=== PATIENT | female | born 1955 | race Caucasian/White ===

== ENCOUNTER → 2016-04-17 | Outpatient (CLI) | payer MEDICARE ==
--- NOTE | 2016-04-17 15:01 | XR ---
EXAMINATION TYPE: XR lumbosacral spine min 4V DATE OF EXAM: 04/17/2016 2:40 PM CLINICAL HISTORY: pain COMPARISON: NONE TECHNIQUE: Frontal, lateral, and oblique images of the lumbar spine are obtained. FINDINGS: There are 5 lumbar type vertebral bodies identified. The lumbar spine shows satisfactory alignment without evidence of acute fracture or dislocation. Vertebral body heights are within normal limits. Mild degenerative disc space narrowing. The facet joint arthropathy. The overlying soft ti ssue appears unremarkable. IMPRESSION: No acute fracture or dislocation is seen in the lumbar spine.ICD 10 NO FRACTURE, INITIAL EVALUATION
--- NOTE | 2016-04-17 15:03 | XR ---
EXAMINATION TYPE: XR thoracic spine complete DATE OF EXAM: 04/17/2016 2:40 PM CLINICAL HISTORY: pain TECHNIQUE: Frontal, lateral, and swimmer's view of thoracic spine are obtained. COMPARISON: None. FINDINGS: Thoracic spine show satisfactory alignment without evidence of acute fracture or dislocatio n. Vertebral body heights are preserved. Mild degenerative disc space narrowing is identified. Vis ualized ribs are unremarkable. IMPRESSION: No acute fracture or dislocation is seen in the thoracic spine. ICD 10 NO FRACTURE, INIT IAL EVALUATION
== END ==
LOC: RADXRMAIN 14:05
PROVIDERS: ATTEND Family Medicine
DX: M54.5 Low back pain (principal); M54.6 Pain in thoracic spine
CPT/HCPCS: 72072; 72110

== ENCOUNTER 2016-08-21 23:46 | Emergency (ER) | payer MEDICARE ==
[2016-08-21 23:50] VITALS: RESP 18
--- NOTE | 2016-08-22 00:18 | ED ---
Skin/Abscess/FB HPI - General Chief complaint: Skin/Abscess/Foreign Body Stated complaint: cyst Time Seen by Provider: 08/21/16 23:54 Source: patient, RN notes reviewed Mode of arrival: ambulatory Limitations: no limitations - History of Present Illness Initial comments: 61-year-old female presents emergency Department chief complaint of right jaw pain. Patient states started last 1 week.. Patient states that she has recurrent infections secondary to her dentition. She did state this is is the worse that it's been in the past. Patient denies any fever or chills. She states pain radiates up to her right side of her ear and face region. Patient denies any neck pain no neck stiffness. Patient does take chronic pain meds and which she is on Percocet. - Related Data Home Medications Medication Instructions Recorded Confirmed LORazepam [Ativan] 2 mg PO TID PRN 08/11/13 08/21/16 Levothyroxine Sodium [Synthroid] 25 mcg PO DAILY 08/11/13 08/21/16 Primidone [Mysoline] 50 mg PO DAILY 08/11/13 08/21/16 Aspirin 325 mg PO DAILY 01/31/15 08/21/16 Umeclidinium Stanton [Incruse 62.5 mcg INHALATION RT-DAILY PRN 01/31/15 08/21/16 Ellipta] Calcium Carb-Vit D 500Mg-200Un 1 tab PO DAILY 09/02/15 08/21/16 [Oscal 500+D] Zinc 50 mg PO DAILY 09/02/15 08/21/16 Biotin 5 mg PO DAILY 08/21/16 08/21/16 Multivitamins, Thera [Multivitamin 1 tab PO DAILY 08/21/16 08/21/16 (formulary)] Previous Rx's Medication Instructions Recorded Clindamycin HCl 300 mg PO Q6HR #40 cap 08/22/16 Allergies Allergy/AdvReac Type Severity Reaction Status Date / Time acetaminophen [From Vicodin] Allergy Unknown Verified 08/21/16 23:50 codeine Allergy Unknown Verified 08/21/16 23:50 hydrocodone bitartrate Allergy Unknown Verified 08/21/16 23:50 [From Vicodin] ibuprofen [From Motrin] Allergy Unknown Verified 08/21/16 23:50 oxycodone [From Percocet] Allergy Itching Verified 08/21/16 23:51 ANTIBIOTICS- ALL OF THEM Allergy Unknown Uncoded 08/21/16 23:50 Review of Systems ROS Statement: Those systems with pertinent positive or pertinent negative responses have been documented in the HPI. ROS Other: All systems not noted in ROS Statement are negative. Past Medical History Past Medical History: CVA/TIA, Osteoarthritis (OA) Additional Past Medical History / Comment(s): CPM, 4 STROKES History of Any Multi-Drug Resistant Organisms: None Reported Past Surgical History: Hysterectomy Additional Past Surgical History / Comment(s): uterine suspension Past Psychological History: Anxiety, Bipolar, Depression Smoking Status: Former smoker Past Alcohol Use History: None Reported Past Drug Use History: Marijuana General Exam Limitations: no limitations General appearance: alert, in no apparent distress Head exam: Present: atraumatic, normocephalic, normal inspection Eye exam: Present: normal appearance, PERRL, EOMI. Absent: scleral icterus, conjunctival injection, periorbital swelling ENT exam: Present: mucous membranes moist. Absent: normal exam, normal oropharynx (Edentulous, poor dentition there is swelling to right side of the jaw along more anterior chin region. There appears to be in abscesses as a large area of swelling with moderate tenderness) Neck exam: Present: normal inspection, full ROM. Absent: tenderness, meningismus, lymphadenopathy Respiratory exam: Present: normal lung sounds bilaterally. Absent: respiratory distress, wheezes, rales, rhonchi, stridor Cardiovascular Exam: Present: regular rate, normal rhythm, normal heart sounds. Absent: systolic murmur, diastolic murmur, rubs, gallop, clicks Skin exam: Present: warm, dry, intact, normal color. Absent: rash Course Vital Signs 08/21/16 23:46 Temperature 97.1 F L Pulse Rate 88 Respiratory 18 Rate Blood Pressure 104/69 O2 Sat by Pulse 97 Oximetry Medical Decision Making - Medical Decision Making 61-year-old female presented emergency Department for facial swelling. Patient has dental infection there is no drainable abscess. There is no evidence of ostomy nurse on x-ray. Return parameters were discussed. Disposition Clinical Impression: Dental infection Disposition: HOME SELF-CARE Condition: Stable Instructions: Dental Abscess (ED) Additional Instructions: Please return to the Emergency Department if symptoms worsen or any other concerns. Prescriptions: Clindamycin HCl 300 mg PO Q6HR #40 cap Referrals: Emeka French DO [Primary Care Provider] - 1-2 days Time of Disposition: 01:37
--- NOTE | 2016-08-22 01:22 | XR ---
EXAM: XR Mandible Complete, 4 or More Views CLINICAL HISTORY: Reason: Pain TECHNIQUE: Frontal, oblique and lateral views of the mandible. COMPARISON: No relevant prior studies available. FINDINGS: Dental: No definitive acute findings. Bones/joints: Unremarkable. No acute fracture. No dislocation. Soft tissues: Unremarkable. IMPRESSION: Normal mandible x-rays. If there is further clinical concern, CT may be performed for further evaluation.
[2016-08-22] MEDS ORDERED: MORPHINE SULFATE 4 MG/ML SYRINGE IM STA (01:35)
[2016-08-22] MEDS ORDERED: CLINDAMYCIN 150 MG CAP PO STA (01:35)
[2016-08-22 02:28] VITALS: BP 117/58; PULSE 82; TEMP 97.6
== END 2016-08-22 02:26 | disposition home or self-care (01) ==
LOC: EC 23:46
DX: K04.7 Periapical abscess without sinus (principal); H92.01 Otalgia, right ear; M19.90 Unspecified osteoarthritis, unspecified site; Z87.891 Personal history of nicotine dependence; Z79.82 Long term (current) use of aspirin; Z79.899 Other long term (current) drug therapy; Z88.1 Allergy status to other antibiotic agents; Z88.5 Allergy status to narcotic agent; Z88.6 Allergy status to analgesic agent; Z88.8 Allergy status to other drugs, medicaments and biological substances
CPT/HCPCS: 70110; 99283; 96372; J2270

== ENCOUNTER 2017-02-26 19:48 | Emergency (ER) | payer MEDICARE ==
--- NOTE | 2017-02-26 20:53 | XR ---
EXAMINATION TYPE: XR chest 2V DATE OF EXAM: 02/26/2017 COMPARISON: 11/01/2015 HISTORY: Cough TECHNIQUE: Frontal and lateral views of the chest are obtained. FINDINGS: There is no heart failure nor confluent pneumonic infiltrate. There is a calcified granulo ma in the right middle lobe. Heart size is normal. There is no evidence of pleural effusion. Bony tho rax appears intact. IMPRESSION: No active cardiopulmonary disease. No change.
[2017-02-26 21:01] LABS: Appearance,Urine Cloudy (Clear); Bacteria,Urine Rare /hpf; Bilirubin,Urine Negative (Negative); Blood,Urine Moderate (Negative); Color,Urine Yellow; Glucose,Urine (UA) Negative (Negative); Ketones,Urine Negative (Negative); Leukocyte Esterase,Urine Large (Negative); Mucus,Urine Rare /hpf; Nitrite,Urine Negative (Negative); PH, Urine 5.5 (5.0-8.0); Protein,Urine 1+ (Negative); RBC,Urine 61 /hpf (0-5); Specific Gravity,Urine 1.019 (1.001-1.035); Squamous Epithelial Cell,Urine 1 /hpf (0-4); Urobilinogen,Urine <2.0 mg/dL (<2.0); WBC,Urine >182 /hpf (0-5)
--- NOTE | 2017-02-26 21:04 | XR ---
EXAMINATION TYPE: XR soft tissue neck DATE OF EXAM: 02/26/2017 COMPARISON: NONE HISTORY: Cough TECHNIQUE: 3 views FINDINGS: Epiglottis is normal. Subglottic trachea appears normal. Tonsils and adenoids appear normal . There is no sign of a foreign body. IMPRESSION: Normal cervical soft tissue exam.
--- NOTE | 2017-02-26 21:22 | ED ---
General Adult HPI - General Chief complaint: Abdominal Pain Stated complaint: UTI/throat problems Time Seen by Provider: 02/26/17 20:26 Source: patient, RN notes reviewed Mode of arrival: ambulatory Limitations: no limitations - History of Present Illness Initial comments: This a 61-year-old female presents emergency Department chief complaint of sore throat, throat irritation and UTI symptoms. Patient states symptoms have been present for 2 weeks. Patient states she has a dry cough nonproductive and slight running nose. Patient states that she has no difficulty swallowing difficulty breathing. She does admit to some hypothyroidism though she states that she takes Synthroid for. Patient denies any known fever or chills denies any flank pain. She does complain of some lower abdominal pain with associated urinary frequency and dysuria. Patient states she's been trying to treat it with [id number] medications and no relief. - Related Data Home Medications Medication Instructions Recorded Confirmed LORazepam [Ativan] 2 mg PO TID PRN 08/11/13 02/26/17 Levothyroxine Sodium [Synthroid] 25 mcg PO DAILY 08/11/13 02/26/17 Primidone [Mysoline] 50 mg PO DAILY 08/11/13 02/26/17 Aspirin 325 mg PO DAILY 01/31/15 02/26/17 Calcium Carb-Vit D 500Mg-200Un 1 tab PO DAILY 09/02/15 02/26/17 [Oscal 500+D] Zinc 50 mg PO DAILY 09/02/15 02/26/17 Multivitamins, Thera [Multivitamin 1 tab PO DAILY 08/21/16 02/26/17 (formulary)] oxyCODONE HCL 10 mg PO HS PRN 02/26/17 02/26/17 oxyCODONE-APAP 10-325MG [Percocet 1 tab PO ONCE PRN 02/26/17 02/26/17 10-325 mg] Previous Rx's Medication Instructions Recorded Ciprofloxacin HCl [Cipro] 500 mg PO Q12HR #10 tablet 02/26/17 Allergies Allergy/AdvReac Type Severity Reaction Status Date / Time acetaminophen [From Vicodin] Allergy Unknown Verified 02/26/17 20:43 codeine Allergy Unknown Verified 02/26/17 20:43 hydrocodone bitartrate Allergy Unknown Verified 02/26/17 20:43 [From Vicodin] ibuprofen [From Motrin] Allergy Unknown Verified 02/26/17 20:43 ANTIBIOTICS- ALL OF THEM Allergy Unknown Uncoded 02/26/17 20:07 Review of Systems ROS Statement: Those systems with pertinent positive or pertinent negative responses have been documented in the HPI. ROS Other: All systems not noted in ROS Statement are negative. Past Medical History Past Medical History: CVA/TIA, Osteoarthritis (OA) Additional Past Medical History / Comment(s): CPM, 4 STROKES History of Any Multi-Drug Resistant Organisms: None Reported Past Surgical History: Hysterectomy Additional Past Surgical History / Comment(s): uterine suspension Past Psychological History: Anxiety, Bipolar, Depression Smoking Status: Former smoker Past Alcohol Use History: None Reported Past Drug Use History: Marijuana General Exam Limitations: no limitations General appearance: alert, in no apparent distress Head exam: Present: atraumatic, normocephalic, normal inspection Eye exam: Present: normal appearance, PERRL, EOMI. Absent: scleral icterus, conjunctival injection, periorbital swelling ENT exam: Present: normal exam, normal oropharynx, mucous membranes moist Neck exam: Present: normal inspection, full ROM. Absent: tenderness, meningismus, lymphadenopathy Respiratory exam: Present: normal lung sounds bilaterally. Absent: respiratory distress, wheezes, rales, rhonchi, stridor Cardiovascular Exam: Present: regular rate, normal rhythm, normal heart sounds. Absent: systolic murmur, diastolic murmur, rubs, gallop, clicks GI/Abdominal exam: Present: soft, tenderness (Mild lower abdominal tenderness), normal bowel sounds. Absent: distended, guarding, rebound, rigid Back exam: Absent: CVA tenderness (R), CVA tenderness (L) Skin exam: Present: warm, dry, intact, normal color. Absent: rash Course Vital Signs 02/26/17 20:03 Temperature 98.2 F Pulse Rate 102 H Respiratory 20 Rate Blood Pressure 112/86 O2 Sat by Pulse 97 Oximetry Medical Decision Making - Medical Decision Making 61-year-old female presented for UTI symptoms, sore throat. Patient does have evidence of urinary tract infection. Patient was started on antibiotics at this time. Patient symptoms of sore throat mostly related postnasal drainage. Patient's x-rays reviewed no acute abnormality. Patient's vitals are stable this time. Patient will follow-up with PCP and return parameters were discussed. - Lab Data Lab Results 02/26/17 Range/Units 20:41 Urine Color Yellow Urine Appearance Cloudy H (Clear) Urine pH 5.5 (5.0-8.0) Ur Specific [place] 1.019 (1.001-1.035) Urine Protein 1+ H (Negative) Urine Glucose (UA) Negative (Negative) Urine Ketones Negative (Negative) Urine Blood Moderate H (Negative) Urine Nitrite Negative (Negative) Urine Bilirubin Negative (Negative) Urine Urobilinogen <2.0 (<2.0) mg/dL Ur Leukocyte Esterase Large H (Negative) Urine RBC 61 H (0-5) /hpf Urine WBC >182 H (0-5) /hpf Ur Squamous Epith Cells 1 (0-4) /hpf Urine Bacteria Rare H (None) /hpf Urine Mucus Rare H (None) /hpf Disposition Clinical Impression: Throat discomfort, UTI (urinary tract infection) Disposition: HOME SELF-CARE Condition: Stable Instructions: Urinary Tract Infection in Women (ED) Additional Instructions: Please return to the Emergency Department if symptoms worsen or any other concerns. Prescriptions: Ciprofloxacin HCl [Cipro] 500 mg PO Q12HR #10 tablet Referrals: Emeka French DO [Primary Care Provider] - 1-2 days Time of Disposition: 21:22
[2017-02-26] MEDS ORDERED: CIPROFLOXACIN HCL 500 MG TAB PO STA (21:24)
[2017-02-26] MEDS ORDERED: oxyCODONE-APAP 5-325MG 1 EACH TAB PO STA (21:25)
[2017-02-26 21:54] VITALS: BP 119/56; PULSE 88; RESP 18; TEMP 97.1
== END 2017-02-26 21:50 | disposition home or self-care (01) ==
LOC: EC 19:48
DX: N39.0 Urinary tract infection, site not specified (principal); J02.9 Acute pharyngitis, unspecified; R05 Cough; R09.89 Other specified symptoms and signs involving the circulatory and respiratory systems; E03.9 Hypothyroidism, unspecified; F31.9 Bipolar disorder, unspecified; Z86.73 Personal history of transient ischemic attack (TIA), and cerebral infarction without residual deficits; Z87.891 Personal history of nicotine dependence; Z98.890 Other specified postprocedural states; Z79.82 Long term (current) use of aspirin; Z79.899 Other long term (current) drug therapy; Z88.1 Allergy status to other antibiotic agents; Z88.5 Allergy status to narcotic agent; Z88.6 Allergy status to analgesic agent
CPT/HCPCS: 70360; 71046; 81001; 87077; 87086; 87186; 99284

== ENCOUNTER 2017-03-26 09:27 | Inpatient (IN) | payer MEDICARE ==
[2017-03-26] MEDS ORDERED: SODIUM CHLORIDE 0.9% 1,000 ML IV STA (10:07)
--- NOTE | 2017-03-26 10:10 | ED ---
Chest Pain HPI - General Chief Complaint: Chest Pain Stated Complaint: CHEST PAIN Time Seen by Provider: 03/26/17 10:07 Source: patient, family, RN notes reviewed Mode of arrival: wheelchair Limitations: no limitations - History of Present Illness Initial Comments: This is a 60-year-old female who states she had the onset sometime early this morning of anterior chest pain it woke her from sleep pressure-like severe it radiated down her left arm and up her left neck. She states she drifts back off to sleep and then 06:30 had increased pain now is about 5/10 she states was much worse in an she also states tonight before she had nausea and vomiting and started developing slight diarrhea today. Denies any cough fevers chills sweats she was over exposed to somebody with flu symptoms or cold symptoms several days ago. The patient did have exposure to someone with cold symptoms with cough and sneezing. No known history of heart disease she has had similar pains in the past however MD Complaint: chest pain, other - Related Data Home Medications Medication Instructions Recorded Confirmed LORazepam [Ativan] 2 mg PO TID PRN 08/11/13 03/26/17 Levothyroxine Sodium [Synthroid] 25 mcg PO DAILY 08/11/13 03/26/17 Primidone [Mysoline] 50 mg PO HS 08/11/13 03/26/17 Aspirin 325 mg PO HS 01/31/15 03/26/17 Calcium Carb-Vit D 500Mg-200Un 1 tab PO HS 09/02/15 03/26/17 [Oscal 500+D] Zinc 50 mg PO HS 09/02/15 03/26/17 Multivitamins, Thera [Multivitamin 1 tab PO HS 08/21/16 03/26/17 (formulary)] oxyCODONE HCL 10 mg PO HS PRN 02/26/17 03/26/17 Allergies Allergy/AdvReac Type Severity Reaction Status Date / Time acetaminophen [From Vicodin] Allergy Unknown Verified 03/26/17 09:54 codeine Allergy Unknown Verified 03/26/17 09:54 hydrocodone bitartrate Allergy Unknown Verified 03/26/17 09:54 [From Vicodin] ibuprofen [From Motrin] Allergy Unknown Verified 03/26/17 09:54 ANTIBIOTICS- ALL OF THEM Allergy Unknown Uncoded 03/26/17 09:33 Review of Systems ROS Statement: Those systems with pertinent positive or pertinent negative responses have been documented in the HPI. ROS Other: All systems not noted in ROS Statement are negative. Past Medical History Past Medical History: CVA/TIA, Osteoarthritis (OA) Additional Past Medical History / Comment(s): CPM, 4 STROKES History of Any Multi-Drug Resistant Organisms: None Reported Past Surgical History: Hysterectomy Additional Past Surgical History / Comment(s): uterine suspension Past Psychological History: Anxiety, Bipolar, Depression Smoking Status: Former smoker Past Alcohol Use History: None Reported Past Drug Use History: Marijuana General Exam - General Exam Comments Initial Comments: This is a well-developed well-nourished awake alert anxious appearing female Limitations: no limitations General appearance: alert, anxious Head exam: Present: atraumatic, normocephalic, normal inspection Eye exam: Present: normal appearance, PERRL, EOMI. Absent: scleral icterus, conjunctival injection, periorbital swelling ENT exam: Present: normal exam, mucous membranes moist Neck exam: Present: normal inspection. Absent: tenderness, meningismus, lymphadenopathy Respiratory exam: Present: normal lung sounds bilaterally. Absent: respiratory distress, wheezes, rales, rhonchi, stridor, chest wall tenderness Cardiovascular Exam: Present: regular rate, normal rhythm, normal heart sounds. Absent: systolic murmur, diastolic murmur, rubs, gallop, clicks GI/Abdominal exam: Present: soft, normal bowel sounds. Absent: distended, tenderness, guarding, rebound, rigid Extremities exam: Present: normal inspection, full ROM, normal capillary refill. Absent: tenderness, pedal edema, joint swelling, calf tenderness Back exam: Present: normal inspection, full ROM. Absent: tenderness, CVA tenderness (R), CVA tenderness (L), muscle spasm, paraspinal tenderness, vertebral tenderness, rash noted Neurological exam: Present: alert, oriented X3, CN II-XII intact Psychiatric exam: Present: normal affect, anxious Skin exam: Present: warm, dry, intact, normal color. Absent: rash Course Vital Signs 03/26/17 03/26/17 03/26/17 09:30 10:32 10:37 Temperature 97.3 F L Pulse Rate 94 87 100 Respiratory 20 18 20 Rate Blood Pressure 118/67 139/80 115/75 O2 Sat by Pulse 97 96 96 Oximetry 03/26/17 03/26/17 03/26/17 10:43 11:00 12:00 Temperature Pulse Rate 90 92 92 Respiratory 20 20 20 Rate Blood Pressure 120/75 110/62 107/62 O2 Sat by Pulse 97 95 95 Oximetry 03/26/17 13:39 Temperature Pulse Rate 99 Respiratory 18 Rate Blood Pressure 107/57 O2 Sat by Pulse 94 L Oximetry - Reevaluation(s) Reevaluation #1: 03/26/17 14:57 Patient did get response from nitroglycerin with resolution of her pain. Chest Pain MDM - MDM I did review the imaging and reports no acute findings. The patient will be admitted to discuss case with Dr. Taylor. Cardiology will be consulted. Critical Care Time Critical Care Time: Yes Critical Care Time: 31 minutes of critical care time which includes initial presentation with history physical labs x-rays several reevaluation patient responsive therapy discuss with the patient family regarding findings discussion with Dr. Taylor. Admission orders and documentation of the above. Disposition Clinical Impression: Chest pain, Unstable angina pectoris Disposition: ADMITTED IP TO THIS HOSP Condition: Stable Referrals: Emeka French DO [Primary Care Provider] - 1-2 days
[2017-03-26] MEDS: NITROGLYCERIN SL TABS 0.4 MG TAB SUBLINGUAL STA ×2 (10:32→10:38)
[2017-03-26 10:34] LABS: Basophils # (A) 0.1 k/uL (0-0.2); Basophils % (A) 1 %; Eosinophils # (A) 0.2 k/uL (0-0.7); Eosinophils % (A) 1 %; HGB 14.8 gm/dL (11.4-16.0); Lymphocytes # (A) 1.7 k/uL (1.0-4.8); Lymphocytes % (A) 16 %; MCH 27.5 pg (25.0-35.0); MCHC 31.5 g/dL (31.0-37.0); MCV 87.2 fL (80.0-100.0); Mean Platelet Volume 6.9; Monocytes # (A) 0.6 k/uL (0-1.0); Monocytes % (A) 5 %; Neutrophils # (A) 8.3 k/uL (1.3-7.7); Neutrophils % (A) 76 %; Platelet Count 369 k/uL (150-450); RDW 13.7 % (11.5-15.5); WBC 10.9 k/uL (3.8-10.6)
[2017-03-26] MEDS ORDERED: NITROGLYCERIN OINT 1 INCH/GM PACKET TOPICAL STA (10:44)
[2017-03-26] MEDS ORDERED: LORazepam 2 MG/ML INJ IV STA (10:45)
[2017-03-26 10:48] LABS: ALT 27 U/L (9-52); AST 24 U/L (14-36); Albumin 4.3 g/dL (3.5-5.0); Alkaline Phosphatase 102 U/L (38-126); Amylase 82 U/L (30-110); Anion Gap 16 mmol/L; Blood Urea Nitrogen 12 mg/dL (7-17); Carbon Dioxide 20 mmol/L (22-30); Chloride 108 mmol/L (98-107); Glucose 124 mg/dL (74-99); Lipase 74 U/L (23-300); Magnesium 1.9 mg/dL (1.6-2.3); Potassium 4.2 mmol/L (3.5-5.1); Sodium 144 mmol/L (137-145); Total Bilirubin 0.5 mg/dL (0.2-1.3); Total Protein 7.7 g/dL (6.3-8.2)
[2017-03-26 10:52] LABS: D-Dimer 0.46 mg/L FEU (<0.60); Partial Thromboplastin Time 25.3 sec (22.0-30.0)
[2017-03-26 11:06] LABS: Creatine Kinase 36 U/L (30-135)
--- NOTE | 2017-03-26 11:15 | XR ---
EXAMINATION TYPE: XR chest 2V DATE OF EXAM: 03/26/2017 COMPARISON: 02/26/2017 HISTORY: 61-year-old female with chest pain TECHNIQUE: AP and lateral views FINDINGS: The cardiomediastinal silhouette, aorta, and pulmonary vasculature are within normal limits. Stable calcified granuloma in the right middle lobe. No consolidation or pleural effusion. IMPRESSION: Chronic changes without acute cardiopulmonary process.
[2017-03-26 11:19] LABS: Creatine Kinase MB <0.2 ng/mL (0.0-2.4); Troponin I <0.012 ng/mL (0.000-0.034)
[2017-03-26] MEDS ORDERED: HEPARIN SOD,PORK IN 0.45% NACL 25,000 UNIT in 0.45% NACL 1 500ML.BAG IV SCH (15:00)
[2017-03-26] MEDS ORDERED: NITROGLYCERIN SL TABS 0.4 MG TAB SUBLINGUAL PRN (15:00)
[2017-03-26] MEDS: HEPARIN SODIUM,PORCINE 5,000 UNIT/ML 1 ML VIAL IV ONE ×2 (15:28→22:40)
--- NOTE | 2017-03-26 16:21 | P.HPIM ---
History of Present Illness H&P Date: 03/26/17 Chief Complaint: chest pain This is a 61-year-old female one of Dr. French with a previous medical history significant for central pontine myelinosis(CPM) , myoclonic jerking, tremors, hypothyroidism, start arthritis, chronic tobacco use and dependence, patient was initially diagnosed with severe endometriosis for which she underwent total abdominal hysterectomy with bilateral salpingo-oophorectomy after surgery she hemorrhaged and she ended up having significant hypotension requiring IV fluid resuscitation and few years later she was diagnosed with central pontine melanosis at [facility] she was disabled because of that, patient also was diagnosed with anxiety and depressive disorder along with bipolar disorder, patient was in her usual state of health about today in the morning at 2:00 in the morning woke up in the morning complaining of left- sided chest heaviness radiating to the neck and left shoulder down to the left arm with increased numbness patient felt like a choking episode that traveled through her body was significant heaviness in her chest, patient [facility] had a twelve-lead EKG that showed normal sinus rhythm with nonspecific T-wave changes, patient did have a bit of ST depression in V2 and V3, patient did receive nitroglycerin in the ER and made her pain goes away patient was started on aspirin 325 mg orally once every day also she was started on heparin drip and she was placed on nitroglycerin paste and she was admitted to the hospital cardiology consultation was obtained. Review of Systems Constitutional: Reports chronic pain, Denies chronic headaches, Denies lethargy , Denies malaise, Denies weakness, Denies weight gain, Denies weight loss Eyes: denies blurred vision, denies bulging eye, denies decreased vision, denies diplopia Ears: deny: decreased hearing Ears, nose, mouth and throat: Denies dysphagia, Denies neck lump, Denies swelling in throat, Denies sore throat Cardiovascular: Reports chest pain, Reports decreased exercise tolerance, Reports dyspnea on exertion, Reports high blood pressure, Reports shortness of breath, Denies palpitations, Denies paroxysmal nocturnal dyspnea, Denies phlebitis, Denies rapid heart beat Respiratory: Denies congestion, Denies cough, Denies cough with sputum, Denies home oxygen, Denies sleep apnea, Denies snoring, Denies wheezing Gastrointestinal: Denies abdominal pain, Denies bloating, Denies BRBPR, Denies heartburn, Denies melena, Denies nausea, Denies vomiting Genitourinary: Denies dysuria, Denies hematuria Menstruation: Reports postmenopausal Musculoskeletal: Reports low back pain, Denies myalgias Musculoskeletal: absent: ankle pain, ankle stiffness, ankle swelling, elbow pain , elbow stiffness, elbow swelling, foot pain, foot stiffness, foot swelling, hand pain, hand stiffness, hand swelling, hip pain, hip stiffness, hip swelling , knee pain, knee stiffness, knee swelling, shoulder pain, shoulder stiffness, shoulder swelling, wrist pain, wrist stiffness, wrist swelling Integumentary: Denies pruritus, Denies rash Psychiatric: Denies anxiety, Denies depression Endocrine: Denies fatigue, Denies weight change Past Medical History Past Medical History: CVA/TIA, Musculoskeletal Disorder, Neurologic Disorder ( Central pontine melanosis.), Osteoarthritis (OA), Thyroid Disorder Additional Past Medical History / Comment(s): CPM, 4 STROKES, history of cardiac arrest at 12-year-old after appendectomy, central pontine melanosis, myoclonic jerks, tremors, anxiety, depression, bipolar disorder, H/O cardiac arrest at 12 year old post Appendectomy. History of Any Multi-Drug Resistant Organisms: None Reported Past Surgical History: Appendectomy, Hysterectomy Additional Past Surgical History / Comment(s): Total abdominal hysterectomy and bilateral sopping oophorectomy, appendectomy at the age of 12 followed by a cardiac arrest Past Psychological History: Anxiety, Bipolar, Depression Smoking Status: Former smoker (patient used to smoke about a pack every day she smoked for 30 years and quit about 5 years ago, she drinks occasionally a glass of wine, she is disabled.) Past Alcohol Use History: Occasional Past Drug Use History: Marijuana - Past Family History Mother Family Medical History: Diabetes Mellitus (mother is 79-year-old with a history of diabetes mellitus type 2 she also has mental health issues including bipolar disorder) Father Family Medical History: Cancer (father at age 69 from lung cancer with metastatic disease.) Brother(s) Family Medical History: Coronary Artery Disease (CAD) (patient has 5 brothers one of them with CABG.) Sister(s) Family Medical History: No Reported History (patient has 2 sisters or major medical problems.) Daughter(s) Family Medical History: No Reported History (patient has a daughter 42-year-old no major medical problems.) Medications and Allergies Home Medications Medication Instructions Recorded Confirmed Type LORazepam [Ativan] 2 mg PO TID PRN 08/11/13 03/26/17 History Levothyroxine Sodium [Synthroid] 25 mcg PO DAILY 08/11/13 03/26/17 History Primidone [Mysoline] 50 mg PO HS 08/11/13 03/26/17 History Aspirin 325 mg PO HS 01/31/15 03/26/17 History Calcium Carb-Vit D 500Mg-200Un 1 tab PO HS 09/02/15 03/26/17 History [Oscal 500+D] Zinc 50 mg PO HS 09/02/15 03/26/17 History Multivitamins, Thera [Multivitamin 1 tab PO HS 08/21/16 03/26/17 History (formulary)] oxyCODONE HCL 10 mg PO HS PRN 02/26/17 03/26/17 History Allergies Allergy/AdvReac Type Severity Reaction Status Date / Time acetaminophen [From Vicodin] Allergy Unknown Verified 03/26/17 09:54 codeine Allergy Unknown Verified 03/26/17 09:54 hydrocodone bitartrate Allergy Unknown Verified 03/26/17 09:54 [From Vicodin] ibuprofen [From Motrin] Allergy Unknown Verified 03/26/17 09:54 ANTIBIOTICS- ALL OF THEM Allergy Unknown Uncoded 03/26/17 09:33 Physical Exam Vitals: Vital Signs Temp Pulse Resp BP Pulse Ox 03/26/17 15:22 97.2 F L 80 81 H 125/94 94 L 03/26/17 13:39 99 18 107/57 94 L 03/26/17 12:00 92 20 107/62 95 03/26/17 11:00 92 20 110/62 95 03/26/17 10:43 90 20 120/75 97 03/26/17 10:37 100 20 115/75 96 03/26/17 10:32 87 18 139/80 96 03/26/17 09:30 97.3 F L 94 20 118/67 97 Intake and Output 03/26/17 03/26/17 03/26/17 06:59 14:59 22:59 Other: Weight 77.111 kg Patient Weight 03/27/17 06:59 Weight 77.111 kg - Constitutional General appearance: no acute distress - EENT Eyes: anicteric sclerae, EOMI, PERRLA, no ptosis, no scleral icterus, normal appearance ENT: hearing grossly normal, NA/AT, normal oropharynx, no thrush Ears: bilateral: normal - Neck Neck: no lymphadenopathy, normal ROM, no rigidity, no stridor, no thyromegaly Carotids: bilateral: upstroke normal Thyroid: bilateral: normal size - Respiratory Respiratory: bilateral: diminished, negative: dullness, rales, rhonchi, wheezing , prolonged expiration, prolonged inspiration - Cardiovascular Rhythm: regular Heart sounds: normal: S1, S2 Abnormal Heart Sounds: no systolic murmur, no S3 Gallop, no S4 Gallop, no click - Gastrointestinal General gastrointestinal: normal bowel sounds, soft, no splenomegaly, no tenderness, no umbilical hernia, no ventral hernia - Integumentary Integumentary: normal, normal turgor - Neurologic Neurologic: CNII-XII intact - Musculoskeletal Musculoskeletal: strength equal bilaterally - Psychiatric Psychiatric: A&O x's 3, appropriate affect, intact judgment & insight Results CBC & Chem 7: 03/26/17 09:52 03/26/17 09:52 Labs: Abnormal Lab Results - Last 24 Hours (Table) 03/26/17 03/26/17 Range/Units 09:52 09:52 WBC 10.9 H (3.8-10.6) k/uL Hct 47.0 H (34.0-46.0) % Neutrophils # 8.3 H (1.3-7.7) k/uL Chloride 108 H (98-107) mmol/L Carbon Dioxide 20 L (22-30) mmol/L Glucose 124 H (74-99) mg/dL Thrombosis Risk Factor Assmnt - DVT/VTE Prophylaxis DVT/VTE Prophylaxis: Pharmacologic Prophylaxis ordered, Mechanical Prophylaxis ordered Assessment and Plan Assessment: Assessment and Plan: 1. Chest pain non cardiac , patient will be admitted as observation, cardiac enzymes and will check stress test in AM, will continue with ASA 325 mg orally daily and Heparin drip for now. We will continue with nitroglycerin paste 1 inch every 6 hours. 2. Hypothyroidism. will continue with synthroid 25 mcg orally daily. 3. Bipolar disorder. stable. Continue patient on Ativan 1 mg orally 3 times every day. 4. Anxiety. currently on Ativan 1 mg orally tid. 5. History of CVA. Continue aspirin 325 mg orally once every day. 6. History of central pontine myelinosis with myoclonic jerks and tremor. Continue Mysoline 50 mg orally once every day. 7. DVT prophylaxis . continue with heparin drip for now. 8. GI prophylaxis. will continue with PPI. 9. OBV.
[2017-03-26] MEDS: SODIUM CHLORIDE 0.9% 1,000 ML IV SCH (17:20)
[2017-03-26 17:44] LABS: Creatine Kinase 42 U/L (30-135)
[2017-03-26 17:56] LABS: Creatine Kinase MB <0.2 ng/mL (0.0-2.4); Troponin I <0.012 ng/mL (0.000-0.034)
[2017-03-26] MEDS: NITROGLYCERIN OINT 1 INCH/GM PACKET TOPICAL SCH (17:58)
[2017-03-26] MEDS: LORazepam 1 MG TAB PO PRN (20:48)
[2017-03-26] MEDS: PRIMIDONE 50 MG TAB PO SCH (20:48)
[2017-03-26] MEDS: ZINC SULFATE 220 MG CAP PO SCH (20:48)
[2017-03-26] MEDS: CALCIUM CARB-VIT D 500MG-200UN 1 EACH TAB PO SCH (20:48)
[2017-03-26] MEDS: MULTIVITAMINS, THERA 1 EACH TAB PO SCH (20:49)
[2017-03-26 22:06] LABS: Creatine Kinase 64 U/L (30-135)
[2017-03-26 22:19] LABS: Creatine Kinase MB 0.4 ng/mL (0.0-2.4); Troponin I <0.012 ng/mL (0.000-0.034)
[2017-03-26] MEDS ORDERED: HEPARIN SODIUM,PORCINE 5,000 UNIT/ML 1 ML VIAL IV PRN (23:20)
[2017-03-27] MEDS: NITROGLYCERIN OINT 1 INCH/GM PACKET TOPICAL SCH ×2 (00:58→06:31)
[2017-03-27 06:21] LABS: Cholesterol 212 mg/dL (<200); HDL Cholesterol 46 mg/dL (40-60); LDL Cholesterol,Calculated 141 mg/dL (0-99); Triglycerides 124 mg/dL (<150)
[2017-03-27] MEDS: LEVOTHYROXINE 25 MCG TAB PO SCH ×2 (06:31→08:28)
[2017-03-27] MEDS ORDERED: ATORVASTATIN 20 MG TAB PO SCH (09:00)
[2017-03-27] MEDS ORDERED: ASPIRIN 325 MG TAB PO SCH (09:00)
--- NOTE | 2017-03-27 10:01 | CONS ---
CONSULTATION Mrs. Anderson is a 61-year-old female patient of Dr. French, history of central pontine myelinolysis, prior history of smoking which she stopped 5 years ago, who presented with symptoms of chest discomfort. The patient has a known history of choking sensation that apparently appears suddenly, has been going on for the last 20 years or so ago. Yesterday, she had an episode was associated with subsequently with chest discomfort radiating to the left arm and to the left neck with some numbness and because of that came into the emergency room, subsequently admitted. She is not very active physically, but has no associated chest discomfort. Her breathing is stable. She denies any dizziness or palpitation. She has no clear PND, orthopnea, or peripheral edema. She has a history of anxiety and depressive disorder with bipolar disorder as well. Her coronary risk factors are negative for the history of smoking or diabetes. She is not hypertensive. She has a prior history of hyperlipidemia, but not treated at this point. Past surgical history is remarkable for abdominal hysterectomy, bilateral salpingo- oophorectomy, appendectomy. MEDICATION: Medications at home include oxycodone, zinc, Mysoline, levothyroxine, Ativan, Os-Oj and aspirin. REVIEW OF SYSTEMS: RESPIRATORY SYSTEM: She has no recent wheezing. No cough. No history of obstructive lung disease. GI SYSTEM: No recent GI bleeding. No peptic ulcer disease. SYSTEM: No dysuria or hematuria, NERVOUS SYSTEM: She had a prior history of stroke and TIA. PHYSICAL EXAMINATION: A 61-year-old female, alert, oriented, in no apparent distress. Blood pressure 116/70 with the heart rate in the 60s. HEAD: Normocephalic. EYES: Sclerae anicteric. NECK: Good carotid upstroke. No bruit. No jugular venous distention. LUNGS: Clear to auscultation. HEART: Regular rate and rhythm. S1, S2. No S3, no S4. No murmur or rub. ABDOMEN: Soft, nontender. Positive bowel sounds. No organomegaly. EXTREMITIES: No edema. Intact distal pulses. LAB DATA: Lab data revealed troponin less than 0.012 for 3 samples. BUN creatinine 12 and 0.72. Cholesterol 212, LDL of 141. NT proBNP of 284. Hemoglobin of 14.8. EKG reveals sinus mechanism, normal axis and intervals with nonspecific T-wave changes anteriorly without any changes. Chest x-ray revealed no acute changes. IMPRESSION: 1. Symptoms of chest discomfort, atypical for ischemic heart disease, probable noncardiac. 2. History of central pontine myelinolysis. 3. History of hypothyroidism. 4. Hyperlipidemia. RECOMMENDATION: I will stop her IV heparin and her nitrate. I will add to her regimen a statin. I will proceed to obtain a stress echocardiogram and depending on those findings, further recommendation will be made. Thank you for this consult. We will follow with you. MMODL / IJN: [id number] /
--- NOTE | 2017-03-27 11:03 | ECHOF ---
Referral Reason: MEASUREMENTS -------- HEIGHT: 165.1 cm WEIGHT: 76.2 kg BP: 116/70 RVIDd: 2.3 cm (< 3.3) IVSd: 0.7 cm (0.6 - 1.1) LVIDd: 3.6 cm (3.9 - 5.3) LVPWd: 0.8 cm (0.6 - 1.1) IVSs: 1.1 cm LVIDs: 2.4 cm LVPWs: 1.0 cm LA Diam: 2.6 cm (2.7 - 3.8) LAESV Index (A-L): 18.81 ml/m Ao Diam: 2.5 cm (2.0 - 3.7) AV Cusp: 1.7 cm (1.5 - 2.6) LA Diam: 2.6 cm (2.7 - 3.8) MV EXCURSION: 15.944 mm (> 18.000) MV EF SLOPE: 91 mm/s (70 - 150) EPSS: 0.3 cm MV E Isai: 0.71 m/s MV DecT: 184 ms MV A Isai: 0.66 m/s MV E/A Ratio: 1.08 RAP: 5.00 mmHg RVSP: 25.15 mmHg FINDINGS -------- Sinus rhythm. This was a technically good study. LV size, wall thickness and systolic function are normal, with an EF greater than 55%. The left grzegorz tricular size is normal. The right ventricle is normal in size. Normal LA size by volume 22+/-6 ml/m2. The right atrial size is normal. The aortic valve is trileaflet, and appears structurally normal. No aortic stenosis or regurgitation. The mitral valve is normal. Mild mitral regurgitation is present. The tricuspid valve appears structurally normal. Mild tricuspid regurgitation present. There is n o evidence of pulmonary hypertension. The right ventricular systolic pressure, as measured by Doppl er, is 25.15mmHg. There is no pulmonic regurgitation present. The aortic root size is normal. There is no pericardial effusion. CONCLUSIONS -------- 1. Sinus rhythm. 2. LV size, wall thickness and systolic function are normal, with an EF greater than 55%. 3. The left ventricular size is normal. 4. Normal LA size by volume 22+/-6 ml/m2. 5. The aortic valve is trileaflet, and appears structurally normal. No aortic stenosis or regurgitati on. 6. Mild mitral regurgitation is present. 7. Mild tricuspid regurgitation present. 8. There is no evidence of pulmonary hypertension. 9. There is no pulmonic regurgitation present. 10. The aortic root size is normal. 11. There is no pericardial effusion. SHOE STITCHER: Rona Will RDCS
[2017-03-27] MEDS ORDERED: ALPRAZolam 0.5 MG TAB PO PRN (11:53)
[2017-03-27] MEDS ORDERED: ALPRAZolam 0.25 MG TAB PO PRN (11:53)
[2017-03-27] MEDS ORDERED: SODIUM CHLORIDE 0.9% 1,000 ML in EMPTY BAG 1 BAG IV ONE (11:53)
[2017-03-27] MEDS ORDERED: ATORVASTATIN 80 MG TAB PO STA (11:53)
[2017-03-27] MEDS ORDERED: ASPIRIN 325 MG TAB PO STA (11:53)
[2017-03-27] MEDS ORDERED: NITROGLYCERIN SL TABS 0.4 MG TAB SUBLINGUAL PRN (11:53)
[2017-03-27] MEDS: LORazepam 1 MG TAB PO PRN ×2 (12:27→20:13)
--- NOTE | 2017-03-27 12:31 | ECHOS ---
STRESS ECHOCARDIOGRAM DATE OF SERVICE: 03/27/2017 INDICATIONS: Chest pain. MEDICATIONS: BASELINE HEART RATE: 86 BASELINE BLOOD PRESSURE: 137/71 MAXIMUM HEART RATE: 152 MAXIMUM BLOOD PRESSURE: 190/74 85% MPHR: 137 100% MPHR: 161 METS: 4.4 MAXIMUM STAGE REACHED: I TOTAL EXERCISE TIME: 3 minutes CLINICAL INFORMATION: Baseline rhythm is sinus mechanism, rate of 86, normal axis and intervals, minor nonspecific ST-T wave changes. Baseline blood pressure 137/71 mmHg. Patient exercised on Stefan protocol for 3 minutes reaching peak rate of 152 beats per minute, which is equal to 94% maximum predicted heart rate. Peak blood pressure 190/74 mmHg. Test was terminated secondary to fatigue. There was no chest pain. Electrocardiograph monitoring revealed no evidence of diagnostic ischemic ST deviation. Baseline echocardiogram revealed normal wall motion. At peak exercise, there was mild hypokinesis involving the anterolateral wall that resolved in recovery. CONCLUSION: 1. Poor exercise tolerance with normal electrocardiograph response to exercise. 2. Abnormal stress echocardiogram with evidence of stress-induced ischemia involving the anteroapical lateral wall. MMODL / IJN: [id number] /
[2017-03-27] MEDS ORDERED: TEMAZEPAM 15 MG CAP PO PRN (12:33)
--- NOTE | 2017-03-27 13:41 | P.PN ---
Subjective Progress Note Date: 03/27/17 This is a 61-year-old female one of Dr. French with a previous medical history significant for central pontine myelinosis(CPM) , myoclonic jerking, tremors, hypothyroidism, start arthritis, chronic tobacco use and dependence, patient was initially diagnosed with severe endometriosis for which she underwent total abdominal hysterectomy with bilateral salpingo-oophorectomy after surgery she hemorrhaged and she ended up having significant hypotension requiring IV fluid resuscitation and few years later she was diagnosed with central pontine melanosis at [facility] she was disabled because of that, patient also was diagnosed with anxiety and depressive disorder along with bipolar disorder, patient was in her usual state of health about today in the morning at 2:00 in the morning woke up in the morning complaining of left- sided chest heaviness radiating to the neck and left shoulder down to the left arm with increased numbness patient felt like a choking episode that traveled through her body was significant heaviness in her chest, [facility] that showed normal sinus rhythm with nonspecific T-wave changes, patient did have a bit of ST depression in V2 and V3, patient did receive nitroglycerin in the ER and made her pain goes away patient was started on aspirin 325 mg orally once every day also she was started on heparin drip and she was placed on nitroglycerin paste and she was admitted to the hospital cardiology consultation was obtained. 03/27: Patient has been seen by Dr. Tsang for chest pain that was probably noncardiac. Heparin drip and nitroglycerin stopped and stress echocardiogram was ordered. Stress test reveals poor exercise tolerance with normal electrocardiographic response to exercise. Abnormal stress echocardiogram with evidence of stress-induced ischemia involving the anterior apical lateral wall. Patient is scheduled for heart catheterization tomorrow. Echocardiogram reveals EF of greater than 55%, mild mitral regurgitation, mild tricuspid regurgitation. Patient is asking for sleeping medication and Restoril ordered. She is very anxious and Ativan has been started. Objective - Vital Signs Vital signs: Vital Signs Temp 98.7 F 03/27/17 07:46 Pulse 69 03/27/17 12:00 Resp 16 03/27/17 12:00 BP 116/70 03/27/17 07:46 Pulse Ox 97 03/27/17 07:48 Intake & Output 0203/27/17 03/27/17 18:59 06:59 18:59 Intake Total 240 133.2 Balance 240 133.2 Weight 76.4 kg Intake: Intake, IV Titration 133.2 Amount Heparin Sod,Pork in 0.45% 133.2 NaCl 25,000 unit In 0.45 % NaCl 1 500ml.bag @ 12 UNITS/KG/HR 18.5 mls/hr IV .Q24H MADDY Rx#: [id number] Oral 240 Other: Voiding Method Toilet # Voids 1 2 - Exam General appearance: no acute distress - EENT Eyes: anicteric sclerae, EOMI, PERRLA, no ptosis, no scleral icterus, normal appearance ENT: hearing grossly normal, NA/AT, normal oropharynx, no thrush Ears: bilateral: normal - Neck Neck: no lymphadenopathy, normal ROM, no rigidity, no stridor, no thyromegaly Carotids: bilateral: upstroke normal Thyroid: bilateral: normal size - Respiratory Respiratory: bilateral: diminished, negative: dullness, rales, rhonchi, wheezing , prolonged expiration, prolonged inspiration - Cardiovascular Rhythm: regular Heart sounds: normal: S1, S2 Abnormal Heart Sounds: no systolic murmur, no S3 Gallop, no S4 Gallop, no click - Gastrointestinal General gastrointestinal: normal bowel sounds, soft, no splenomegaly, no tenderness, no umbilical hernia, no ventral hernia - Integumentary Integumentary: normal, normal turgor - Neurologic Neurologic: CNII-XII intact - Musculoskeletal Musculoskeletal: strength equal bilaterally - Psychiatric Psychiatric: A&O x's 3, appropriate affect, intact judgment & insight - Labs CBC & Chem 7: 03/26/17 09:52 03/26/17 09:52 Labs: Abnormal Lab Results - Last 24 Hours (Table) 03/26/17 03/27/17 03/27/17 Range/Units 21:22 04:34 04:34 APTT 39.5 H 47.3 H (22.0-30.0) sec Cholesterol 212 H (<200) mg/dL LDL Cholesterol, Calc 141 H (0-99) mg/dL Assessment and Plan Plan: 1. Chest pain, patient will be admitted as observation, cardiac enzymes and will check stress test in AM, will continue with ASA 325 mg orally daily and Heparin drip for now. We will continue with nitroglycerin paste 1 inch every 6 hours. 2. Hypothyroidism. will continue with synthroid 25 mcg orally daily. 3. Bipolar disorder. stable. Continue patient on Ativan 1 mg orally 3 times every day. 4. Anxiety. currently on Ativan 1 mg orally tid. 5. History of CVA. Continue aspirin 325 mg orally once every day. 6. History of central pontine myelinosis with myoclonic jerks and tremor. Continue Mysoline 50 mg orally once every day. 7. DVT prophylaxis . continue with heparin drip for now. 8. GI prophylaxis. will continue with PPI. 9. OBV. Discharge plan: Return home Impression and plan of care have been directed as dictated by the signing physician. Venus Uriostegui nurse practitioner acting as scribe for signing physician.
[2017-03-27] MEDS: SODIUM CHLORIDE 0.9% 1,000 ML IV SCH (16:59)
[2017-03-27] MEDS: MULTIVITAMINS, THERA 1 EACH TAB PO SCH (20:21)
[2017-03-27] MEDS: PRIMIDONE 50 MG TAB PO SCH (20:21)
[2017-03-27] MEDS: CALCIUM CARB-VIT D 500MG-200UN 1 EACH TAB PO SCH (20:21)
[2017-03-27] MEDS: ZINC SULFATE 220 MG CAP PO SCH (20:53)
[2017-03-28] MEDS: LORazepam 1 MG TAB PO PRN (06:00)
[2017-03-28] MEDS ORDERED: LIDOCAINE 2% INJ 20 MG/ML (20 ML MDV) ONE (07:21)
[2017-03-28] MEDS ORDERED: diphenhydrAMINE 50 MG/ML 1 ML VIAL ONE (07:21)
[2017-03-28] MEDS ORDERED: fentaNYL (PF) 50 MCG/ML 2 ML AMP ONE (07:22)
[2017-03-28] MEDS ORDERED: HEPARIN SODIUM 1,000 UN/ML (10ML VL) ONE (07:22)
[2017-03-28] MEDS ORDERED: VERAPAMIL 2.5 MG/ML 2 ML AMP ONE (07:22)
[2017-03-28] MEDS ORDERED: IV FLUID CONTINUATION 1,000 ML IV ONE (07:27)
[2017-03-28] MEDS ORDERED: diphenhydrAMINE 50 MG/ML 1 ML VIAL IVP ONE (07:35)
[2017-03-28] MEDS ORDERED: MIDAZOLAM 2 MG/2 ML VIAL ONE (07:36)
[2017-03-28] MEDS: MIDAZOLAM 2 MG/2 ML VIAL IV ONE ×2 (07:38→07:47)
[2017-03-28] MEDS ORDERED: fentaNYL (PF) 50 MCG/ML 2 ML AMP IV ONE (07:38)
[2017-03-28] MEDS ORDERED: LIDOCAINE 2% INJ 20 MG/ML SQ ONE (07:42)
[2017-03-28] MEDS ORDERED: VERAPAMIL SYRINGE (5 MG/10 ML) INTRAARTER ONE (07:46)
[2017-03-28] MEDS ORDERED: IOHEXOL 350 MG/ML 125ML BOTTLE INJ ONE (08:02)
[2017-03-28 08:12] LABS: Anion Gap 10 mmol/L; Blood Urea Nitrogen 7 mg/dL (7-17); Calcium 9.1 mg/dL (8.4-10.2); Carbon Dioxide 22 mmol/L (22-30); Chloride 110 mmol/L (98-107); Glucose 100 mg/dL (74-99); Potassium 3.7 mmol/L (3.5-5.1); Sodium 142 mmol/L (137-145)
[2017-03-28] MEDS ORDERED: RX INFO: IV CONTRAST WAS GIVEN 1 EACH MISC MISCELLANE PRN (08:17)
[2017-03-28] MEDS ORDERED: ASPIRIN 81 MG PO SCH (08:19)
[2017-03-28] MEDS ORDERED: SODIUM CHLORIDE 0.9% 1,000 ML IV SCH (08:30)
--- NOTE | 2017-03-28 08:56 | CC ---
CARDIAC CATHETERIZATION REPORT Mrs. Anderson is a 61-year-old female who presented with symptoms of choking sensation and chest discomfort. She had no evidence of acute myocardial infarction, but because of her symptoms, underwent a stress echocardiogram which raised possibility of anteroseptal lateral ischemia. In view of that, recommendation was made regarding cardiac catheterization. The procedure as well as risks and complications were discussed with the patient who is in full understanding and agreement. PROCEDURE: Patient was brought to photofinishing laboratory worker in a fasting semi-sedated state after receiving fentanyl and Benadryl and achieving moderate conscious sedated state. Using Xylocaine anesthesia and Seldinger technique, a 6-Nepali sheath was introduced in the right radial artery. Selective right and left coronary angiography performed using the 5- Nepali 3.5 bend right and left Justice catheter. Multiple views of the coronary artery including hemiaxial views were obtained. Following that 5-Nepali tight pigtail catheter was introduced in the left ventricle and a 30-degree HAMMOND view of the left ventricle was obtained. Following that, catheter and sheaths were removed. Hemostasis was obtained with deployment of a TR band. There was no immediate complication. The patient is returned to her room in stable condition. Of note, the patient received 4000 units of intravenous heparin as well as intra-arterial verapamil. FINDINGS: LEFT MAIN: This is a short size vessel bifurcating in the left circumflex and left anterior descending artery. Left main coronary artery has no evidence of high-grade stenosis. LEFT ANTERIOR DESCENDING ARTERY: This is a large-sized vessel reaching to the apex with a wraparound apex segment giving rise to a large diagonal branch in the proximal segment. Left anterior descending artery proximally has a 10% to 20% plaque. The rest of the vessel has no high-grade stenosis. LEFT CIRCUMFLEX: This is a nondominant vessel, moderate in caliber giving rise to a moderate-size obtuse marginal branch. The left circumflex as well as branches have no evidence of obstructive coronary artery disease. RIGHT CORONARY ARTERY: This is a large dominant vessel bifurcating in PDA and posterolateral segment and branches. The right coronary artery and its branches have no evidence of obstructive coronary artery disease. LEFT VENTRICULOGRAM: Left ventriculogram is performed in 30-degree HAMMOND view and revealed normal left ventricular size and systolic function. There was evidence of arrhythmia induced mitral regurgitation. HEMODYNAMICS: There was no gradient across the aortic valve. The left ventricle end- diastolic pressure was 8 to 10 mmHg. CONCLUSION: 1. Minimal plaque in the proximal left anterior descending artery. 2. Normal left ventricular size and systolic function. RECOMMENDATION: In view of finding anatomy, I recommend continuing medical therapy with aggressive coronary risk modification that has been initiated. Those findings and recommendation were discussed with the patient and her family and are in full understanding and agreement. Duration of procedure is 17 minutes. MMLUCY / KENDELLN: [id number] /
[2017-03-28] MEDS ORDERED: ATORVASTATIN 20 MG TAB PO SCH (09:00)
--- NOTE | 2017-03-28 09:02 | LTR ---
March 28, 2017 Re: Crystal Anderson Dear Dr. French: I had the opportunity to perform cardiac catheterization on Mrs. Anderson at [facility] on the 28 of March and a full copy of the procedure note will be forwarded to you. In brief, she was found to have mild intimal disease without any evidence of high-grade stenosis. Based on those finding, I have recommended to continue medical therapy with aggressive coronary risk modification that has been initiated. Thank you again for allowing me the opportunity to participate in her care. Please feel free to call for any questions. Sincerely yours, MD VITO SinghL / KENDELLN: [id number] /
[2017-03-28] MEDS: LEVOTHYROXINE 25 MCG TAB PO SCH (11:20)
--- NOTE | 2017-03-28 15:03 | P.DS ---
Providers Date of admission: 03/26/17 15:00 Expected date of discharge: 03/28/17 Attending physician: Emmy Taylor Consults: 03/26/17 15:00 Consult Physician Urgent Consulting Provider: Razia Leblanc Consult Reason/Comments: Chest pain, unstable angina Do you want consulting provider notified?: Yes Primary care physician: [facility] Course: This is a 61-year-old female one of Dr. rFench with a previous medical history significant for central pontine myelinosis(CPM) , myoclonic jerking, tremors, hypothyroidism, start arthritis, chronic tobacco use and dependence, patient was initially diagnosed with severe endometriosis for which she underwent total abdominal hysterectomy with bilateral salpingo-oophorectomy after surgery she hemorrhaged and she ended up having significant hypotension requiring IV fluid resuscitation and few years later she was diagnosed with central pontine melanosis at [facility] she was disabled because of that, patient also was diagnosed with anxiety and depressive disorder along with bipolar disorder, patient was in her usual state of health about today in the morning at 2:00 in the morning woke up in the morning complaining of left- sided chest heaviness radiating to the neck and left shoulder down to the left arm with increased numbness patient felt like a choking episode that traveled through her body was significant heaviness in her chest, [facility] that showed normal sinus rhythm with nonspecific T-wave changes, patient did have a bit of ST depression in V2 and V3, patient did receive nitroglycerin in the ER and made her pain goes away patient was started on aspirin 325 mg orally once every day also she was started on heparin drip and she was placed on nitroglycerin paste and she was admitted to the hospital cardiology consultation was obtained. 03/27: Patient has been seen by Dr. Tsang for chest pain that was probably noncardiac. Heparin drip and nitroglycerin stopped and stress echocardiogram was ordered. Stress test reveals poor exercise tolerance with normal electrocardiographic response to exercise. Abnormal stress echocardiogram with evidence of stress-induced ischemia involving the anterior apical lateral wall. Patient is scheduled for heart catheterization tomorrow. Echocardiogram reveals EF of greater than 55%, mild mitral regurgitation, mild tricuspid regurgitation. Patient is asking for sleeping medication and Restoril ordered. She is very anxious and Ativan has been started. 03/28: Patient underwent heart catheterization with Dr. Tsang that showed minimal plaque in the proximal LAD. Normal left nuclear size and systolic function. Recommendations for medical therapy with aggressive coronary risk factor modification. Patient is been started on baby aspirin and Lipitor. She will be discharged home today in stable condition. Discharge diagnoses: 1. Chest pain non cardiac 2. Hypothyroidism. 3. Bipolar disorder. stable. 4. Generalized anxiety disorder. 5. History of CVA. 6. History of central pontine myelinosis with myoclonic jerks and tremor. Discharge plan: Return home Impression and plan of care have been directed as dictated by the signing physician. Venus Uriostegui nurse practitioner acting as scribe for signing physician. Patient Condition at Discharge: Good Plan - Discharge Summary Discharge Rx Participant: Yes New Discharge Prescriptions: New Atorvastatin [Lipitor] 20 mg PO HS #30 tab Continue Primidone [Mysoline] 50 mg PO HS LORazepam [Ativan] 2 mg PO TID PRN PRN Reason: Anxiety Levothyroxine Sodium [Synthroid] 25 mcg PO DAILY Aspirin 325 mg PO HS Zinc 50 mg PO HS Calcium Carb-Vit D 500Mg-200Un [Oscal 500+D] 1 tab PO HS Multivitamins, Thera [Multivitamin (formulary)] 1 tab PO HS oxyCODONE HCL 10 mg PO HS PRN PRN Reason: Pain Discharge Medication List LORazepam [Ativan] 2 mg PO TID PRN 08/11/13 [History] Levothyroxine Sodium [Synthroid] 25 mcg PO DAILY 08/11/13 [History] Primidone [Mysoline] 50 mg PO HS 08/11/13 [History] Aspirin 325 mg PO HS 01/31/15 [History] Calcium Carb-Vit D 500Mg-200Un [Oscal 500+D] 1 tab PO HS 09/02/15 [History] Zinc 50 mg PO HS 09/02/15 [History] Multivitamins, Thera [Multivitamin (formulary)] 1 tab PO HS 08/21/16 [History] oxyCODONE HCL 10 mg PO HS PRN 02/26/17 [History] Atorvastatin [Lipitor] 20 mg PO HS #30 tab 03/28/17 [Rx] Follow up Appointment(s)/Referral(s): Zoe Tsang MD [STAFF PHYSICIAN] - 1 Week Emeka French DO [Primary Care Provider] - 1-2 days
[2017-03-28 15:53] VITALS: BP 108/61; PULSE 78; RESP 18; TEMP 98
== END 2017-03-28 15:47 | disposition home or self-care (01) | DRG 287 ==
LOC: EC 09:27 → 3OBS 15:00 → OBSVTOIN 03-27 14:44
PROVIDERS: ADMIT Internal Medicine; ATTEND Internal Medicine
PROC: B2111ZZ Fluoroscopy of Multiple Coronary Arteries using Low Osmolar Contrast (ICD-10-PCS; 2017-03-28)
PROC: B2151ZZ Fluoroscopy of Left Heart using Low Osmolar Contrast (ICD-10-PCS; 2017-03-28)
PROC: 4A023N7 Measurement of Cardiac Sampling and Pressure, Left Heart, Percutaneous Approach (ICD-10-PCS; principal; 2017-03-28 07:20)
DX: R07.89 Other chest pain (principal); Z86.74 Personal history of sudden cardiac arrest; G25.3 Myoclonus; G37.2 Central pontine myelinolysis; E03.9 Hypothyroidism, unspecified; E78.5 Hyperlipidemia, unspecified; F31.9 Bipolar disorder, unspecified; I08.1 Rheumatic disorders of both mitral and tricuspid valves; M19.90 Unspecified osteoarthritis, unspecified site; F41.1 Generalized anxiety disorder; Z86.73 Personal history of transient ischemic attack (TIA), and cerebral infarction without residual deficits; Z79.82 Long term (current) use of aspirin; Z88.6 Allergy status to analgesic agent; Z88.8 Allergy status to other drugs, medicaments and biological substances; Z79.899 Other long term (current) drug therapy; Z79.891 Long term (current) use of opiate analgesic; Z82.49 Family history of ischemic heart disease and other diseases of the circulatory system; Z80.1 Family history of malignant neoplasm of trachea, bronchus and lung; Z83.3 Family history of diabetes mellitus; Z81.8 Family history of other mental and behavioral disorders; Z87.891 Personal history of nicotine dependence; Z90.49 Acquired absence of other specified parts of digestive tract; Z90.710 Acquired absence of both cervix and uterus
CPT/HCPCS: 36415; 71046; 80048; 80053; 80061; 82150; 82550; 82553; 83690; 83735; 83880; 84484; 85025; 85379; 85610; 85730; 87324; 93005; 93017; 93306; 93350; 93458; 94760; 96361; 96374; 96375; 99291

== ENCOUNTER 2017-06-20 18:34 | Emergency (ER) | payer MEDICARE ==
--- NOTE | 2017-06-20 19:48 | ED ---
Skin/Abscess/FB HPI - General Chief complaint: Skin/Abscess/Foreign Body Stated complaint: POSS SHINGLES Time Seen by Provider: 06/20/17 19:23 Source: patient Mode of arrival: ambulatory Limitations: no limitations - History of Present Illness Initial comments: 61-year-old female patient presents to the emergency department today for complaints of painful rash to the left anterior thigh 3 days. Patient states that she noticed a cluster of lesions to the anterior thigh. Patient states that she has had chickenpox before was concern for shingles. Patient states that the lesions are painful, like "nerve ending pain". Patient denies any fevers or chills. Denies any drainage from the lesions. Denies any itching. Denies any exposure to new substances including soaps, lotions, foods, medications, or clothing. Patient denies any history of similar symptoms. Denies any other areas of rash. Patient has not had shingles vaccination. Patient denies any recent shortness breath, chest pain, abdominal pain, nausea, vomiting, diarrhea, constipation, back pain, numbness, tingling, dizziness, weakness, headache, visual changes, or any other complaints. - Related Data Home Medications Medication Instructions Recorded Confirmed Levothyroxine Sodium [Synthroid] 25 mcg PO HS 08/11/13 06/20/17 Primidone [Mysoline] 50 mg PO HS 08/11/13 06/20/17 Aspirin 325 mg PO HS 01/31/15 06/20/17 Calcium Carb-Vit D 500Mg-200Un 1 tab PO HS 09/02/15 06/20/17 [Oscal 500+D] Zinc 50 mg PO HS 09/02/15 06/20/17 Multivitamins, Thera [Multivitamin 1 tab PO HS 08/21/16 06/20/17 (formulary)] oxyCODONE HCL 10 mg PO HS PRN 02/26/17 06/20/17 Azo Uti 1 tab PO TID PRN 06/20/17 06/20/17 LORazepam [Ativan] 1 mg PO HS 06/20/17 06/20/17 Lidocaine 2% Gel [Xylocaine Jelly 1 applic TOPICAL Q6H PRN 06/20/17 06/20/17 2%] Previous Rx's Medication Instructions Recorded valACYclovir HCL [Valacyclovir] 1,000 mg PO Q8H #21 tab 06/20/17 Allergies Allergy/AdvReac Type Severity Reaction Status Date / Time acetaminophen [From Vicodin] Allergy Unknown Verified 06/20/17 19:56 codeine Allergy Unknown Verified 06/20/17 19:56 hydrocodone bitartrate Allergy Unknown Verified 06/20/17 19:56 [From Vicodin] ibuprofen [From Motrin] Allergy Unknown Verified 06/20/17 19:56 ANTIBIOTICS- ALL OF THEM Allergy Unknown Uncoded 06/20/17 19:09 Review of Systems ROS Statement: Those systems with pertinent positive or pertinent negative responses have been documented in the HPI. ROS Other: All systems not noted in ROS Statement are negative. Past Medical History Past Medical History: Coronary Artery Disease (CAD), Chest Pain / Angina, CVA/ TIA, Fibromyalgia, GERD/Reflux, Musculoskeletal Disorder, Neurologic Disorder, Osteoarthritis (OA), Pneumonia, Seizure Disorder, Thyroid Disorder Additional Past Medical History / Comment(s): central pontinemyelinilysis-(cmp) , myoclonic jerks, tremors, pt stated 5 cva-lt sided weakness, occ trouble swallowing,anxiety, depression, bipolar disorder, H/O cardiac arrest at 12 year old post Appendectomy.falls, tinnitus,bronchitis, scoliosis, endometerois, uterine fibroids, pout in paast, uti, sinus problems, fx to rt ankle,rtand lt wrist, lt elbow History of Any Multi-Drug Resistant Organisms: None Reported Past Surgical History: Appendectomy, Hysterectomy Additional Past Surgical History / Comment(s): 2 uterine suspension then Total abdominal hysterectomy and bilateral sopping oophorectomy, appendectomy at the age of 12 followed by a cardiac arrest, lasik eye sx sophia, d&c,bronchoscopy x3, lt hand sx. Past Anesthesia/Blood Transfusion Reactions: No Reported Reaction Additional Past Anesthesia/Blood Transfusion Reaction / Comment(s): blood transfusions-no reaction Past Psychological History: Anxiety, Bipolar, Depression Smoking Status: Former smoker - Past Family History Mother Family Medical History: Diabetes Mellitus Father Family Medical History: Cancer Brother(s) Family Medical History: Coronary Artery Disease (CAD) Sister(s) Family Medical History: No Reported History Daughter(s) Family Medical History: No Reported History General Exam Limitations: no limitations General appearance: alert, in no apparent distress, other Eye exam: Present: normal appearance (This is a well-developed, well-nourished adult female patient in no acute distress. Vital signs upon presentation are temperature 97.7F, pulse 76, respirations 16, blood pressure 107/59, pulse ox 97% on room air.), PERRL, EOMI. Absent: scleral icterus, conjunctival injection , periorbital swelling ENT exam: Present: normal exam, normal oropharynx, mucous membranes moist Respiratory exam: Present: normal lung sounds bilaterally. Absent: respiratory distress, wheezes, rales, rhonchi, stridor Cardiovascular Exam: Present: regular rate, normal rhythm, normal heart sounds. Absent: systolic murmur, diastolic murmur, rubs, gallop, clicks Neurological exam: Present: alert, oriented X3, CN II-XII intact Psychiatric exam: Present: normal affect, normal mood Skin exam: Present: warm, dry, intact, normal color, rash (Cluster of multiple erythematous pules to the left anterior thigh. No surrounding erythema. No other areas of rash. Lesions are non-petechial. Possibly early vesicles. Seem consistent with shingles infection.) Course Vital Signs 06/20/17 06/20/17 19:05 20:14 Temperature 97.7 F 98.7 F Pulse Rate 76 74 Respiratory 16 18 Rate Blood Pressure 107/59 102/60 O2 Sat by Pulse 97 96 Oximetry Medical Decision Making - Medical Decision Making 61-year-old female patient presented to the emergency department today for evaluation of rash to the left anterior thigh. Physical examination did reveal she most type rash. A small cluster of lesions with no surrounding erythema. No drainage at this time. Patient will be started on valacyclovir and instructed to follow-up with her primary care physician for recheck. Patient does take pain medication at home. She is instructed to continue taking his as directed. Return parameters discussed in detail. She verbalizes understanding and agrees with this plan. She also asked for the name of a urologist for chronic UTIs. Denies current symptoms. A name has been provided. - Radiology Data Radiology results: report reviewed Disposition Clinical Impression: Shingles Disposition: HOME SELF-CARE Condition: Good Instructions: Shingles (ED) Additional Instructions: Apply cool compresses over the rash to assist with pain symptoms. Take medications as directed. Follow-up with your primary care physician for recheck in 1-2 days. Return here immediately for any new, worsening, or concerning symptoms. Prescriptions: valACYclovir HCL [Valacyclovir] 1,000 mg PO Q8H #21 tab Is patient prescribed a controlled substance at d/c from ED?: No Referrals: Emeka French DO [Primary Care Provider] - 1-2 days Killian Owusu MD [STAFF PHYSICIAN] - 1-2 days Time of Disposition: 19:48
[2017-06-20 20:15] VITALS: BP 102/60; PULSE 74; RESP 18; TEMP 98.7
== END 2017-06-20 20:15 | disposition home or self-care (01) ==
LOC: EC 18:34
DX: B02.9 Zoster without complications (principal); E07.9 Disorder of thyroid, unspecified; G40.909 Epilepsy, unspecified, not intractable, without status epilepticus; M19.90 Unspecified osteoarthritis, unspecified site; F41.9 Anxiety disorder, unspecified; Z87.891 Personal history of nicotine dependence; Z79.82 Long term (current) use of aspirin; Z79.899 Other long term (current) drug therapy; Z88.1 Allergy status to other antibiotic agents; Z88.5 Allergy status to narcotic agent; Z88.6 Allergy status to analgesic agent; Z88.8 Allergy status to other drugs, medicaments and biological substances; Z86.19 Personal history of other infectious and parasitic diseases
CPT/HCPCS: 99282

== ENCOUNTER 2017-07-24 22:00 | Emergency (ER) | payer MEDICARE ==
[2017-07-24 22:11] VITALS: RESP 18; TEMP 98
--- NOTE | 2017-07-24 22:32 | ED ---
Female Urogenital HPI - General Chief complaint: Urogenital Stated complaint: Abd Pain Time Seen by Provider: 07/24/17 22:15 Source: patient Mode of arrival: ambulatory Limitations: no limitations - History of Present Illness Initial comments: This patient is a 61-year-old woman who presents with complaint that she believes she has urinary tract infection. She states the symptoms have been going on about 3 weeks now. Started with complaint of dysuria and frequency, and now she has also developed suprapubic pain. She states that she constantly it feels just urinate area she saw her physician but states she was unable to take any medication because she was having a shingles outbreak (left thigh) at the time and that needs to be dealt with first. MD Complaint: dysuria, pelvic pain Onset/Timin -: week(s) Location: suprapubic Radiation: R flank Severity: severe Quality: burning, aching Consistency: constant Improves with: none Worsens with: urination - Related Data Home Medications Medication Instructions Recorded Confirmed Levothyroxine Sodium [Synthroid] 25 mcg PO HS 08/11/13 07/24/17 Primidone [Mysoline] 50 mg PO HS 08/11/13 07/24/17 Aspirin 325 mg PO HS 01/31/15 07/24/17 Zinc 50 mg PO HS 09/02/15 07/24/17 Multivitamins, Thera [Multivitamin 1 tab PO HS 08/21/16 07/24/17 (formulary)] LORazepam [Ativan] 1 mg PO HS 06/20/17 07/24/17 Lidocaine 2% Gel [Xylocaine Jelly 1 applic TOPICAL Q6H PRN 06/20/17 07/24/17 2%] Calcium Carbonate [Calcium] 600 mg PO HS 07/24/17 07/24/17 diphenhydrAMINE HCL [Benadryl] 25 mg PO HS 07/24/17 07/24/17 Previous Rx's Medication Instructions Recorded Ciprofloxacin HCl [Cipro] 500 mg PO Q12HR #14 tablet 07/25/17 Hyoscyamine Sulfate [Levbid] 0.375 mg PO BID #10 tab.er.12h 07/25/17 Phenazopyridine [Pyridium] 100 mg PO TID #6 tablet 07/25/17 Allergies Allergy/AdvReac Type Severity Reaction Status Date / Time acetaminophen [From Vicodin] Allergy Unknown Verified 07/24/17 22:28 codeine Allergy Unknown Verified 07/24/17 22:28 hydrocodone bitartrate Allergy Unknown Verified 07/24/17 22:28 [From Vicodin] ANTIBIOTICS- ALL OF THEM Allergy Unknown Uncoded 07/24/17 22:11 Review of Systems ROS Statement: Those systems with pertinent positive or pertinent negative responses have been documented in the HPI. ROS Other: All systems not noted in ROS Statement are negative. Constitutional: Denies: fever, chills, weakness Respiratory: Denies: cough, dyspnea Cardiovascular: Denies: chest pain, syncope Gastrointestinal: Reports: as per HPI, abdominal pain. Denies: nausea, vomiting , diarrhea, constipation Genitourinary: Reports: dysuria, frequency. Denies: hematuria Musculoskeletal: Denies: back pain Skin: Denies: rash Neurological: Denies: headache, weakness Past Medical History Past Medical History: Coronary Artery Disease (CAD), Chest Pain / Angina, CVA/ TIA, Fibromyalgia, GERD/Reflux, Musculoskeletal Disorder, Neurologic Disorder, Osteoarthritis (OA), Pneumonia, Seizure Disorder, Thyroid Disorder Additional Past Medical History / Comment(s): central pontinemyelinilysis-(cmp) , myoclonic jerks, tremors, pt stated 5 cva-lt sided weakness, occ trouble swallowing,anxiety, depression, bipolar disorder, H/O cardiac arrest at 12 year old post Appendectomy.falls, tinnitus,bronchitis, scoliosis, endometerois, uterine fibroids, pout in paast, uti, sinus problems, fx to rt ankle,rtand lt wrist, lt elbow History of Any Multi-Drug Resistant Organisms: None Reported Past Surgical History: Appendectomy, Hysterectomy Additional Past Surgical History / Comment(s): 2 uterine suspension then Total abdominal hysterectomy and bilateral sopping oophorectomy, appendectomy at the age of 12 followed by a cardiac arrest, lasik eye sx sophia, d&c,bronchoscopy x3, lt hand sx. Past Anesthesia/Blood Transfusion Reactions: No Reported Reaction Additional Past Anesthesia/Blood Transfusion Reaction / Comment(s): blood transfusions-no reaction Past Psychological History: Anxiety, Bipolar, Depression Smoking Status: Former smoker Past Alcohol Use History: None Reported Past Drug Use History: Marijuana - Past Family History Mother Family Medical History: Diabetes Mellitus Father Family Medical History: Cancer Brother(s) Family Medical History: Coronary Artery Disease (CAD) Sister(s) Family Medical History: No Reported History Daughter(s) Family Medical History: No Reported History General Exam Limitations: no limitations General appearance: alert, in no apparent distress Head exam: Present: atraumatic, normocephalic Eye exam: Present: normal appearance Respiratory exam: Present: normal lung sounds bilaterally. Absent: respiratory distress, wheezes, rales, rhonchi, stridor Cardiovascular Exam: Present: regular rate, normal rhythm, normal heart sounds. Absent: systolic murmur, diastolic murmur, rubs, gallop GI/Abdominal exam: Present: soft, tenderness (Mild suprapubic tenderness without rebound or guarding). Absent: distended, guarding, rebound, rigid, mass , pulsatile mass, hernia Extremities exam: Present: normal inspection, normal capillary refill. Absent: pedal edema, calf tenderness Back exam: Present: normal inspection. Absent: CVA tenderness (R), CVA tenderness (L) Skin exam: Present: warm, dry, intact, normal color. Absent: rash Course Vital Signs 07/24/17 22:08 Temperature 98.0 F Pulse Rate 107 H Respiratory 18 Rate Blood Pressure 109/75 O2 Sat by Pulse 95 Oximetry Medical Decision Making - Lab Data Lab Results 07/24/17 Range/Units 22:40 Urine Color Yellow Urine Appearance Cloudy H (Clear) Urine pH 5.0 (5.0-8.0) Ur Specific [place] 1.018 (1.001-1.035) Urine Protein Trace H (Negative) Urine Glucose (UA) Negative (Negative) Urine Ketones Negative (Negative) Urine Blood Moderate H (Negative) Urine Nitrite Negative (Negative) Urine Bilirubin Negative (Negative) Urine Urobilinogen <2.0 (<2.0) mg/dL Ur Leukocyte Esterase Large H (Negative) Urine RBC 22 H (0-5) /hpf Urine WBC 164 H (0-5) /hpf Ur Squamous Epith Cells 2 (0-4) /hpf Hyaline Casts 3 H (0-2) /lpf Urine Mucus Rare H (None) /hpf Disposition Clinical Impression: Urinary tract infection Disposition: HOME SELF-CARE Condition: Good Instructions: Urinary Tract Infection in Women (ED) Prescriptions: Ciprofloxacin HCl [Cipro] 500 mg PO Q12HR #14 tablet Hyoscyamine Sulfate [Levbid] 0.375 mg PO BID #10 tab.er.12h Phenazopyridine [Pyridium] 100 mg PO TID #6 tablet Is patient prescribed a controlled substance at d/c from ED?: No Referrals: Emeka French DO [Primary Care Provider] - 1-2 days
[2017-07-24 23:01] LABS: Appearance,Urine Cloudy (Clear); Bilirubin,Urine Negative (Negative); Blood,Urine Moderate (Negative); Color,Urine Yellow; Glucose,Urine (UA) Negative (Negative); Hyaline Casts,Urine 3 /lpf (0-2); Ketones,Urine Negative (Negative); Leukocyte Esterase,Urine Large (Negative); Mucus,Urine Rare /hpf; Nitrite,Urine Negative (Negative); Protein,Urine Trace (Negative); RBC,Urine 22 /hpf (0-5); Specific Gravity,Urine 1.018 (1.001-1.035); Squamous Epithelial Cell,Urine 2 /hpf (0-4); Urobilinogen,Urine <2.0 mg/dL (<2.0); WBC,Urine 164 /hpf (0-5)
[2017-07-25] MEDS ORDERED: LEVOFLOXACIN 750 MG TAB PO STA (00:03)
[2017-07-25] MEDS ORDERED: PHENAZOPYRIDINE 100 MG TAB PO STA (00:03)
[2017-07-25] MEDS ORDERED: HYOSCYAMINE SULFATE 0.375 MG TAB.ER.12H PO STA (00:04)
[2017-07-25 00:33] VITALS: BP 134/83; PULSE 84
== END 2017-07-25 00:33 | disposition home or self-care (01) ==
LOC: EC 22:00
DX: N39.0 Urinary tract infection, site not specified (principal); G40.909 Epilepsy, unspecified, not intractable, without status epilepticus; E07.9 Disorder of thyroid, unspecified; F41.9 Anxiety disorder, unspecified; F31.9 Bipolar disorder, unspecified; Z86.73 Personal history of transient ischemic attack (TIA), and cerebral infarction without residual deficits; Z87.891 Personal history of nicotine dependence; Z90.49 Acquired absence of other specified parts of digestive tract; Z90.710 Acquired absence of both cervix and uterus; Z90.722 Acquired absence of ovaries, bilateral; Z98.890 Other specified postprocedural states; Z79.82 Long term (current) use of aspirin; Z79.899 Other long term (current) drug therapy
CPT/HCPCS: 81001; 99284

== ENCOUNTER → 2017-08-29 | Outpatient (CLI) | payer MEDICARE ==
--- NOTE | 2017-08-30 08:21 | XR ---
EXAMINATION TYPE: XR abdomen 1V DATE OF EXAM: 08/29/2017 4:33 PM CLINICAL HISTORY: History of nephrolithiasis. Abdominal pain. TECHNIQUE: Single upright image of the abdomen is obtained. COMPARISON: 06/29/2010. FINDINGS: Numerous calcified granulomas are seen within the spleen. The liver is elongated extending to the tip of the iliac crest which could relate to hepatomegaly or normal variant Farhad's lobe. The re is a moderate amount retained colonic stool overlying the renal shadows and no definitive renal ca lculi are seen. No abnormal calcifications within the pelvis. Osseous structures appear intact. No di lated large or small bowel. Lung bases are clear. IMPRESSION: 1. No definitive renal calculi although a moderate amount of retained colonic stool overlies the annmarie l shadows and limits evaluation. 2. Benign granulomatous disease of the spleen. 3. Elongation of the hepatic parenchyma that may relate to normal variant or hepatomegaly.
== END | disposition home or self-care (01) ==
LOC: RADXRMAIN 16:16
PROVIDERS: ATTEND Family Medicine
DX: D73.89 Other diseases of spleen (principal); K76.89 Other specified diseases of liver
CPT/HCPCS: 74018

== ENCOUNTER → 2017-09-04 | Outpatient (CLI) | payer MEDICARE ==
--- NOTE | 2017-09-04 23:15 | CT ---
EXAMINATION TYPE: CT brain wo/w con DATE OF EXAM: 09/04/2017 COMPARISON: 11/01/2015 HISTORY: 62-year-old female Seizures during sleep. TECHNIQUE: Examination was done in axial plane before and after administration of intravenous contra st. 100 mL Isovue-300 was administered. Coronal and sagittal reconstructions performed. CT DLP: 2159.6 mGycm Automated exposure control for dose reduction was used. FINDINGS: There is no evidence of acute intracranial hemorrhage, acute ischemic changes, mass, mass-effect, or extra-axial fluid collection. There is no effacement of cerebral sulci or basal subarachnoid cister ns. There is no hydrocephalus. There is no midline shift. Givens-white matter distinction is preserv ed. There is moderate cerebral cortical volume loss. Dural venous sinuses are patent. No abnormal enhancing intracranial lesions. Trace mucosal thickening right ethmoid air cells. Mastoid air cells are well pneumatized. Orbits and globes are intact. Left nasal jose c bullosa incidentally noted. IMPRESSION: Moderate cerebral atrophy. No acute intracranial abnormality or enhancing intracranial lesions seen.
== END | disposition home or self-care (01) ==
LOC: RADCTMAIN 18:05
PROVIDERS: ATTEND Family Medicine
DX: G31.9 Degenerative disease of nervous system, unspecified (principal)
CPT/HCPCS: 70470; Q9967

== ENCOUNTER → 2017-11-08 | Outpatient (CLI) | payer MEDICARE ==
--- NOTE | 2017-11-09 07:48 | CT ---
EXAMINATION TYPE: CT abdomen pelvis wo/w con DATE OF EXAM: 11/08/2017 COMPARISON: October 11, 2011 HISTORY: Hematuria and frequent UTIs CT DLP: 2050 mGycm CONTRAST: CT scan of the abdomen and pelvis is performed with Oral Contrast and without and with IV Contrast, p atient injected with 100 mL of Isovue 300. FINDINGS: LUNG BASES-: No visible nodule. No infiltrate. LIVER/GB: No calcified gallstones. No space occupying hepatic lesion. Biliary tree is of normal ca liber. Hepatic granuloma noted. PANCREAS: No inflammation. No distinct mass. SPLEEN: No splenic enlargement. No lesion seen. Splenic granulomas identified. ADRENALS: No nodule. No thickening. KIDNEYS/BLADDER: No hydronephrosis. No nephrolithiasis. No distinct renal mass. Urinary bladder g rossly unremarkable. BOWEL: Normal appendix. Normal bowel caliber. No inflammation. Possible gastroesophageal diverticul um. GENITAL ORGANS: No gross abnormality. LYMPH NODES: No greater than 1cm abdominal or pelvic lymph nodes are appreciated. AORTA: No significant abnormality. OSSEOUS STRUCTURES: No significant abnormality is seen. OTHER: No significant additional abnormality is seen. IMPRESSION: 1. No significant abnormality to account for the patient's symptoms of microscopic hematuria. 2. Evidence of remote granulomatous disease. 3. Suspect small gastroesophageal diverticulum.
== END | disposition home or self-care (01) ==
LOC: RADCTMAIN 16:01
PROVIDERS: ATTEND Urology
DX: R31.1 Benign essential microscopic hematuria (principal)
CPT/HCPCS: 74178; Q9967

== ENCOUNTER 2017-12-11 19:04 | Emergency (ER) | payer MEDICARE ==
[2017-12-11 19:11] LABS: Glucose,Whole Blood 118 mg/dL (75-99)
[2017-12-11 19:29] LABS: Basophils # (A) 0.1 k/uL (0-0.2); Basophils % (A) 1 %; Eosinophils # (A) 0.3 k/uL (0-0.7); Eosinophils % (A) 2 %; HCT 43.4 % (34.0-46.0); HGB 13.9 gm/dL (11.4-16.0); Lymphocytes # (A) 2.8 k/uL (1.0-4.8); Lymphocytes % (A) 28 %; MCH 28.6 pg (25.0-35.0); MCHC 32.1 g/dL (31.0-37.0); MCV 89.1 fL (80.0-100.0); Mean Platelet Volume 6.5; Monocytes # (A) 0.6 k/uL (0-1.0); Monocytes % (A) 6 %; Neutrophils # (A) 6.2 k/uL (1.3-7.7); Neutrophils % (A) 61 %; Platelet Count 311 k/uL (150-450); RBC 4.87 m/uL (3.80-5.40); RDW 14.1 % (11.5-15.5); WBC 10.1 k/uL (3.8-10.6)
--- NOTE | 2017-12-11 19:31 | ED ---
Neuro HPI - General Chief Complaint: Neuro Symptoms/Deficit Stated Complaint: Stroke Time Seen by Provider: 12/11/17 19:04 Source: patient, family, EMS, RN notes reviewed, old records reviewed Mode of arrival: EMS Limitations: no limitations - History of Present Illness Is the patient presenting with stroke symptoms?: Yes Initial Comments: This is a 8-year-old female history of CVA in the past with no residual deficit history of migraines history of seizure who apparently had the onset around 6: 30 this evening of sudden onset of left upper lower extremity any plegia some left facial asymmetry and difficulty with speech. Per her no seizure activity no trauma no other abnormalities he does state this happened right after taking a prednisone pill. No other history available no other modifying factors at this time she was brought in by EMS her glucose was then - Related Data Home Medications: Home Medications Medication Instructions Recorded Confirmed Levothyroxine Sodium [Synthroid] 25 mcg PO DAILY 08/11/13 12/11/17 Primidone [Mysoline] 50 mg PO BID 08/11/13 12/11/17 Aspirin 325 mg PO DAILY 01/31/15 12/11/17 Zinc 50 mg PO DAILY 09/02/15 12/11/17 Multivitamins, Thera [Multivitamin 1 tab PO DAILY 08/21/16 12/11/17 (formulary)] Doxycycline Hyclate [Vibramycin] 100 mg PO BID 12/11/17 12/11/17 LORazepam [Ativan] 2 mg PO TID PRN 12/11/17 12/11/17 predniSONE See Taper PO DAILY 12/11/17 12/11/17 traMADol HCL [Ultram] 50 mg PO TID PRN 12/11/17 12/11/17 Allergies/Adverse Reactions: Allergies Allergy/AdvReac Type Severity Reaction Status Date / Time acetaminophen [From Vicodin] Allergy Unknown Verified 12/11/17 19:27 codeine Allergy Unknown Verified 12/11/17 19:27 hydrocodone bitartrate Allergy Unknown Verified 12/11/17 19:27 [From Vicodin] ANTIBIOTICS- ALL OF THEM Allergy Unknown Uncoded 07/24/17 22:11 Review of Systems ROS Statement: Those systems with pertinent positive or pertinent negative responses have been documented in the HPI. ROS Other: All systems not noted in ROS Statement are negative. General Exam - General Exam Comments Initial Comments: This is a well-developed well-nourished awake alert female with difficulty with speech she is able to give a thumbs up with her right upper extremity in response to questions. Limitations: no limitations General appearance: alert, anxious Head exam: Present: other (Plan in the left nasolabial fold before head appears be spared) Eye exam: Present: normal appearance, PERRL, EOMI. Absent: scleral icterus, conjunctival injection, periorbital swelling ENT exam: Present: normal exam, mucous membranes moist Neck exam: Present: normal inspection, full ROM Respiratory exam: Present: normal lung sounds bilaterally. Absent: respiratory distress, wheezes, rales, rhonchi, stridor Cardiovascular Exam: Present: regular rate, normal rhythm, normal heart sounds. Absent: systolic murmur, diastolic murmur, rubs, gallop, clicks GI/Abdominal exam: Present: soft, normal bowel sounds. Absent: distended, tenderness, guarding, rebound, rigid Rectal exam: Present: deferred Extremities exam: Present: normal capillary refill, other ((Please her left upper and lower extremity). Absent: normal inspection, full ROM Back exam: Present: normal inspection Neurological exam: Present: alert, motor sensory deficit. Absent: CN II-XII intact Psychiatric exam: Present: normal affect, normal mood Skin exam: Present: warm, dry, intact, normal color. Absent: rash Stroke MDM - Lab Data Result diagrams: 12/11/17 19:15 12/11/17 19:15 Lab Results 12/11/17 12/11/17 12/11/17 Range/Units 19:09 19:15 19:15 WBC 10.1 (3.8-10.6) k/uL RBC 4.87 (3.80-5.40) m/uL Hgb 13.9 (11.4-16.0) gm/dL Hct 43.4 (34.0-46.0) % MCV 89.1 (80.0-100.0) fL MCH 28.6 (25.0-35.0) pg MCHC 32.1 (31.0-37.0) g/dL RDW 14.1 (11.5-15.5) % Plt Count 311 (150-450) k/uL Neutrophils % 61 % Lymphocytes % 28 % Monocytes % 6 % Eosinophils % 2 % Basophils % 1 % Neutrophils # 6.2 (1.3-7.7) k/uL Lymphocytes # 2.8 (1.0-4.8) k/uL Monocytes # 0.6 (0-1.0) k/uL Eosinophils # 0.3 (0-0.7) k/uL Basophils # 0.1 (0-0.2) k/uL PT (9.0-12.0) sec INR (<1.2) APTT (22.0-30.0) sec Sodium 137 (137-145) mmol/L Potassium 4.1 (3.5-5.1) mmol/L Chloride 106 (98-107) mmol/L Carbon Dioxide 23 (22-30) mmol/L Anion Gap 8 mmol/L BUN 14 (7-17) mg/dL Creatinine 0.65 (0.52-1.04) mg/dL Est GFR (CKD-EPI)AfAm >90 (>60 ml/min/1.73 sqM) Est GFR (CKD-EPI)NonAf >90 (>60 ml/min/1.73 sqM) Glucose 113 H (74-99) mg/dL POC Glucose (mg/dL) 118 H (75-99) mg/dL POC Glu Insurance Clerk ID Sherry Cano Calcium 9.4 (8.4-10.2) mg/dL Total Bilirubin 0.4 (0.2-1.3) mg/dL AST 24 (14-36) U/L ALT 31 (9-52) U/L Alkaline Phosphatase 72 (38-126) U/L Total Creatine Kinase (30-135) U/L CK-MB (CK-2) (0.0-2.4) ng/mL CK-MB (CK-2) Rel Index Troponin I (0.000-0.034) ng/mL Total Protein 7.2 (6.3-8.2) g/dL Albumin 3.9 (3.5-5.0) g/dL 12/11/17 12/11/17 Range/Units 19:15 19:15 WBC (3.8-10.6) k/uL RBC (3.80-5.40) m/uL Hgb (11.4-16.0) gm/dL Hct (34.0-46.0) % MCV (80.0-100.0) fL MCH (25.0-35.0) pg MCHC (31.0-37.0) g/dL RDW (11.5-15.5) % Plt Count (150-450) k/uL Neutrophils % % Lymphocytes % % Monocytes % % Eosinophils % % Basophils % % Neutrophils # (1.3-7.7) k/uL Lymphocytes # (1.0-4.8) k/uL Monocytes # (0-1.0) k/uL Eosinophils # (0-0.7) k/uL Basophils # (0-0.2) k/uL PT 10.2 (9.0-12.0) sec INR 1.0 (<1.2) APTT 23.7 (22.0-30.0) sec Sodium (137-145) mmol/L Potassium (3.5-5.1) mmol/L Chloride (98-107) mmol/L Carbon Dioxide (22-30) mmol/L Anion Gap mmol/L BUN (7-17) mg/dL Creatinine (0.52-1.04) mg/dL Est GFR (CKD-EPI)AfAm (>60 ml/min/1.73 sqM) Est GFR (CKD-EPI)NonAf (>60 ml/min/1.73 sqM) Glucose (74-99) mg/dL POC Glucose (mg/dL) (75-99) mg/dL POC Glu Insurance Clerk ID Calcium (8.4-10.2) mg/dL Total Bilirubin (0.2-1.3) mg/dL AST (14-36) U/L ALT (9-52) U/L Alkaline Phosphatase (38-126) U/L Total Creatine Kinase 31 (30-135) U/L CK-MB (CK-2) 0.3 (0.0-2.4) ng/mL CK-MB (CK-2) Rel Index 1.0 Troponin I <0.012 (0.000-0.034) ng/mL Total Protein (6.3-8.2) g/dL Albumin (3.5-5.0) g/dL Past Medical History Past Medical History: Coronary Artery Disease (CAD), Chest Pain / Angina, CVA/ TIA, Fibromyalgia, GERD/Reflux, Musculoskeletal Disorder, Neurologic Disorder, Osteoarthritis (OA), Pneumonia, Seizure Disorder, Thyroid Disorder Additional Past Medical History / Comment(s): central pontinemyelinilysis-(cmp) , myoclonic jerks, tremors, pt stated 5 cva-lt sided weakness, occ trouble swallowing,anxiety, depression, bipolar disorder, H/O cardiac arrest at 12 year old post Appendectomy.falls, tinnitus,bronchitis, scoliosis, endometerois, uterine fibroids, pout in paast, uti, sinus problems, fx to rt ankle,rtand lt wrist, lt elbow History of Any Multi-Drug Resistant Organisms: None Reported Past Surgical History: Appendectomy, Hysterectomy Additional Past Surgical History / Comment(s): 2 uterine suspension then Total abdominal hysterectomy and bilateral sopping oophorectomy, appendectomy at the age of 12 followed by a cardiac arrest, lasik eye sx sophia, d&c,bronchoscopy x3, lt hand sx. Past Anesthesia/Blood Transfusion Reactions: No Reported Reaction Additional Past Anesthesia/Blood Transfusion Reaction / Comment(s): blood transfusions-no reaction Past Psychological History: Anxiety, Bipolar, Depression Smoking Status: Former smoker Past Alcohol Use History: None Reported Past Drug Use History: Marijuana - Past Family History Mother Family Medical History: Diabetes Mellitus Father Family Medical History: Cancer Brother(s) Family Medical History: Coronary Artery Disease (CAD) Sister(s) Family Medical History: No Reported History Daughter(s) Family Medical History: No Reported History Course Vital Signs 12/11/17 12/11/17 12/11/17 19:04 19:15 19:30 Temperature 98.1 F Pulse Rate 78 72 65 Respiratory 16 18 18 Rate Blood Pressure 130/81 136/86 137/70 O2 Sat by Pulse 93 L 100 98 Oximetry 12/11/17 12/11/17 12/11/17 19:45 20:00 20:15 Temperature Pulse Rate 72 61 79 Respiratory 18 16 18 Rate Blood Pressure 132/70 112/68 134/81 O2 Sat by Pulse 94 L 93 L 95 Oximetry - Reevaluation(s) Reevaluation #1: 12/11/17 20:38 Reevaluation patient after return from CAT scan shows no change patient still demonstrates left bia-plegia upper lower extremity with left facial asymmetry and difficulty with speech. Reevaluation #2: 12/11/17 20:38 CT shows no evidence of acute findings on plain CT CT also shows no evidence of any aneurysmal change or obstruction. Reevaluation #3: 12/11/17 20:38 The patient's case was discussed with Dr. Nettles, the patient will be transferred to [facility]. I did discuss the findings the patient and her . Patient has agreed to TPA. There was some delay in TPA due to the CAT scan be occupied by a another patient with a cervical vascular emergency. Reevaluation #4: 12/11/17 20:40 Did discuss the case with Dr. Malhotra in the emergency department at [facility] she is aware and agrees to the transfer. Critical Care Time Critical Care Time: Yes Critical Care Time: 49 minutes of critical care time which includes monitoring EMS run and discussed with paramedics history physical labs x-rays on the patient multiple reevaluation patient responsive therapy and treatment. Discussion with the interventional neurologist discussion with family members. Documentation the above. Disposition Clinical Impression: Cerebrovascular accident Disposition: OTHER INSTITUTION NOT DEFINED Condition: Critical Is patient prescribed a controlled substance at d/c from ED?: No Referrals: Emeka French DO [Primary Care Provider] - 1-2 days - Out of Hospital Transfer - Req. Specs Out of Hospital Transfer - Requested Specifics: Other Emergency Center
[2017-12-11 19:37] LABS: Albumin 3.9 g/dL (3.5-5.0)
[2017-12-11 19:39] LABS: ALT 31 U/L (9-52); AST 24 U/L (14-36); Alkaline Phosphatase 72 U/L (38-126); Anion Gap 8 mmol/L; Blood Urea Nitrogen 14 mg/dL (7-17); Calcium 9.4 mg/dL (8.4-10.2); Carbon Dioxide 23 mmol/L (22-30); Chloride 106 mmol/L (98-107); Glucose 113 mg/dL (74-99); Potassium 4.1 mmol/L (3.5-5.1); Sodium 137 mmol/L (137-145); Total Bilirubin 0.4 mg/dL (0.2-1.3); Total Protein 7.2 g/dL (6.3-8.2)
[2017-12-11 19:41] LABS: Partial Thromboplastin Time 23.7 sec (22.0-30.0); Prothrombin Time 10.2 sec (9.0-12.0)
[2017-12-11 19:44] LABS: Creatine Kinase 31 U/L (30-135)
[2017-12-11 19:57] LABS: Creatine Kinase MB 0.3 ng/mL (0.0-2.4); Troponin I <0.012 ng/mL (0.000-0.034)
--- NOTE | 2017-12-11 20:02 | CT ---
EXAMINATION TYPE: CT brain wo con for TPA DATE OF EXAM: 12/11/2017 HISTORY: Code stroke, neuro deficits per order. Altered mental status. CT DLP: 886.6 mGycm. Automated Exposure Control for Dose Reduction was Utilized. TECHNIQUE: CT scan of the head is performed without contrast. COMPARISON: CT brain September 04, 2017. FINDINGS: There is no acute intracranial hemorrhage or midline shift identified. There is diffuse v entricular and sulcal prominence consistent with diffuse age-related cerebral atrophy. Atrophy is sli ghtly more prominent over bilateral frontal lobes. Givens-white matter differentiation is fairly well-m aintained. The globes are intact and the visualized sinuses are clear. IMPRESSION: No acute intracranial hemorrhage or midline shift. There is mild to moderate diffuse ag e-related cerebral atrophy most prominent over bilateral frontal lobes. No significant change from p rior CT.
--- NOTE | 2017-12-11 20:05 | XR ---
EXAMINATION TYPE: XR chest 1V DATE OF EXAM: 12/11/2017 COMPARISON: Chest x-ray March 26, 2017 HISTORY: Altered mental status and weakness. TECHNIQUE: Single AP portable frontal upright view of the chest is obtained. FINDINGS: There is new left basilar opacity with lost of left lateral costophrenic angle. Right lung is clear. The cardiac silhouette size remains within normal limits. The osseous structures are de mineralized. IMPRESSION: New small left pleural effusion and associated patchy left basilar atelectasis and/or in filtrate.
[2017-12-11] MEDS ORDERED: tPA (Alteplase) PER PHARMACY 1 EACH MISC MISCELLANE PRN (20:16)
[2017-12-11] MEDS ORDERED: ALTEPLASE BOLUS 7 MG in EMPTY SYRINGE 1 SYR IV STA (20:17)
[2017-12-11] MEDS ORDERED: ALTEPLASE 63 MG in EMPTY BAG 1 BAG IV STA (20:17)
--- NOTE | 2017-12-11 20:24 | CT ---
EXAMINATION TYPE: CT angio head neck DATE OF EXAM: 12/11/2017 HISTORY: Code stroke. Neuro deficits. Acute altered mental status. COMPARISON: NONE CT DLP: 385.7 mGycm. Automated Exposure Control for Dose Reduction was Utilized. TECHNIQUE: CTA scan of the head and neck are performed with IV Contrast, patient injected with 65 mL of Isovue 370, axial images are obtained, coronal and sagittal reformatted images are reviewed. Thre e-D reconstructed images are created on an independent workstation and reviewed. FINDINGS: Carotid/Vascular Structures: There is normal three-vessel origin from aortic arch . No significant pl aque in arch is present. Visualized subclavian arteries bilaterally show no significant plaque or codie nosis. Right common carotid artery shows normal origin from right brachiocephalic artery. There is no significant plaque or stenosis of right common or internal carotid arteries including at level of ca rotid bulb. This patent right external carotid artery without significant plaque or stenosis. There is no significant plaque or stenosis in left common or internal carotid arteries including at l evel of carotid bulb. There is a patent external carotid artery without significant plaque or stenosi s. There is codominant vertebrobasilar system. Vertebral arteries are patent to basilar junction. There are hypoplastic posterior to indicating arteries seen bilaterally. There is no significant plaque or stenosis in the posterior circulation. Images of the anterior circulation show no significant plaque or stenosis. Patent anterior communicat ing artery is not definitively seen. Thin cut 1 mm images are not sent to PACS system making evaluati on slightly suboptimal. Other: Moderate anterior scarring right upper lung is present. IMPRESSION: 1. No significant stenosis in common or internal carotid arteries bilaterally. 2. No aneurysmal change at level of upper [place] of [place].
[2017-12-11] MEDS ORDERED: LORazepam 2 MG/ML INJ IV STA (20:37)
[2017-12-11] MEDS ORDERED: SODIUM CHLORIDE 0.9% 500 ML 500 ML IV ONE (21:16)
[2017-12-11 21:28] VITALS: TEMP 97.1
[2017-12-11 21:29] VITALS: BP 144/82; PULSE 66; RESP 16
== END 2017-12-11 21:20 | disposition other institution (70) ==
LOC: EC 19:04
DX: I63.9 Cerebral infarction, unspecified (principal); I25.10 Atherosclerotic heart disease of native coronary artery without angina pectoris; G40.909 Epilepsy, unspecified, not intractable, without status epilepticus; E07.9 Disorder of thyroid, unspecified; F41.9 Anxiety disorder, unspecified; F32.9 Major depressive disorder, single episode, unspecified; Z86.74 Personal history of sudden cardiac arrest; Z87.891 Personal history of nicotine dependence; Z90.49 Acquired absence of other specified parts of digestive tract; Z90.710 Acquired absence of both cervix and uterus; Z90.722 Acquired absence of ovaries, bilateral; Z98.890 Other specified postprocedural states; Z79.52 Long term (current) use of systemic steroids; Z79.899 Other long term (current) drug therapy; Z88.5 Allergy status to narcotic agent; Z88.8 Allergy status to other drugs, medicaments and biological substances
CPT/HCPCS: 36415; 93005; 80053; 82550; 82553; 84484; 85025; 85610; 85730; 71045; 70496; 70450; 70498; 99291; 37195; 96374; 96361; J2997; J2060; Q9967

== ENCOUNTER → 2018-10-19 | Outpatient (CLI) | payer MEDICARE, OTHER ==
--- NOTE | 2018-10-19 18:00 | MR ---
EXAMINATION TYPE: MR brain/lspine wo con DATE OF EXAM: 10/19/2018 COMPARISON: MR brain 09/27/2015. MR scan lumbar spine 03/22/2010. HISTORY: Radiculopathy, [place] myelinolysis recheck Multiplanar multiecho imaging of the brain was performed without contrast. There is some cerebral cortical atrophy. There is no mass effect nor midline shift. There is no evide nce of cerebral edema. There is mild maxillary sinus mucosal thickening. There is slight increased signal on the posterior brainstem at the level of the cerebral peduncles on the T2 and FLAIR images. This is also present on old exam and not significantly different. There is no evidence of cortical infarct. There is no evidence of posterior fossa mass. There is a 3 mm focus of increased signal within the central brainstem as well. Corpus callosum is intact. Sella turcica appears normal. IMPRESSION: Mild atrophy. Brainstem findings could relate to small vessel ischemia. This could be atypical demyel inating disease. There is not an asymmetric distribution to suggest ordinary MS. I see no evidence of demyelinating disease in the cerebral hemispheres. There is overall no significant change compared t o old exam. Lumbar spine. Lumbar vertebra have normal alignment. Disc spaces are fairly normal. There is a small posterior cent ral and left side lumbar disc herniation without significant impingement on the neural elements. Ther e is developmentally large spinal canal. There is no spinal stenosis. There is no lumbar paraspinal m ass. The neuroforamina are fairly well-maintained. There is no compression fracture. Sacroiliac joint s are intact. There is mild posterior disc bulging at T12-L1 and L1-L2. There is no lumbar paraspinal mass. IMPRESSION: Small posterior disc herniation at L5-S1 is new compared to old exam. Small disc herniations in the u pper lumbar spine not significantly different. No spinal stenosis. Developmentally large spinal canal . No fracture.
== END | disposition home or self-care (01) ==
LOC: RADMRIMAIN 14:05
PROVIDERS: ATTEND Family Medicine
DX: M51.27 Other intervertebral disc displacement, lumbosacral region (principal); G37.2 Central pontine myelinolysis
CPT/HCPCS: 70551; 72148

== ENCOUNTER → 2019-02-06 | Outpatient (CLI) | payer MEDICARE, OTHER ==
--- NOTE | 2019-02-06 13:16 | CT ---
EXAMINATION TYPE: CT abdomen pelvis wo con DATE OF EXAM: 02/06/2019 COMPARISON: 11/08/2017 HISTORY: 63-year-old female LLQ pain and possible hernia CT DLP: 524.2 mGycm. Automated exposure control for dose reduction was used. TECHNIQUE: Contiguous axial scanning of the abdomen and pelvis without IV contrast. Coronal and sagit maryjo reconstructions performed. FINDINGS: Heart normal size without pericardial effusion. Some groundglass densities in the posterior lung base s remain unchanged. Stable 4 mm peripheral left basilar pulmonary nodule probably sequela of granulom atous disease. Calcified granuloma anterior liver margin. Otherwise, noncontrast appearance of the liver, gallbladde r, right adrenal gland, right kidney with extrarenal pelvis, left kidney with a smaller extrarenal pe lvis, and pancreas show no gross abnormality. Numerous calcified granulomas within the spleen. Small fatty umbilical hernia. Mild atherosclerotic calcifications infrarenal abdominal aorta without aneurysm. No dilated small bowel, free fluid, or free air. Oral contrast progressed to the mid colon. No colin lonic inflammatory change. Mild circumferential wall thickening distal sigmoid, axial image 62 which may relate to nondistention. No mesenteric or retroperitoneal lymphadenopathy. Bladder is urine distended. Uterus surgically absent. No sizable abdominal wall or inguinal hernia is seen. No femoral canal hernia. No abnormal fluid collection in the pelvis or pelvic lymphadenopathy. Bones: Mild degenerative changes of the hips. No osseous destructive process. IMPRESSION: 1. Mild circumferential wall thickening distal sigmoid may relate to nondistention or a nonspecific mild colitis. Clinically correlate. 2. Small fatty umbilical hernia. Otherwise, no sizable abdominal wall or inguinal hernia. 3. Prior granulomatous disease.
== END | disposition home or self-care (01) ==
LOC: RADCTMAIN 10:30
PROVIDERS: ATTEND Family Medicine
DX: K42.9 Umbilical hernia without obstruction or gangrene (principal); R10.32 Left lower quadrant pain
CPT/HCPCS: 74176

== ENCOUNTER → 2019-03-21 | Day surgery (SDC) | payer MEDICARE, OTHER ==
[2019-03-19 15:02] VITALS: BMI 26.3
--- NOTE | 2019-03-20 14:48 | P.GSHP ---
History of Present Illness H&P Date: 03/21/19 CHIEF COMPLAINT: Skin lesion pubis HISTORY OF PRESENT ILLNESS: The patient is a 63 year-old female with history of skin lesion of the pubis. She presents today for surgical excision. PAST MEDICAL HISTORY: Please see list. PAST SURGICAL HISTORY: Please see list. MEDICATIONS: Please see list. ALLERGIES: Please see list. SOCIAL HISTORY: No illicit drug use FAMILY HISTORY: No reports of Crohn disease or ulcerative colitis. REVIEW OF ORGAN SYSTEMS: CONSTITUTIONAL: No reports of fevers or chills. GI: Denies any blood in stools or constipation. PHYSICAL EXAM: VITAL SIGNS: Stable SKIN: Well perfused. Good skin turgor. 2 cm lesion at the pubis Musculoskeletal: No clubbing cyanosis or edema GENERAL: Well developed and in no acute distress. Pleasant. HEENT: No sclera icterus. Extraocular movements grossly intact. Moist buccal mucosa. Head is atraumatic, normocephalic. Hears conversational speech. No nasal drainage. NECK: Supple without lymphadenopathy. No JV distention. CHEST: Non-labored respirations and equal bilateral excursions. CARDIOVASCULAR: Regular rate and rhythm. Palpable 2+ radial pulses. ABDOMEN: Soft. Non-tender. Nondistended. NEUROLOGIC: No focal or lateralizing signs. PSYCH: Appropriate affect. Alert and oriented to person, place and time. ASSESSMENT: 1. Skin lesion, pubis PLAN: 1. Will proceed of excision of skin lesion, pubis 2. DVT prophylaxis. 3. Antibiotic prophylaxis. 4. Time of recovery, at least one week. Past Medical History Past Medical History: Coronary Artery Disease (CAD), Chest Pain / Angina, CVA/TIA, GERD/Reflux, Musculoskeletal Disorder, Neurologic Disorder, Osteoarthritis (OA), Pneumonia, Seizure Disorder, Thyroid Disorder Additional Past Medical History / Comment(s): central pontinemyelinilysis-(cmp), myoclonic jerks, tremors, pt stated 5 cva-lt sided weakness, occ trouble swallowing,anxiety, depression, bipolar disorder, H/O cardiac arrest at 12 year old post Appendectomy.falls, tinnitus,bronchitis, scoliosis, endometerois, uterine fibroids, gout in past, uti, sinus problems, fx to rt ankle,rtand lt wrist, lt elbow History of Any Multi-Drug Resistant Organisms: None Reported Past Surgical History: Appendectomy, Heart Catheterization, Hysterectomy Additional Past Surgical History / Comment(s): 2 uterine suspension then Total abdominal hysterectomy and bilateral sopping oophorectomy, appendectomy at the age of 12 followed by a cardiac arrest, lasik eye sx sophia, d&c,bronchoscopy x3, lt hand sx. Past Anesthesia/Blood Transfusion Reactions: No Reported Reaction Additional Past Anesthesia/Blood Transfusion Reaction / Comment(s): blood transfusions-no reaction Smoking Status: Former smoker - Past Family History Mother Family Medical History: Diabetes Mellitus Father Family Medical History: Cancer Brother(s) Family Medical History: Coronary Artery Disease (CAD) Sister(s) Family Medical History: No Reported History Daughter(s) Family Medical History: No Reported History Medications and Allergies Home Medications Medication Instructions Recorded Confirmed Type Levothyroxine Sodium [Synthroid] 25 mcg PO DAILY 08/11/13 03/19/19 History Primidone [Mysoline] 50 mg PO HS 08/11/13 03/19/19 History Zinc 50 mg PO DAILY 09/02/15 03/19/19 History Multivitamins, Thera [Multivitamin 1 tab PO DAILY 08/21/16 03/19/19 History (formulary)] Aspirin [Adult Low Dose Aspirin EC] 81 mg PO HS 03/19/19 03/19/19 History Calcium Carbonate [Calcium] 600 mg PO HS 03/19/19 03/19/19 History Cyanocobalamin [Vitamin B-12 1,000 mcg SQ QMONTH 03/19/19 03/19/19 History Injection] Fluticasone Nasal [place] [Flonase 1 spray EA NOSTRIL BID PRN 03/19/19 03/19/19 History Nasal [place]] LORazepam [Ativan] 1 mg PO TID PRN 03/19/19 03/19/19 History Loratadine [Claritin] 10 mg PO HS 03/19/19 03/19/19 History Allergies Allergy/AdvReac Type Severity Reaction Status Date / Time acetaminophen [From Vicodin] Allergy Unknown Verified 03/19/19 14:51 codeine Allergy Unknown Verified 03/19/19 14:51 hydrocodone bitartrate Allergy Unknown Verified 03/19/19 14:51 [From Vicodin] ANTIBIOTICS- ALL OF THEM Allergy Unknown Uncoded 03/19/19 14:51
[~2019-03-21] MED LIST: ACETAMINOPHEN TAB 500 MG TAB PO STA; DEXAMETHASONE SOD PHOSPHATE 10 MG/ML 1 ML VIAL IV ONE; HYDROmorphone 0.5 MG/0.5 ML SYRINGE IVP PRN; LACTATED RINGERS 1,000 ML IV SCH; LIDOCAINE 1% 20 ML VIAL (10MG/ML) FOR IV START INTRADERMA PRN; LIDOCAINE 1%-EPI 1:100,000 20 ML VIAL SQ ONE; MIDAZOLAM 2 MG/2 ML VIAL IV ONE; MIDAZOLAM 2 MG/2 ML VIAL ONE; ONDANSETRON 4 MG/2 ML VIAL IVP ONE; PROPOFOL 10 MG/ML 20 ML VIAL IV ONE; Pre Op ABX Message 1 EACH MISC MISCELLANE ONE; SCOPOLAMINE 1.5MG/72HR PATCH TRANSDERM ONE; diphenhydrAMINE 50 MG/ML 1 ML VIAL ONE; fentaNYL (PF) 50 MCG/ML 2 ML AMP ONE
[2019-03-21 09:13] VITALS: RESP 16; TEMP 97
--- NOTE | 2019-03-21 11:46 | P.OP ---
Date of Procedure: 03/21/19 Description of Procedure: SURGEON: KAI PRETTY MD CONSERVATION OR HERITAGE ARCHITECT: NONE. PREOPERATIVE DIAGNOSES: 1. Nevus pubis, pre-malignant lesion 2. Anxiety disorder 3. Hypothyroidism POSTOPERATIVE DIAGNOSES: 1. Nevus pubis, pre-malignant lesion 2. Anxiety disorder 3. Hypothyroidism OPERATION: 1. Excision of pre-malignant lesion, pubis, 5 x 2 cm. 2. Complex closure of incision, pubis 6-cm. ANESTHESIA: MAC and local ESTIMATED BLOOD LOSS: 2 mL. SPECIMENS REMOVED: Lesion pubis COMPLICATIONS: None. FINDINGS: 1. Borders 5-mm obtained INDICATIONS: The patient is a 63-year-old female who presents with pre-malignant lesion of the pubis. Surgical options, including excision was discussed. Benefits and risks were described. Informed consent was obtained. DESCRIPTION OF PROCEDURE: In the pre-operative area, the lesion was palpated and marked with indelible marker. Patient was brought into the operating room, laid in supine position. After IV sedation, the pubis was prepped and draped in standard sterile fashion using ChloraPrep. A timeout protocol was confirmed with the surgical team regarding patient's name including procedures to be performed. Preoperative medications was administered. Ioban was placed. A soft tissue skin flap was developed after injecting with local. Using #15 blade a 5 x 2 cm transverse elliptical incision was made into the deep subcutaneous tissues with borders of 5-mm obtained around the lesion. The lesion was dissected circumferentially using Bovie cautery. Hemostasis was checked with electro-Bovie cautery. The specimen was passed off. Next the wound was closed in layers using 0-Vicryl for the deep subcutaneous tissue followed by 3-0 Vicryl for the deep dermis in an interrupted fashion. The skin was cleansed. For the dermis, 4-0 Monocryl was placed along the length of the incision. Exofin tape was applied over the incision for a fourth layer and with Optifoam. At the end of the procedure, needle, sponge, and instrument count had been verified correct by the surgical brace maker. The patient was taken to the postanesthesia care unit in stable condition. Plan - Discharge Summary Discharge Rx Participant: Yes New Discharge Prescriptions: New Ibuprofen [Motrin] 600 mg PO Q8HR PRN #30 tab PRN Reason: Pain Acetaminophen Tab [Tylenol Tab] 1,000 mg PO Q6HR PRN #30 tablet Continue Primidone [Mysoline] 50 mg PO HS Levothyroxine Sodium [Synthroid] 25 mcg PO DAILY Zinc 50 mg PO DAILY Multivitamins, Thera [Multivitamin (formulary)] 1 tab PO DAILY Cyanocobalamin [Vitamin B-12 Injection] 1,000 mcg SQ QMONTH Fluticasone Nasal [place] [Flonase Nasal [place]] 1 spray EA NOSTRIL BID PRN PRN Reason: Allergy Symptoms LORazepam [Ativan] 1 mg PO TID PRN PRN Reason: Anxiety Loratadine [Claritin] 10 mg PO HS Calcium Carbonate [Calcium] 600 mg PO HS Aspirin [Adult Low Dose Aspirin EC] 81 mg PO HS Discharge Medication List Levothyroxine Sodium [Synthroid] 25 mcg PO DAILY 08/11/13 [History] Primidone [Mysoline] 50 mg PO HS 08/11/13 [History] Zinc 50 mg PO DAILY 09/02/15 [History] Multivitamins, Thera [Multivitamin (formulary)] 1 tab PO DAILY 08/21/16 [History] Aspirin [Adult Low Dose Aspirin EC] 81 mg PO HS 03/19/19 [History] Calcium Carbonate [Calcium] 600 mg PO HS 03/19/19 [History] Cyanocobalamin [Vitamin B-12 Injection] 1,000 mcg SQ QMONTH 03/19/19 [History] Fluticasone Nasal [place] [Flonase Nasal [place]] 1 spray EA NOSTRIL BID PRN 03/19/19 [History] LORazepam [Ativan] 1 mg PO TID PRN 03/19/19 [History] Loratadine [Claritin] 10 mg PO HS 03/19/19 [History] Acetaminophen Tab [Tylenol Tab] 1,000 mg PO Q6HR PRN #30 tablet 03/21/19 [Rx] Ibuprofen [Motrin] 600 mg PO Q8HR PRN #30 tab 03/21/19 [Rx] Activity/Diet/Wound Care/Special Instructions: May shower. No bath tub soak. Keep dressing as dry as possible until removed by surgeon in office Mar 25. Discharge Disposition: HOME SELF-CARE
[2019-03-21 11:52] VITALS: BP 107/66; PULSE 92
== END | disposition home or self-care (01) ==
LOC: OR 08:41
PROVIDERS: ATTEND Surgery Plastic and Reconstructive Surgery
DX: L82.1 Other seborrheic keratosis (principal); I25.119 Atherosclerotic heart disease of native coronary artery with unspecified angina pectoris; E03.9 Hypothyroidism, unspecified; K21.9 Gastro-esophageal reflux disease without esophagitis; G40.909 Epilepsy, unspecified, not intractable, without status epilepticus; I69.354 Hemiplegia and hemiparesis following cerebral infarction affecting left non-dominant side; I69.391 Dysphagia following cerebral infarction; R13.10 Dysphagia, unspecified; F41.9 Anxiety disorder, unspecified; F31.9 Bipolar disorder, unspecified; M41.9 Scoliosis, unspecified; N80.9 Endometriosis, unspecified; H93.19 Tinnitus, unspecified ear; Z86.74 Personal history of sudden cardiac arrest; Z90.49 Acquired absence of other specified parts of digestive tract; Z87.01 Personal history of pneumonia (recurrent); Z87.440 Personal history of urinary (tract) infections; Z90.710 Acquired absence of both cervix and uterus; Z90.79 Acquired absence of other genital organ(s); Z90.722 Acquired absence of ovaries, bilateral; Z98.890 Other specified postprocedural states; Z91.81 History of falling; Z87.891 Personal history of nicotine dependence; Z83.3 Family history of diabetes mellitus; Z80.9 Family history of malignant neoplasm, unspecified; Z82.49 Family history of ischemic heart disease and other diseases of the circulatory system; Z79.890 Hormone replacement therapy; Z79.82 Long term (current) use of aspirin; Z79.899 Other long term (current) drug therapy; Z88.5 Allergy status to narcotic agent; Z88.1 Allergy status to other antibiotic agents
CPT/HCPCS: 88305; 11406; 12032; J2250; J1200; J1100; J0690; J2405; J3010; J2704

== ENCOUNTER → 2019-05-01 | Outpatient (CLI) | payer MEDICARE, OTHER ==
--- NOTE | 2019-05-01 12:03 | FL ---
EXAMINATION TYPE: FL barium swallow w video DATE OF EXAM: 05/01/2019 MODIFIED SWALLOW / DEGLUTITION STUDY CLINICAL HISTORY: Dysphagia. Airway spasms per patient history. TECHNIQUE: Deglutition study is performed utilizing thin liquid barium and barium thick pudding. 42 seconds of fluoroscopy time was utilized with 0 fluoroscopic images saved as the examination was vide o recorded. COMPARISON: None. FINDINGS: The oral and pharyngeal phases show satisfactory initiation and propagation with all modali ties tested. Normal mastication is seen with solid modalities tested. There is no evidence of penet ration or aspiration with any modality tested. No significant pharyngeal residue was appreciated. IMPRESSION: Normal deglutition study. Please refer to speech therapist notes for further details if necessary.
== END | disposition home or self-care (01) ==
LOC: RADFLMAIN 11:18
PROVIDERS: ATTEND Family Medicine
DX: R13.10 Dysphagia, unspecified (principal)
CPT/HCPCS: 74230

== ENCOUNTER → 2019-07-08 | Outpatient (CLI) | payer MEDICARE, OTHER | END | disposition home or self-care (01) | LOC: LABWHC1 13:09 | PROVIDERS: ATTEND Family Medicine | DX: Z11.59 Encounter for screening for other viral diseases (principal) | CPT/HCPCS: 87635 ==

== ENCOUNTER 2019-09-07 16:11 | Emergency (ER) | payer MEDICARE, OTHER ==
[2019-09-07 16:16] VITALS: RESP 16; TEMP 98.1
[2019-09-07] MEDS ORDERED: ONDANSETRON 4 MG/2 ML VIAL IVP STA (16:43)
[2019-09-07] MEDS ORDERED: SODIUM CHLORIDE 0.9% 1,000 ML IV STA (16:43)
[2019-09-07] MEDS ORDERED: MAG HYDROX/AL HYDROX/SIMETH 30 ML, HYOSCYAMINE ELIXIR 10 ML, LIDOCAINE VISCOUS 2% 10 ML PO STA ×3 (16:45)
[2019-09-07] MEDS ORDERED: PANTOPRAZOLE 40 MG/10 ML VIAL IVP STA (16:45)
[2019-09-07] MEDS ORDERED: MORPHINE SULFATE 4 MG/ML SYRINGE IVP STA (16:45)
[2019-09-07 17:06] LABS: Basophils # (A) 0.1 k/uL (0-0.2); Basophils % (A) 1 %; Eosinophils # (A) 0.3 k/uL (0-0.7); Eosinophils % (A) 4 %; HGB 14.2 gm/dL (11.4-16.0); Lymphocytes # (A) 2.6 k/uL (1.0-4.8); Lymphocytes % (A) 31 %; MCV 87.9 fL (80.0-100.0); Mean Platelet Volume 6.8; Monocytes # (A) 0.5 k/uL (0-1.0); Monocytes % (A) 6 %; Neutrophils # (A) 4.7 k/uL (1.3-7.7); Neutrophils % (A) 56 %; Platelet Count 307 k/uL (150-450); RBC 4.89 m/uL (3.80-5.40); RDW 13.4 % (11.5-15.5); WBC 8.3 k/uL (3.8-10.6)
[2019-09-07 17:17] LABS: ALT 45 U/L (4-34); AST 48 U/L (14-36); African American GFR (CKD) >90 (>60 ml/min/1.73 sqM); Albumin 4.2 g/dL (3.5-5.0); Alkaline Phosphatase 82 U/L (38-126); Amylase 114 U/L (30-110); Anion Gap 8 mmol/L; Blood Urea Nitrogen 10 mg/dL (7-17); Calcium 9.3 mg/dL (8.4-10.2); Carbon Dioxide 22 mmol/L (22-30); Chloride 106 mmol/L (98-107); Glucose 86 mg/dL (74-99); Non-African American GFR(CKD) >90 (>60 ml/min/1.73 sqM); Potassium 4.1 mmol/L (3.5-5.1); Sodium 136 mmol/L (137-145); Total Bilirubin 0.5 mg/dL (0.2-1.3); Total Protein 7.1 g/dL (6.3-8.2)
[2019-09-07 18:23] LABS: Amorphous Sediment,Urine Rare /hpf; Appearance,Urine Turbid (Clear); Bacteria,Urine Few /hpf; Bilirubin,Urine Negative (Negative); Blood,Urine Trace (Negative); Color,Urine Light Yellow; Glucose,Urine (UA) Negative (Negative); Ketones,Urine Negative (Negative); Leukocyte Esterase,Urine Small (Negative); Mucus,Urine Rare /hpf; Nitrite,Urine Negative (Negative); Protein,Urine Negative (Negative); RBC,Urine 2 /hpf (0-5); Specific Gravity,Urine 1.004 (1.001-1.035); Squamous Epithelial Cell,Urine 47 /hpf (0-4); Urobilinogen,Urine <2.0 mg/dL (<2.0); WBC,Urine 4 /hpf (0-5)
--- NOTE | 2019-09-07 18:23 | CT ---
EXAMINATION TYPE: CT abdomen pelvis w con DATE OF EXAM: 09/07/2019 COMPARISON: 02/06/2019 HISTORY: abdominal pain, hx of hernia CT DLP: 823.6 mGycm Automated exposure control for dose reduction was used. CONTRAST: Performed with IV Contrast, patient injected with 100 mL of Isovue 300. Images were obtained from the diaphragm to the floor the pelvis with IV contrast. There is minimal interstitial infiltrate in the right posterior lung base. Heart size is normal. Ther e is no pericardial effusion. There are numerous calcified splenic granulomata. Stomach is intact. Th ere is no pancreatic mass. Gallbladder appears normal. Liver shows no focal defect. The bile ducts ar e not dilated. There is no adrenal mass. Kidneys show satisfactory contrast opacification. There is no hydronephrosi s. Delayed images show normal renal excretion. There is no retroperitoneal adenopathy. Bladder disten ds smoothly. There is no inguinal hernia. There is no free fluid in the pelvis. There is no evidence of pelvic mass. There is hysterectomy. There is no mesenteric edema. There is no ascites or free air. There is no sign of bowel obstruction. Appendix is not seen. There is no sign of thickened appendix. Lumbar vertebra have fairly normal spa cing and alignment. Posterior elements are intact. There is no compression fracture. Bony pelvis appe ars intact. There is small umbilical hernia that contains fat. IMPRESSION: Negative CT scan abdomen and pelvis. Old granulomatous disease. No adverse change compared to old exa m.
--- NOTE | 2019-09-07 18:35 | ED ---
Abdominal Pain HPI - General Chief Complaint: Abdominal Pain Stated Complaint: abd pain Time Seen by Provider: 09/07/19 16:27 Source: patient Mode of arrival: ambulatory Limitations: no limitations - History of Present Illness Initial Comments: Patient is a 64-year-old female presenting to the emergency Department with complaints of epigastric pain that started early this morning apparently 3 AM. Patient states she has a history of a hiatal hernia and is worried that this may be becoming strangulated. She has seen Dr. Nicole in the past for this. She states she is nauseous, no vomiting. She denies any fever or chills. She denies chest pain or shortness of breath. She states she has not eaten anything today secondary to the pain. She admits to history of appendectomy, hysterectomy, no other abdominal surgeries. She's been having regular bowel movements, denies any dysuria. She is no further complaints at this time. Upon arrival to the ER, her vital signs are stable. - Related Data Home Medications Medication Instructions Recorded Confirmed Levothyroxine Sodium [Synthroid] 25 mcg PO DAILY 08/11/13 03/21/19 Primidone [Mysoline] 50 mg PO HS 08/11/13 03/21/19 Zinc 50 mg PO DAILY 09/02/15 03/21/19 Multivitamins, Thera [Multivitamin 1 tab PO DAILY 08/21/16 03/21/19 (formulary)] Aspirin [Adult Low Dose Aspirin EC] 81 mg PO HS 03/19/19 03/21/19 Calcium Carbonate [Calcium] 600 mg PO HS 03/19/19 03/21/19 Cyanocobalamin [Vitamin B-12 1,000 mcg SQ QMONTH 03/19/19 03/21/19 Injection] Fluticasone Nasal [place] [Flonase 1 spray EA NOSTRIL BID PRN 03/19/19 03/21/19 Nasal [place]] LORazepam [Ativan] 1 mg PO TID PRN 03/19/19 03/21/19 Loratadine [Claritin] 10 mg PO HS 03/19/19 03/21/19 Previous Rx's Medication Instructions Recorded Acetaminophen Tab [Tylenol Tab] 1,000 mg PO Q6HR PRN #30 tablet 03/21/19 Ibuprofen [Motrin] 600 mg PO Q8HR PRN #30 tab 03/21/19 HYDROcodone/APAP 5-325MG [[place] 1 tab PO Q6HR PRN 3 Days #10 tab 03/25/19 5-325] Allergies Allergy/AdvReac Type Severity Reaction Status Date / Time codeine Allergy Unknown Verified 09/07/19 16:17 hydrocodone bitartrate Allergy Unknown Verified 09/07/19 16:17 [From Vicodin] ibuprofen Allergy Unknown Verified 09/07/19 16:17 ANTIBIOTICS- ALL OF THEM Allergy Unknown Uncoded 09/07/19 16:17 Review of Systems ROS Statement: Those systems with pertinent positive or pertinent negative responses have been documented in the HPI. ROS Other: All systems not noted in ROS Statement are negative. Past Medical History Past Medical History: Coronary Artery Disease (CAD), Chest Pain / Angina, CVA/TIA, GERD/Reflux, Musculoskeletal Disorder, Neurologic Disorder, Osteoarthritis (OA), Pneumonia, Seizure Disorder, Thyroid Disorder Additional Past Medical History / Comment(s): central pontinemyelinilysis-(cmp), myoclonic jerks, tremors, pt stated 5 cva-lt sided weakness, occ trouble swallowing,anxiety, depression, bipolar disorder, H/O cardiac arrest at 12 year old post Appendectomy.falls, tinnitus,bronchitis, scoliosis, endometerois, uterine fibroids, gout in past, uti, sinus problems, fx to rt ankle,rtand lt wrist, lt elbow History of Any Multi-Drug Resistant Organisms: None Reported Past Surgical History: Appendectomy, Heart Catheterization, Hysterectomy Additional Past Surgical History / Comment(s): 2 uterine suspension then Total abdominal hysterectomy and bilateral sopping oophorectomy, appendectomy at the age of 12 followed by a cardiac arrest, lasik eye sx sophia, d&c,bronchoscopy x3, lt hand sx. Past Anesthesia/Blood Transfusion Reactions: No Reported Reaction Additional Past Anesthesia/Blood Transfusion Reaction / Comment(s): blood transfusions-no reaction Past Psychological History: Anxiety, Bipolar, Depression Past Alcohol Use History: None Reported Past Drug Use History: Marijuana - Past Family History Mother Family Medical History: Diabetes Mellitus Father Family Medical History: Cancer Brother(s) Family Medical History: Coronary Artery Disease (CAD) Sister(s) Family Medical History: No Reported History Daughter(s) Family Medical History: No Reported History General Exam - General Exam Comments Initial Comments: GENERAL: Patient is well-developed and well-nourished. Patient is nontoxic and in no acute distress. HEAD: Atraumatic, normocephalic. EYES: Pupils equal round and reactive to light, extraocular movements intact, sclera anicteric, conjunctiva are normal. Eyelids were unremarkable. ENT: TMs normal, nares patent, oropharynx clear without exudates. Moist mucous membranes. NECK: Normal range of motion, supple without lymphadenopathy or JVD. LUNGS: Unlabored respirations. Breath sounds clear to auscultation bilaterally and equal. No wheezes rales or rhonchi. HEART: Regular rate and rhythm without murmurs, rubs or gallops. ABDOMEN: Tender to palpation in the epigastric area. Soft, normoactive bowel sounds. No guarding, no rebound. No masses appreciated. : Deferred MUSCULOSKELETAL: Normal extremities with adequate strength and normal range of motion, no pitting or edema. No clubbing or cyanosis. NEUROLOGICAL: Patient is alert and oriented x 3. Normal speech, normal gait. PSYCH: Normal mood, normal affect. SKIN: Warm, Dry, normal turgor, no rashes or lesions noted. Limitations: no limitations Course Vital Signs 09/07/19 16:14 Temperature 98.1 F Pulse Rate 66 Respiratory 16 Rate Blood Pressure 106/69 O2 Sat by Pulse 97 Oximetry Medical Decision Making - Medical Decision Making Patient is a 64-year-old female here for epigastric pain that began early this morning. She has a history of head or hernia. Her vitals are stable upon arrival. Pain in the epigastric region only. Lab work shows no significant abnormality, lipase is normal, lactic acid is normal. Urine shows no evidence of infection. Computed tomography scan abdomen reveals no stiff skin abnormalities. Patient was given fluids, pain control, Zofran, GI cocktail. Sh matthew reports improvement in her symptoms. She states her pain is improved and she is only having small amount of pressure. I discussed with patient this is most likely gastritis. Recommended following up with her PCP and/or Dr. Glasgow. She is in agreement with this plan of care. She is stable for discharge. Return parameters were discussed with the patient she verbalized understanding. Case discussed with Dr. Cid. - Lab Data Result diagrams: 09/07/19 16:58 09/07/19 16:58 Lab Results 09/07/19 09/07/19 09/07/19 Range/Units 16:58 16:58 16:58 WBC 8.3 (3.8-10.6) k/uL RBC 4.89 (3.80-5.40) m/uL Hgb 14.2 (11.4-16.0) gm/dL Hct 43.0 (34.0-46.0) % MCV 87.9 (80.0-100.0) fL MCH 29.0 (25.0-35.0) pg MCHC 33.0 (31.0-37.0) g/dL RDW 13.4 (11.5-15.5) % Plt Count 307 (150-450) k/uL Neutrophils % 56 % Lymphocytes % 31 % Monocytes % 6 % Eosinophils % 4 % Basophils % 1 % Neutrophils # 4.7 (1.3-7.7) k/uL Lymphocytes # 2.6 (1.0-4.8) k/uL Monocytes # 0.5 (0-1.0) k/uL Eosinophils # 0.3 (0-0.7) k/uL Basophils # 0.1 (0-0.2) k/uL Sodium 136 L (137-145) mmol/L Potassium 4.1 (3.5-5.1) mmol/L Chloride 106 (98-107) mmol/L Carbon Dioxide 22 (22-30) mmol/L Anion Gap 8 mmol/L BUN 10 (7-17) mg/dL Creatinine 0.69 (0.52-1.04) mg/dL Est GFR (CKD-EPI)AfAm >90 (>60 ml/min/1.73 sqM) Est GFR (CKD-EPI)NonAf >90 (>60 ml/min/1.73 sqM) Glucose 86 (74-99) mg/dL Plasma Lactic Acid [place] 1.0 (0.7-2.0) mmol/L Calcium 9.3 (8.4-10.2) mg/dL Total Bilirubin 0.5 (0.2-1.3) mg/dL AST 48 H (14-36) U/L ALT 45 H (4-34) U/L Alkaline Phosphatase 82 (38-126) U/L Total Protein 7.1 (6.3-8.2) g/dL Albumin 4.2 (3.5-5.0) g/dL Amylase 114 H (30-110) U/L Lipase 73 (23-300) U/L Urine Color Urine Appearance (Clear) Urine pH (5.0-8.0) Ur Specific [place] (1.001-1.035) Urine Protein (Negative) Urine Glucose (UA) (Negative) Urine Ketones (Negative) Urine Blood (Negative) Urine Nitrite (Negative) Urine Bilirubin (Negative) Urine Urobilinogen (<2.0) mg/dL Ur Leukocyte Esterase (Negative) Urine RBC (0-5) /hpf Urine WBC (0-5) /hpf Ur Squamous Epith Cells (0-4) /hpf Amorphous Sediment (None) /hpf Urine Bacteria (None) /hpf Urine Mucus (None) /hpf 09/07/19 Range/Units 18:10 WBC (3.8-10.6) k/uL RBC (3.80-5.40) m/uL Hgb (11.4-16.0) gm/dL Hct (34.0-46.0) % MCV (80.0-100.0) fL MCH (25.0-35.0) pg MCHC (31.0-37.0) g/dL RDW (11.5-15.5) % Plt Count (150-450) k/uL Neutrophils % % Lymphocytes % % Monocytes % % Eosinophils % % Basophils % % Neutrophils # (1.3-7.7) k/uL Lymphocytes # (1.0-4.8) k/uL Monocytes # (0-1.0) k/uL Eosinophils # (0-0.7) k/uL Basophils # (0-0.2) k/uL Sodium (137-145) mmol/L Potassium (3.5-5.1) mmol/L Chloride (98-107) mmol/L Carbon Dioxide (22-30) mmol/L Anion Gap mmol/L BUN (7-17) mg/dL Creatinine (0.52-1.04) mg/dL Est GFR (CKD-EPI)AfAm (>60 ml/min/1.73 sqM) Est GFR (CKD-EPI)NonAf (>60 ml/min/1.73 sqM) Glucose (74-99) mg/dL Plasma Lactic Acid [place] (0.7-2.0) mmol/L Calcium (8.4-10.2) mg/dL Total Bilirubin (0.2-1.3) mg/dL AST (14-36) U/L ALT (4-34) U/L Alkaline Phosphatase (38-126) U/L Total Protein (6.3-8.2) g/dL Albumin (3.5-5.0) g/dL Amylase (30-110) U/L Lipase (23-300) U/L Urine Color Light Yellow Urine Appearance Turbid H (Clear) Urine pH 5.0 (5.0-8.0) Ur Specific [place] 1.004 (1.001-1.035) Urine Protein Negative (Negative) Urine Glucose (UA) Negative (Negative) Urine Ketones Negative (Negative) Urine Blood Trace H (Negative) Urine Nitrite Negative (Negative) Urine Bilirubin Negative (Negative) Urine Urobilinogen <2.0 (<2.0) mg/dL Ur Leukocyte Esterase Small H (Negative) Urine RBC 2 (0-5) /hpf Urine WBC 4 (0-5) /hpf Ur Squamous Epith Cells 47 H (0-4) /hpf Amorphous Sediment Rare H (None) /hpf Urine Bacteria Few H (None) /hpf Urine Mucus Rare H (None) /hpf Disposition Clinical Impression: Gastritis, Epigastric pain Disposition: HOME SELF-CARE Condition: Stable Instructions (If sedation given, give patient instructions): Gastritis (ED) Additional Instructions: Please return to the Emergency Department if symptoms worsen or any other concerns. Recommended taking medications with a small amount of food. Follow-up with PCP and/or Dr. Nicole. Is patient prescribed a controlled substance at d/c from ED?: No Referrals: Emeka French DO [Primary Care Provider] - 1-2 days
[2019-09-07 18:48] VITALS: BP 106/73; PULSE 52
== END 2019-09-07 18:47 | disposition home or self-care (01) ==
LOC: EC 16:11
DX: K29.70 Gastritis, unspecified, without bleeding (principal); F41.9 Anxiety disorder, unspecified; F31.9 Bipolar disorder, unspecified; I25.119 Atherosclerotic heart disease of native coronary artery with unspecified angina pectoris; M19.90 Unspecified osteoarthritis, unspecified site; G40.909 Epilepsy, unspecified, not intractable, without status epilepticus; E07.9 Disorder of thyroid, unspecified; Z79.82 Long term (current) use of aspirin; Z79.890 Hormone replacement therapy; Z79.899 Other long term (current) drug therapy; Z87.19 Personal history of other diseases of the digestive system; Z88.5 Allergy status to narcotic agent; Z88.1 Allergy status to other antibiotic agents; Z88.6 Allergy status to analgesic agent; Z95.5 Presence of coronary angioplasty implant and graft
CPT/HCPCS: 36415; 80053; 82150; 83605; 83690; 85025; 81001; 74177; 99284; 96374; 96375 ×2; 96361 ×2; J2270; J2405; C9113; Q9967

== ENCOUNTER 2019-11-16 13:59 | Emergency (ER) | payer MEDICARE, OTHER ==
[2019-11-16 14:16] VITALS: RESP 18
[2019-11-16 15:30] LABS: Basophils # (A) 0.1 k/uL (0-0.2); Basophils % (A) 1 %; Eosinophils # (A) 0.2 k/uL (0-0.7); Eosinophils % (A) 3 %; HCT 44.9 % (34.0-46.0); HGB 14.4 gm/dL (11.4-16.0); Lymphocytes # (A) 2.2 k/uL (1.0-4.8); Lymphocytes % (A) 28 %; MCH 28.1 pg (25.0-35.0); MCHC 32.1 g/dL (31.0-37.0); MCV 87.3 fL (80.0-100.0); Mean Platelet Volume 6.4; Monocytes # (A) 0.5 k/uL (0-1.0); Monocytes % (A) 6 %; Neutrophils # (A) 4.9 k/uL (1.3-7.7); Neutrophils % (A) 61 %; Platelet Count 326 k/uL (150-450); RBC 5.14 m/uL (3.80-5.40); RDW 13.4 % (11.5-15.5); WBC 8.1 k/uL (3.8-10.6)
[2019-11-16 15:39] LABS: ALT 27 U/L (4-34); AST 34 U/L (14-36); African American GFR (CKD) >90 (>60 ml/min/1.73 sqM); Albumin 4.3 g/dL (3.5-5.0); Alkaline Phosphatase 95 U/L (38-126); Anion Gap 6 mmol/L; Blood Urea Nitrogen 11 mg/dL (7-17); Calcium 9.6 mg/dL (8.4-10.2); Carbon Dioxide 26 mmol/L (22-30); Chloride 108 mmol/L (98-107); Glucose 101 mg/dL (74-99); Non-African American GFR(CKD) >90 (>60 ml/min/1.73 sqM); Potassium 5.3 mmol/L (3.5-5.1); Sodium 140 mmol/L (137-145); Total Bilirubin 0.5 mg/dL (0.2-1.3); Total Protein 7.4 g/dL (6.3-8.2)
--- NOTE | 2019-11-16 15:47 | XR ---
EXAMINATION TYPE: XR chest 2V DATE OF EXAM: 11/16/2019 COMPARISON: 12/11/2017 HISTORY: Cough and diarrhea TECHNIQUE: 2 views FINDINGS: Heart and mediastinum are normal. Lungs are clear. Diaphragm is normal. Bony thorax is norm al. There are chest leads. IMPRESSION: Normal chest. Inspiration improved compared to old exam.
--- NOTE | 2019-11-16 16:33 | ED ---
General Adult HPI - General Chief complaint: Nausea/Vomiting/Diarrhea Stated complaint: N/D,cough,chest tightness Time Seen by Provider: 11/16/19 14:16 Source: patient Mode of arrival: ambulatory Limitations: no limitations - History of Present Illness Initial comments: 64-year-old female with history of CPM, presenting for cough congestion generalized weakness and restrictive breathing sensation. Patient states she feels like she has bronchitis she states she feels like when she takes a deep breath that her bronchioles are restricted. Patietn staets she has had URI symptoms and diarrhea. cough, congestion. patient states hse was concerned of covid and came to ER> Denies chest pressure as though something is on her chest, denies hemoptysis, pain wtih a deep breath, denies dyspnea or leg swelling. denies fevers, neck stiffness or sore throat. Denies additional complaints. Upon arrival patient appears well nontoxic in no acute distress in good spirits, pleasant - Related Data Home Medications Medication Instructions Recorded Confirmed Levothyroxine Sodium [Synthroid] 25 mcg PO DAILY 08/11/13 03/21/19 Primidone [Mysoline] 50 mg PO HS 08/11/13 03/21/19 Zinc 50 mg PO DAILY 09/02/15 03/21/19 Multivitamins, Thera [Multivitamin 1 tab PO DAILY 08/21/16 03/21/19 (formulary)] Aspirin [Adult Low Dose Aspirin EC] 81 mg PO HS 03/19/19 03/21/19 Calcium Carbonate [Calcium] 600 mg PO HS 03/19/19 03/21/19 Cyanocobalamin [Vitamin B-12 1,000 mcg SQ QMONTH 03/19/19 03/21/19 Injection] Fluticasone Nasal Emily [Flonase 1 spray EA NOSTRIL BID PRN 03/19/19 03/21/19 Nasal Emily] LORazepam [Ativan] 1 mg PO TID PRN 03/19/19 03/21/19 Loratadine [Claritin] 10 mg PO HS 03/19/19 03/21/19 Previous Rx's Medication Instructions Recorded Acetaminophen Tab [Tylenol Tab] 1,000 mg PO Q6HR PRN #30 tablet 03/21/19 Ibuprofen [Motrin] 600 mg PO Q8HR PRN #30 tab 03/21/19 HYDROcodone/APAP 5-325MG [[place] 1 tab PO Q6HR PRN 3 Days #10 tab 03/25/19 5-325] Azithromycin [Zithromax Z-pack (6 0 mg PO DIRECTED #6 tab 11/16/19 tabs)] Allergies Allergy/AdvReac Type Severity Reaction Status Date / Time codeine Allergy Unknown Verified 11/16/19 14:16 hydrocodone bitartrate Allergy Unknown Verified 11/16/19 14:16 [From Vicodin] ibuprofen Allergy Unknown Verified 11/16/19 14:16 ANTIBIOTICS- ALL OF THEM Allergy Unknown Uncoded 11/16/19 14:16 Review of Systems ROS Statement: Those systems with pertinent positive or pertinent negative responses have been documented in the HPI. ROS Other: All systems not noted in ROS Statement are negative. Past Medical History Past Medical History: Coronary Artery Disease (CAD), Chest Pain / Angina, CVA/TIA, GERD/Reflux, Musculoskeletal Disorder, Neurologic Disorder, Osteoarthritis (OA), Pneumonia, Seizure Disorder, Thyroid Disorder Additional Past Medical History / Comment(s): central pontinemyelinilysis-(cmp), myoclonic jerks, tremors, pt stated 5 cva-lt sided weakness, occ trouble swallowing,anxiety, depression, bipolar disorder, H/O cardiac arrest at 12 year old post Appendectomy.falls, tinnitus,bronchitis, scoliosis, endometerois, uterine fibroids, gout in past, uti, sinus problems, fx to rt ankle,rtand lt wrist, lt elbow History of Any Multi-Drug Resistant Organisms: None Reported Past Surgical History: Appendectomy, Heart Catheterization, Hysterectomy Additional Past Surgical History / Comment(s): 2 uterine suspension then Total abdominal hysterectomy and bilateral sopping oophorectomy, appendectomy at the age of 12 followed by a cardiac arrest, lasik eye sx sophia, d&c,bronchoscopy x3, lt hand sx. Past Anesthesia/Blood Transfusion Reactions: No Reported Reaction Additional Past Anesthesia/Blood Transfusion Reaction / Comment(s): blood transfusions-no reaction Past Psychological History: Anxiety, Bipolar, Depression Smoking Status: Former smoker Past Alcohol Use History: None Reported Past Drug Use History: Marijuana - Past Family History Mother Family Medical History: Diabetes Mellitus Father Family Medical History: Cancer Brother(s) Family Medical History: Coronary Artery Disease (CAD) Sister(s) Family Medical History: No Reported History Daughter(s) Family Medical History: No Reported History General Exam - General Exam Comments Initial Comments: General: The patient is awake and alert, in no distress, and does not appear acutely ill. Eye: Pupils are equal, round and reactive to light, extra-ocular movements are intact. No nystagmus. There is normal conjunctiva bilaterally. No signs of ic terus. Ears, nose, mouth and throat: There are moist mucous membranes and no oral lesions. Neck: The neck is supple, there is no tenderness or JVD. Cardiovascular: There is a regular rate and rhythm. No murmur, rub or gallop is appreciated. Respiratory: Lungs are clear to auscultation, respirations are non-labored, breath sounds are equal. No wheezes, stridor, rales, or rhonchi. Gastrointestinal: Soft, non-distended, non-tender abdomen without masses or organomegaly noted. There is no rebound or guarding present Musculoskeletal: Normal ROM, no tenderness. Strength 5/5. Sensation intact. Pulses equal bilaterally 2+. Neurological: A&O x 3. CN II-XII intact, There are no obvious motor or sensory deficits. Coordination appears grossly intact. Speech is normal. Skin: Skin is warm and dry and no rashes or lesions are noted. No LE edema. Psychiatric: Cooperative, appropriate mood & affect, normal judgment. Limitations: no limitations Course Vital Signs 11/16/19 11/16/19 11/16/19 14:14 15:18 16:46 Temperature 98.0 F 98.2 F Pulse Rate 83 66 69 Respiratory 18 18 18 Rate Blood Pressure 117/62 118/72 115/63 O2 Sat by Pulse 97 99 96 Oximetry Medical Decision Making - Medical Decision Making 64yo with URi symptoms. She states it feels similar to when she's had bronchitis in the past she was concerned for covert and she has diarrhea. Laboratory studies stable vital signs stable patient hypoxic nor respiratory distress denies dyspnea. Chest x-ray clear of infiltrates at this time feel patient is stable for discharge with outpatient follow-up patient is agreeable to care plan and discharge at this time. discussed case with attending Dom Mack pt states she has tolerated a zpack in the past after reviewing "allergy to all antibiotics" - Lab Data Result diagrams: 11/16/19 14:57 11/16/19 14:57 Lab Results 11/16/19 11/16/19 11/16/19 Range/Units 14:57 14:57 Unknown WBC 8.1 (3.8-10.6) k/uL RBC 5.14 (3.80-5.40) m/uL Hgb 14.4 (11.4-16.0) gm/dL Hct 44.9 (34.0-46.0) % MCV 87.3 (80.0-100.0) fL MCH 28.1 (25.0-35.0) pg MCHC 32.1 (31.0-37.0) g/dL RDW 13.4 (11.5-15.5) % Plt Count 326 (150-450) k/uL Neutrophils % 61 % Lymphocytes % 28 % Monocytes % 6 % Eosinophils % 3 % Basophils % 1 % Neutrophils # 4.9 (1.3-7.7) k/uL Lymphocytes # 2.2 (1.0-4.8) k/uL Monocytes # 0.5 (0-1.0) k/uL Eosinophils # 0.2 (0-0.7) k/uL Basophils # 0.1 (0-0.2) k/uL Sodium 140 (137-145) mmol/L Potassium 5.3 H (3.5-5.1) mmol/L Chloride 108 H (98-107) mmol/L Carbon Dioxide 26 (22-30) mmol/L Anion Gap 6 mmol/L BUN 11 (7-17) mg/dL Creatinine 0.71 (0.52-1.04) mg/dL Est GFR (CKD-EPI)AfAm >90 (>60 ml/min/1.73 sqM) Est GFR (CKD-EPI)NonAf >90 (>60 ml/min/1.73 sqM) Glucose 101 H (74-99) mg/dL Calcium 9.6 (8.4-10.2) mg/dL Total Bilirubin 0.5 (0.2-1.3) mg/dL AST 34 (14-36) U/L ALT 27 (4-34) U/L Alkaline Phosphatase 95 (38-126) U/L Troponin I <0.012 (0.000-0.034) ng/mL Total Protein 7.4 (6.3-8.2) g/dL Albumin 4.3 (3.5-5.0) g/dL Lipase 91 (23-300) U/L TSH 0.951 (0.465-4.680) mIU/L Disposition Clinical Impression: Cough, Diarrhea, Generalized weakness Disposition: HOME SELF-CARE Condition: Good Instructions (If sedation given, give patient instructions): Upper Respiratory Infection (ED), Acute Diarrhea (ED) Additional Instructions: Please use medication as discussed. Please follow-up with family doctor in the next 2 days. Please return to emergency room if the symptoms increase or worsen or for any other concerns. Is patient prescribed a controlled substance at d/c from ED?: No Referrals: Emeka French DO [Primary Care Provider] - 1-2 days Time of Disposition: 16:32
[2019-11-16 16:48] VITALS: BP 115/63; PULSE 69; TEMP 98.2
== END 2019-11-16 16:46 | disposition home or self-care (01) ==
LOC: EC 13:59
DX: R05 Cough (principal); R19.7 Diarrhea, unspecified; R53.1 Weakness; I25.119 Atherosclerotic heart disease of native coronary artery with unspecified angina pectoris; M19.90 Unspecified osteoarthritis, unspecified site; K21.9 Gastro-esophageal reflux disease without esophagitis; E07.9 Disorder of thyroid, unspecified; G40.909 Epilepsy, unspecified, not intractable, without status epilepticus; F41.9 Anxiety disorder, unspecified; Z79.82 Long term (current) use of aspirin; Z79.890 Hormone replacement therapy; Z79.899 Other long term (current) drug therapy; Z88.5 Allergy status to narcotic agent; Z88.6 Allergy status to analgesic agent; Z88.1 Allergy status to other antibiotic agents; Z86.73 Personal history of transient ischemic attack (TIA), and cerebral infarction without residual deficits; Z87.891 Personal history of nicotine dependence; Z20.828 Contact with and (suspected) exposure to other viral communicable diseases
CPT/HCPCS: 36415; 93005; 80053; 84443; 83690; 84484; 85025; 71046; 99285; U0003

== ENCOUNTER 2019-12-20 22:25 | Emergency (ER) | payer MEDICARE, OTHER ==
[2019-12-20] MEDS ORDERED: HYDROmorphone 0.5 MG/0.5 ML SYRINGE IVP STA ×2 (22:48→23:40)
--- NOTE | 2019-12-20 22:54 | ED ---
General Adult HPI - General Chief complaint: Back Pain/Injury Stated complaint: Rib Pain Time Seen by Provider: 12/20/19 22:33 Source: patient, RN notes reviewed Mode of arrival: wheelchair Limitations: no limitations - History of Present Illness Initial comments: 64-year-old female with a past medical history of CAD, chest pain, CVA presents to the emergency room for a chief complaint of left-sided rib pain. Patient reports that a few days ago she was leaning against her bench back seat in her car looking under it for an earring. Patient reports that when she leaned she felt a pop and pain in her left anterior chest. States the pain has persisted. She reports that it is lasting longer than previous broken ribs so she became concerned. She states that movement and coughing worsen the pain. Patient has no other complaints at this time including shortness of breath, chest pain, abdominal pain, nausea or vomiting, headache, or visual changes. - Related Data Home Medications Medication Instructions Recorded Confirmed Levothyroxine Sodium [Synthroid] 25 mcg PO DAILY 08/11/13 12/20/19 Primidone [Mysoline] 50 mg PO HS 08/11/13 12/20/19 Zinc 50 mg PO DAILY 09/02/15 12/20/19 Aspirin [Adult Low Dose Aspirin EC] 81 mg PO HS 03/19/19 12/20/19 LORazepam [Ativan] 1 mg PO TID PRN 03/19/19 12/20/19 Loratadine [Claritin] 10 mg PO HS 03/19/19 12/20/19 Calcium Carbonate/Vitamin D3 2 tab PO DAILY 12/20/19 12/20/19 [Calcium 600-Vit D3 200 Tablet] Menthol [Biofreeze] 1 applic TOPICAL DAILY PRN 12/20/19 12/20/19 dronabinoL [Dronabinol] 5 mg PO DAILY 12/20/19 12/20/19 Previous Rx's Medication Instructions Recorded Lidocaine 5% Patch [Lidoderm 5% 1 patch TOPICAL DAILY PRN 5 Days 12/20/19 Patch] #5 patch HYDROcodone/APAP 5-325MG [[place] 1 tab PO Q6HR PRN #10 tab 12/21/19 5-325] Allergies Allergy/AdvReac Type Severity Reaction Status Date / Time codeine Allergy Unknown Verified 12/20/19 23:18 hydrocodone bitartrate Allergy Unknown Verified 12/20/19 23:18 [From Vicodin] ibuprofen Allergy Unknown Verified 12/20/19 23:18 ANTIBIOTICS- ALL OF THEM Allergy Unknown Uncoded 12/20/19 22:32 Review of Systems ROS Statement: Those systems with pertinent positive or pertinent negative responses have been documented in the HPI. ROS Other: All systems not noted in ROS Statement are negative. Past Medical History Past Medical History: Coronary Artery Disease (CAD), Chest Pain / Angina, CVA/T IA, GERD/Reflux, Musculoskeletal Disorder, Neurologic Disorder, Osteoarthritis (OA), Pneumonia, Seizure Disorder, Thyroid Disorder Additional Past Medical History / Comment(s): central pontinemyelinilysis-(cmp), myoclonic jerks, tremors, pt stated 5 cva-lt sided weakness, occ trouble swallowing,anxiety, depression, bipolar disorder, H/O cardiac arrest at 12 year old post Appendectomy.falls, tinnitus,bronchitis, scoliosis, endometerois, uterine fibroids, gout in past, uti, sinus problems, fx to rt ankle,rtand lt wrist, lt elbow History of Any Multi-Drug Resistant Organisms: None Reported Past Surgical History: Appendectomy, Heart Catheterization, Hysterectomy Additional Past Surgical History / Comment(s): 2 uterine suspension then Total abdominal hysterectomy and bilateral sopping oophorectomy, appendectomy at the age of 12 followed by a cardiac arrest, lasik eye sx sophia, d&c,bronchoscopy x3, lt hand sx. Past Anesthesia/Blood Transfusion Reactions: No Reported Reaction Additional Past Anesthesia/Blood Transfusion Reaction / Comment(s): blood transfusions-no reaction Past Psychological History: Anxiety, Bipolar, Depression Smoking Status: Former smoker Past Alcohol Use History: None Reported Past Drug Use History: Marijuana - Past Family History Mother Family Medical History: Diabetes Mellitus Father Family Medical History: Cancer Brother(s) Family Medical History: Coronary Artery Disease (CAD) Sister(s) Family Medical History: No Reported History Daughter(s) Family Medical History: No Reported History General Exam Limitations: no limitations General appearance: alert, in no apparent distress Head exam: Present: atraumatic, normocephalic, normal inspection Eye exam: Present: normal appearance, PERRL, EOMI. Absent: scleral icterus, conjunctival injection, periorbital swelling ENT exam: Present: normal exam, mucous membranes moist Neck exam: Present: normal inspection, full ROM. Absent: tenderness, meningismus, lymphadenopathy Respiratory exam: Present: normal lung sounds bilaterally, chest wall tenderness (Left anterior lower rib margin tenderness.). Absent: respiratory distress, wheezes, rales, rhonchi, stridor Cardiovascular Exam: Present: regular rate, normal rhythm, normal heart sounds. Absent: systolic murmur, diastolic murmur, rubs, gallop, clicks GI/Abdominal exam: Present: soft, normal bowel sounds. Absent: distended, tenderness, guarding, rebound, rigid Extremities exam: Present: normal capillary refill (Radial pulses 2+ in upper extremity bilaterally.) Course Vital Signs 12/20/19 22:27 Temperature 97.5 F L Pulse Rate 67 Respiratory 22 Rate Blood Pressure 102/55 O2 Sat by Pulse 95 Oximetry EKG Findings - EKG Comments: EKG Findings:: Normal sinus rhythm, ventricular rate 69, ND interval 172, QTC 428 Medical Decision Making - Medical Decision Making Vitals are stable. EKG is unremarkable. CBC CMP unremarkable. Troponin is negative. X-ray shows mild pleural reaction. Given history of injury as well as tenderness to the chest wall and pain worsening with movement symptoms are consistent with rib contusion. Patient was given pain medications which did improve her symptoms. Patient will be discharged home with lidocaine patch and norco. She will return here for any worsening symptoms. - Lab Data Result diagrams: 12/20/19 22:56 12/20/19 22:56 Lab Results 12/20/19 12/20/19 12/20/19 Range/Units 22:56 22:56 22:56 WBC 8.5 (3.8-10.6) k/uL RBC 4.64 (3.80-5.40) m/uL Hgb 13.7 (11.4-16.0) gm/dL Hct 42.5 (34.0-46.0) % MCV 91.6 (80.0-100.0) fL MCH 29.6 (25.0-35.0) pg MCHC 32.3 (31.0-37.0) g/dL RDW 13.2 (11.5-15.5) % Plt Count 291 (150-450) k/uL Neutrophils % 47 % Lymphocytes % 34 % Monocytes % 7 % Eosinophils % 7 % Basophils % 2 % Neutrophils # 4.0 (1.3-7.7) k/uL Lymphocytes # 2.9 (1.0-4.8) k/uL Monocytes # 0.6 (0-1.0) k/uL Eosinophils # 0.6 (0-0.7) k/uL Basophils # 0.2 (0-0.2) k/uL PT 9.8 (9.0-12.0) sec INR 0.9 (<1.2) APTT 26.7 (22.0-30.0) sec Sodium 138 (137-145) mmol/L Potassium 4.4 (3.5-5.1) mmol/L Chloride 107 (98-107) mmol/L Carbon Dioxide 28 (22-30) mmol/L Anion Gap 3 mmol/L BUN 16 (7-17) mg/dL Creatinine 0.91 (0.52-1.04) mg/dL Est GFR (CKD-EPI)AfAm 78 (>60 ml/min/1.73 sqM) Est GFR (CKD-EPI)NonAf 68 (>60 ml/min/1.73 sqM) Glucose 98 (74-99) mg/dL Calcium 9.0 (8.4-10.2) mg/dL Magnesium 2.0 (1.6-2.3) mg/dL Total Bilirubin 0.3 (0.2-1.3) mg/dL AST 23 (14-36) U/L ALT 19 (4-34) U/L Alkaline Phosphatase 94 (38-126) U/L Troponin I (0.000-0.034) ng/mL Total Protein 6.5 (6.3-8.2) g/dL Albumin 3.6 (3.5-5.0) g/dL 12/20/19 Range/Units 22:56 WBC (3.8-10.6) k/uL RBC (3.80-5.40) m/uL Hgb (11.4-16.0) gm/dL Hct (34.0-46.0) % MCV (80.0-100.0) fL MCH (25.0-35.0) pg MCHC (31.0-37.0) g/dL RDW (11.5-15.5) % Plt Count (150-450) k/uL Neutrophils % % Lymphocytes % % Monocytes % % Eosinophils % % Basophils % % Neutrophils # (1.3-7.7) k/uL Lymphocytes # (1.0-4.8) k/uL Monocytes # (0-1.0) k/uL Eosinophils # (0-0.7) k/uL Basophils # (0-0.2) k/uL PT (9.0-12.0) sec INR (<1.2) APTT (22.0-30.0) sec Sodium (137-145) mmol/L Potassium (3.5-5.1) mmol/L Chloride (98-107) mmol/L Carbon Dioxide (22-30) mmol/L Anion Gap mmol/L BUN (7-17) mg/dL Creatinine (0.52-1.04) mg/dL Est GFR (CKD-EPI)AfAm (>60 ml/min/1.73 sqM) Est GFR (CKD-EPI)NonAf (>60 ml/min/1.73 sqM) Glucose (74-99) mg/dL Calcium (8.4-10.2) mg/dL Magnesium (1.6-2.3) mg/dL Total Bilirubin (0.2-1.3) mg/dL AST (14-36) U/L ALT (4-34) U/L Alkaline Phosphatase (38-126) U/L Troponin I <0.012 (0.000-0.034) ng/mL Total Protein (6.3-8.2) g/dL Albumin (3.5-5.0) g/dL Disposition Clinical Impression: Rib pain on left side Disposition: HOME SELF-CARE Condition: Good Instructions (If sedation given, give patient instructions): Rib Contusion (ED) Additional Instructions: Please take 10 deep breaths every hour to prevent pneumonia. Take Tylenol 3 for pain. Use lidocaine patches for pain. Apply for 12 hours, remove for 12 hours, and then apply another. Follow-up with your doctor in one to 2 days. Return to the emergency room for any worsening symptoms. Prescriptions: Lidocaine 5% Patch [Lidoderm 5% Patch] 1 patch TOPICAL DAILY PRN 5 Days #5 patch PRN Reason: Pain HYDROcodone/APAP 5-325MG [[place] 5-325] 1 tab PO Q6HR PRN #10 tab PRN Reason: Pain Is patient prescribed a controlled substance at d/c from ED?: Yes When asked, does pt state using other controlled substances?: No If prescribed controlled substance>3 days was MAPS reviewed?: Prescribed <3 Days If opioid is for acute pain is fill amount 7 days or less?: Yes If Rx opioid, was Start Talking consent form obtained?: Yes Referrals: Emeka French DO [Primary Care Provider] - 1-2 days Time of Disposition: 23:54
[2019-12-20 23:03] LABS: Basophils # (A) 0.2 k/uL (0-0.2); Basophils % (A) 2 %; Eosinophils # (A) 0.6 k/uL (0-0.7); Eosinophils % (A) 7 %; HCT 42.5 % (34.0-46.0); HGB 13.7 gm/dL (11.4-16.0); Lymphocytes # (A) 2.9 k/uL (1.0-4.8); Lymphocytes % (A) 34 %; MCH 29.6 pg (25.0-35.0); MCHC 32.3 g/dL (31.0-37.0); MCV 91.6 fL (80.0-100.0); Mean Platelet Volume 6.8; Monocytes # (A) 0.6 k/uL (0-1.0); Monocytes % (A) 7 %; Neutrophils % (A) 47 %; Platelet Count 291 k/uL (150-450); RBC 4.64 m/uL (3.80-5.40); RDW 13.2 % (11.5-15.5); WBC 8.5 k/uL (3.8-10.6)
[2019-12-20 23:14] LABS: INR 0.9 (<1.2); Partial Thromboplastin Time 26.7 sec (22.0-30.0); Prothrombin Time 9.8 sec (9.0-12.0)
--- NOTE | 2019-12-20 23:17 | XR ---
EXAMINATION TYPE: XR ribs LT w pa chest xray DATE OF EXAM: 12/20/2019 COMPARISON: NONE HISTORY: Pain TECHNIQUE: 5 views FINDINGS: There is no heart failure nor confluent pneumonic infiltrate. There is calcified granulomat a in the right lower lobe. I see no pleural effusion or pneumothorax. There is small linear density a t the left lung base. The left ribs appear intact. Left shoulder is intact. There are numerous calcif ied splenic granulomata. IMPRESSION: Old granulomatous disease. Mild pleural reaction and subsegmental atelectasis at the left lung base. No heart failure. Normal heart. No rib fracture seen.
[2019-12-20 23:21] LABS: Albumin 3.6 g/dL (3.5-5.0); Potassium 4.4 mmol/L (3.5-5.1); Total Bilirubin 0.3 mg/dL (0.2-1.3); Total Protein 6.5 g/dL (6.3-8.2)
[2019-12-20] MEDS ORDERED: KETOROLAC 15 MG/ML 1 ML VIAL IVP STA (23:40)
[2019-12-20] MEDS ORDERED: LIDOCAINE 5% PATCH TOPICAL STA (23:40)
[2019-12-21 00:35] VITALS: BP 120/70; PULSE 64; RESP 16; TEMP 98.4
== END 2019-12-21 00:35 | disposition home or self-care (01) ==
LOC: EC 22:25
DX: R07.81 Pleurodynia (principal); R05 Cough; I25.119 Atherosclerotic heart disease of native coronary artery with unspecified angina pectoris; K21.9 Gastro-esophageal reflux disease without esophagitis; G40.909 Epilepsy, unspecified, not intractable, without status epilepticus; E07.9 Disorder of thyroid, unspecified; F41.9 Anxiety disorder, unspecified; F31.9 Bipolar disorder, unspecified; Z79.82 Long term (current) use of aspirin; Z79.899 Other long term (current) drug therapy; Z79.890 Hormone replacement therapy; Z88.5 Allergy status to narcotic agent; Z88.6 Allergy status to analgesic agent; Z88.1 Allergy status to other antibiotic agents; Z86.73 Personal history of transient ischemic attack (TIA), and cerebral infarction without residual deficits; Z86.74 Personal history of sudden cardiac arrest; Z87.891 Personal history of nicotine dependence
CPT/HCPCS: 36415; 93005; 80053; 83735; 84484; 85025; 85610; 85730; 71101; 99284; 96374; 96376; J1170

== ENCOUNTER → 2020-03-29 | Outpatient (CLI) | payer MEDICARE, OTHER ==
--- NOTE | 2020-03-29 17:08 | BD ---
EXAMINATION TYPE: Axial Bone Density DATE OF EXAM: 03/29/2020 COMPARISON: NONE CLINICAL HISTORY: Postmenopausal screening Height: 5 FT 4 IN Weight: 158 FRAX RISK QUESTIONS: Alcohol (3 or more units per day): NO Family History (Parent hip fracture): NO Glucocorticoids (More than 3mos): NO (Ex: prednisone, prednisolone, methylprednisolone, dexamethasone, and hydrocortisone). History of Fracture in Adulthood: YES Secondary Osteoporosis: 1. Type 1 Diabetes: NO 2. Hyperthyroidism: YES 3. Menopause before 45: YES 4. Malnutrition: NO 5. Chronic liver disease: NO Rheumatoid Arthritis: NO Current Tobacco Use: NO RISK FACTORS HISTORY OF: Family History of Osteoporosis: YES Active: YES Diet low in dairy products/other sources of calcium: NO Postmenopausal woman: TOTAL HYSTA GE 29 Take estrogen and/or progesterone medications: NONE Lost more than 2 inches in height since high school: YES MEDICATIONS: Thyroid Medications: YES Which medication: LEVOTHYROXINE How Lon-4 YEARS Additional Medications: ADIVAN, LEVOTHYROXINE, THC PILL,MEDS FOR SEIZURES, ZINC, B12 SHOT, CALCIUM, ASPIRIN, Additional History: PT HAS HAD MANY STROKES AND TIAS EXAM MEASUREMENTS: Bone mineral densitometry was performed using the [employer] System. Bone mineral density as measured about the Lumbar spine is: ----- L1-L4(G/cm2): 0.722 T Score Values are as follows: ----- L2: -4.2 ----- L3: -4.6 ----- L4: -3.2 ----- L1-L4: -3.8 BASELINE Bone mineral density about the R hip (g/cm2): 0.680 Bone mineral density about the L hip (g/cm2): 0.656 T Score values are as follows: -----R Neck: -2.6 -----L Neck: -2.7 -----R Total: -2.5 -----L Total: -2.5 BASELINE IMPRESSION: Osteoporosis (T Score less than -2.5). There is increased fracture risk and therapy is usually indicated based on age. Re-Screen 1-2 years. NOTE: T-SCORE=SD OF THE YOUNG ADULT MEAN.
--- NOTE | 2020-03-31 08:47 | MM ---
Reason for exam: screening (asymptomatic). Last mammogram was performed 18 years and 4 months ago. History: Patient is postmenopausal. Family history of breast cancer. Physical Findings: A clinical breast exam by your physician is recommended on an annual basis and results should be correlated with mammographic findings. MG 3D Screening Mammo W/Cad Bilateral CC and MLO view(s) were taken. No prior studies available for comparison. There are scattered fibroglandular densities. No significant changes when compared with prior studies. ASSESSMENT: Benign, BI-RAD 2 RECOMMENDATION: Routine screening mammogram of both breasts in 1 year.
== END ==
LOC: RADMAMWWP 12:40
PROVIDERS: ATTEND Family Medicine
DX: Z12.31 Encounter for screening mammogram for malignant neoplasm of breast (principal); M81.0 Age-related osteoporosis without current pathological fracture
CPT/HCPCS: 77063; 77067; 77080

== ENCOUNTER 2020-03-31 20:25 | Emergency (ER) | payer MEDICARE, OTHER ==
[2020-03-31] MEDS ORDERED: ONDANSETRON 4 MG/2 ML VIAL IVP STA (20:51)
[2020-03-31] MEDS ORDERED: SODIUM CHLORIDE 0.9% 1,000 ML IV STA (20:51)
[2020-03-31] MEDS ORDERED: HYDROmorphone 1 MG/ML 1 ML SYRINGE IVP STA (20:51)
[2020-03-31] MEDS ORDERED: LORazepam 2 MG/ML INJ IV STA (21:00)
--- NOTE | 2020-03-31 21:03 | ED ---
Neck Injury/Pain HPI - General Chief Complaint: Neck Pain/Injury Stated Complaint: neck injury/seizure Source: RN notes reviewed Mode of arrival: wheelchair Limitations: no limitations - History of Present Illness Initial Comments: Patient is a 64-year-old female presents to emergency department with her complaining of increased neck pain after having a seizure. She noted that she does have a history of seizures, mild tonic clonic type in nature. She'll that they usually lasting from 5-30 minutes. She is taking medication to help control his seizures. She noted that she does have a herniated disc between C4-C5. And that this last seizure she had kind of made her have a whiplash-type movement causing her neck pain to increase. So she decided come to the emergency department to get evaluated she noted the pain is about 8 out of 10 currently that is constant and unrelenting with out relief. She noted that she can take Dilaudid as well as worked in the past. She did note that she has many ALLERGIES to many medications. She denied any shortness of breath headache nausea vomiting diarrhea constipation fever fatigue chills Patient did say that she has a history of having 10 strokes, heart catheterization recently. She also has a history of central pontine myelinolysis - Related Data Home Medications Medication Instructions Recorded Confirmed Levothyroxine Sodium [Synthroid] 25 mcg PO DAILY 08/11/13 03/31/20 Primidone [Mysoline] 50 mg PO BID 08/11/13 03/31/20 Zinc 50 mg PO DAILY 09/02/15 03/31/20 Aspirin [Adult Low Dose Aspirin EC] 81 mg PO DAILY 03/19/19 03/31/20 LORazepam [Ativan] 1 mg PO TID PRN 03/19/19 03/31/20 dronabinoL [Dronabinol] 5 mg PO DAILY 12/20/19 03/31/20 Biotin 5,000 mcg PO DAILY 03/31/20 03/31/20 Calcium Carbonate [Calcium] 1,200 mg PO DAILY 03/31/20 03/31/20 Cyanocobalamin (Vitamin B-12) 1,000 mcg PO QMONTHLY 03/31/20 03/31/20 [Vitamin B-12] Fluticasone Nasal [place] [Flonase 1 spray EA NOSTRIL DAILY 03/31/20 03/31/20 Nasal [place]] Magnesium 250 mg PO DAILY 03/31/20 03/31/20 Multivitamins, Thera [Multivitamin 1 tab PO DAILY 03/31/20 03/31/20 (formulary)] Pyridoxine HCl (Vitamin B6) 100 mg PO DAILY 03/31/20 03/31/20 [Vitamin B-6] Previous Rx's Medication Instructions Recorded HYDROcodone/APAP 5-325MG [[place] 1 tab PO Q6HR PRN #10 tab 12/21/19 5-325] Allergies Allergy/AdvReac Type Severity Reaction Status Date / Time codeine Allergy Unknown Verified 03/31/20 22:11 hydrocodone bitartrate Allergy Unknown Verified 03/31/20 22:11 [From Vicodin] ibuprofen Allergy Unknown Verified 03/31/20 22:11 ANTIBIOTICS- ALL OF THEM Allergy Unknown Uncoded 12/20/19 22:32 Review of Systems ROS Statement: Those systems with pertinent positive or pertinent negative responses have been documented in the HPI. ROS Other: All systems not noted in ROS Statement are negative. Past Medical History Past Medical History: Coronary Artery Disease (CAD), Chest Pain / Angina, CVA/TIA, GERD/Reflux, Musculoskeletal Disorder, Neurologic Disorder, Osteoarthritis (OA), Pneumonia, Seizure Disorder, Thyroid Disorder Additional Past Medical History / Comment(s): central pontinemyelinilysis-(cmp), myoclonic jerks, tremors, pt stated 5 cva-lt sided weakness, occ trouble swallowing,anxiety, depression, bipolar disorder, H/O cardiac arrest at 12 year old post Appendectomy.falls, tinnitus,bronchitis, scoliosis, endometerois, uterine fibroids, gout in past, uti, sinus problems, fx to rt ankle,rtand lt wrist, lt elbow History of Any Multi-Drug Resistant Organisms: None Reported Past Surgical History: Appendectomy, Heart Catheterization, Hysterectomy Additional Past Surgical History / Comment(s): 2 uterine suspension then Total abdominal hysterectomy and bilateral sopping oophorectomy, appendectomy at the age of 12 followed by a cardiac arrest, lasik eye sx sophia, d&c,bronchoscopy x3, lt hand sx. Past Anesthesia/Blood Transfusion Reactions: No Reported Reaction Additional Past Anesthesia/Blood Transfusion Reaction / Comment(s): blood transfusions-no reaction Past Psychological History: Anxiety, Bipolar, Depression Smoking Status: Former smoker Past Alcohol Use History: None Reported Past Drug Use History: Marijuana - Past Family History Mother Family Medical History: Diabetes Mellitus Father Family Medical History: Cancer Brother(s) Family Medical History: Coronary Artery Disease (CAD) Sister(s) Family Medical History: No Reported History Daughter(s) Family Medical History: No Reported History General Exam Limitations: no limitations, physical limitation General appearance: alert, in no apparent distress Head exam: Present: atraumatic, normocephalic, normal inspection Eye exam: Present: normal appearance, PERRL, EOMI. Absent: scleral icterus, conjunctival injection, periorbital swelling ENT exam: Present: normal exam, mucous membranes moist Neck exam: Present: normal inspection, other (C-collar on). Absent: tenderness, meningismus, lymphadenopathy Respiratory exam: Present: normal lung sounds bilaterally. Absent: respiratory distress, wheezes, rales, rhonchi, stridor Cardiovascular Exam: Present: regular rate, normal rhythm, normal heart sounds. Absent: systolic murmur, diastolic murmur, rubs, gallop, clicks GI/Abdominal exam: Present: soft, normal bowel sounds. Absent: distended, tenderness, guarding, rebound, rigid Extremities exam: Present: normal inspection, full ROM, normal capillary refill. Absent: tenderness, pedal edema, joint swelling, calf tenderness Back exam: Present: normal inspection Neurological exam: Present: alert, oriented X3, CN II-XII intact Psychiatric exam: Present: normal affect, normal mood Skin exam: Present: warm, dry, intact, normal color. Absent: rash Course Vital Signs 03/31/20 03/31/20 20:32 22:11 Temperature 98.4 F Pulse Rate 79 82 Respiratory 18 16 Rate Blood Pressure 156/78 117/68 O2 Sat by Pulse 97 95 Oximetry Medical Decision Making - Medical Decision Making 64-year-old female status post myoclonic seizure coming in with increased neck pain. Basic labs, Ativan, Dilaudid, EKG, CT of the cervical spine ordered. Labs unremarkable. Case discussed with Dr. Deluna, was decided the patient to discharge home. - Lab Data Result diagrams: 03/31/20 21:16 03/31/20 21:16 Lab Results 03/31/20 03/31/20 Range/Units 21:16 21:16 WBC 9.0 (3.8-10.6) k/uL RBC 4.82 (3.80-5.40) m/uL Hgb 14.3 (11.4-16.0) gm/dL Hct 43.1 (34.0-46.0) % MCV 89.4 (80.0-100.0) fL MCH 29.7 (25.0-35.0) pg MCHC 33.3 (31.0-37.0) g/dL RDW 13.6 (11.5-15.5) % Plt Count 316 (150-450) k/uL MPV 6.5 Neutrophils % 52 % Lymphocytes % 32 % Monocytes % 6 % Eosinophils % 8 % Basophils % 1 % Neutrophils # 4.7 (1.3-7.7) k/uL Lymphocytes # 2.9 (1.0-4.8) k/uL Monocytes # 0.5 (0-1.0) k/uL Eosinophils # 0.7 (0-0.7) k/uL Basophils # 0.1 (0-0.2) k/uL Sodium 138 (137-145) mmol/L Potassium 4.3 (3.5-5.1) mmol/L Chloride 105 (98-107) mmol/L Carbon Dioxide 28 (22-30) mmol/L Anion Gap 5 mmol/L BUN 16 (7-17) mg/dL Creatinine 0.72 (0.52-1.04) mg/dL Est GFR (CKD-EPI)AfAm >90 (>60 ml/min/1.73 sqM) Est GFR (CKD-EPI)NonAf >90 (>60 ml/min/1.73 sqM) Glucose 99 (74-99) mg/dL Calcium 9.1 (8.4-10.2) mg/dL Total Bilirubin 0.4 (0.2-1.3) mg/dL AST 35 (14-36) U/L ALT 38 H (4-34) U/L Alkaline Phosphatase 101 (38-126) U/L Total Protein 7.0 (6.3-8.2) g/dL Albumin 3.9 (3.5-5.0) g/dL - EKG Data -: EKG Interpreted by [facility] EKG shows normal: sinus rhythm EKG Comments: Ventricular rate 68 bpm, TN interval 174 ms, QRS duration 92 ms, QT/QTc 424/450 ms, PRT axes 76/82/74. Normal sinus rhythm, normal ECG. - Radiology Data Radiology results: report reviewed, image reviewed Cervical spine appears normal for age. No change. Disposition Clinical Impression: Myoclonic seizure, Neck pain Disposition: HOME SELF-CARE Instructions (If sedation given, give patient instructions): Cervical Strain (ED), Cervical Sprain (ED) Additional Instructions: Please return to the Emergency Department if symptoms worsen or any other concerns. Follow-up primary care 1-2 days. Continue to take prescription medications as directed. Is patient prescribed a controlled substance at d/c from ED?: No Referrals: Savanah Prather MD [Primary Care Provider] - 1-2 days Time of Disposition: 23:12
[2020-03-31 21:25] LABS: Basophils # (A) 0.1 k/uL (0-0.2); Basophils % (A) 1 %; Eosinophils # (A) 0.7 k/uL (0-0.7); Eosinophils % (A) 8 %; HCT 43.1 % (34.0-46.0); HGB 14.3 gm/dL (11.4-16.0); Lymphocytes # (A) 2.9 k/uL (1.0-4.8); Lymphocytes % (A) 32 %; MCH 29.7 pg (25.0-35.0); MCHC 33.3 g/dL (31.0-37.0); MCV 89.4 fL (80.0-100.0); Mean Platelet Volume 6.5; Monocytes # (A) 0.5 k/uL (0-1.0); Monocytes % (A) 6 %; Neutrophils # (A) 4.7 k/uL (1.3-7.7); Neutrophils % (A) 52 %; Platelet Count 316 k/uL (150-450); RBC 4.82 m/uL (3.80-5.40); RDW 13.6 % (11.5-15.5)
[2020-03-31 21:34] LABS: ALT 38 U/L (4-34); AST 35 U/L (14-36); African American GFR (CKD) >90 (>60 ml/min/1.73 sqM); Albumin 3.9 g/dL (3.5-5.0); Alkaline Phosphatase 101 U/L (38-126); Anion Gap 5 mmol/L; Blood Urea Nitrogen 16 mg/dL (7-17); Calcium 9.1 mg/dL (8.4-10.2); Carbon Dioxide 28 mmol/L (22-30); Chloride 105 mmol/L (98-107); Glucose 99 mg/dL (74-99); Non-African American GFR(CKD) >90 (>60 ml/min/1.73 sqM); Potassium 4.3 mmol/L (3.5-5.1); Sodium 138 mmol/L (137-145); Total Bilirubin 0.4 mg/dL (0.2-1.3)
[2020-03-31 22:11] VITALS: RESP 16
--- NOTE | 2020-03-31 22:52 | CT ---
EXAMINATION TYPE: CT cervical spine wo con DATE OF EXAM: 03/31/2020 COMPARISON: 09/02/2015 HISTORY: Neck pain post seizure. CT DLP: 321.9 mGycm Automated exposure control for dose reduction was used. Images obtained from the skull base to T1 vertebra without contrast. The cervical vertebra have normal spacing and alignment. Posterior elements are intact. Facet joints are intact. Prevertebral soft tissues appear normal. The skull base is intact. There is normal aerati on of the mastoid sinuses. I see no bony destructive process. Facet joints are intact. IMPRESSION: Cervical spine appears normal for age. No change.
[2020-03-31 23:10] LABS: Appearance,Urine Clear (Clear); Bacteria,Urine Rare /hpf; Bilirubin,Urine Negative (Negative); Blood,Urine Moderate (Negative); Color,Urine Yellow; Glucose,Urine (UA) Negative (Negative); Ketones,Urine Negative (Negative); Leukocyte Esterase,Urine Negative (Negative); Mucus,Urine Rare /hpf; Nitrite,Urine Negative (Negative); PH, Urine 5.5 (5.0-8.0); Protein,Urine Negative (Negative); RBC,Urine 4 /hpf (0-5); Specific Gravity,Urine 1.013 (1.001-1.035); Squamous Epithelial Cell,Urine 2 /hpf (0-4); Urobilinogen,Urine <2.0 mg/dL (<2.0); WBC,Urine 1 /hpf (0-5)
[2020-03-31 23:35] VITALS: BP 117/84; PULSE 85; TEMP 98.5
== END 2020-03-31 23:25 | disposition home or self-care (01) ==
LOC: EC 20:25
DX: M54.2 Cervicalgia (principal); G40.909 Epilepsy, unspecified, not intractable, without status epilepticus; I25.119 Atherosclerotic heart disease of native coronary artery with unspecified angina pectoris; K21.9 Gastro-esophageal reflux disease without esophagitis; E07.9 Disorder of thyroid, unspecified; F41.9 Anxiety disorder, unspecified; Z79.890 Hormone replacement therapy; Z79.82 Long term (current) use of aspirin; Z79.51 Long term (current) use of inhaled steroids; Z79.899 Other long term (current) drug therapy; Z88.5 Allergy status to narcotic agent; Z88.6 Allergy status to analgesic agent; Z88.1 Allergy status to other antibiotic agents; Z86.73 Personal history of transient ischemic attack (TIA), and cerebral infarction without residual deficits; Z87.891 Personal history of nicotine dependence
CPT/HCPCS: 36415; 93005; 80053; 85025; 81001; 72125; 99284; 96374; 96375 ×2; 96361; J2060; J2405; J1170

== ENCOUNTER 2020-05-10 23:42 | Emergency (ER) | payer MEDICARE, OTHER ==
[2020-05-11 00:18] VITALS: BP 111/70; PULSE 88; RESP 18; TEMP 97.8
--- NOTE | 2020-05-11 01:41 | XR ---
EXAM: XR Right Hand Complete, 3 or More Views CLINICAL HISTORY: ITS.REASON XR Reason: pain TECHNIQUE: Frontal, lateral and oblique views of the right hand. COMPARISON: No relevant prior studies available. FINDINGS: Bones/joints: Unremarkable. No acute fracture. No dislocation. Mild joint space narrowing of the distal interphalangeal joints of the first through fifth digits. Soft tissues: Unremarkable. No radiopaque foreign body. IMPRESSION: No acute fracture or traumatic malalignment to the right hand.
--- NOTE | 2020-05-11 02:05 | ED ---
General Adult HPI - General Chief complaint: Extremity Injury, Upper Stated complaint: Right pinky injury Time Seen by Provider: 05/11/20 01:31 Source: patient Mode of arrival: ambulatory Limitations: no limitations - History of Present Illness Initial comments: 64-year-old female with a complicated past medical history presents to the emergency room for right fifth digit pain. Patient states her dog ran into it and she jammed it. States that it is painful to flex. Patient denies any other injuries.Patient has no other complaints at this time including shortness of breath, chest pain, abdominal pain, nausea or vomiting, headache, or visual changes. - Related Data Home Medications Medication Instructions Recorded Confirmed Levothyroxine Sodium [Synthroid] 25 mcg PO DAILY 08/11/13 03/31/20 Primidone [Mysoline] 50 mg PO BID 08/11/13 03/31/20 Zinc 50 mg PO DAILY 09/02/15 03/31/20 Aspirin [Adult Low Dose Aspirin EC] 81 mg PO DAILY 03/19/19 03/31/20 LORazepam [Ativan] 1 mg PO TID PRN 03/19/19 03/31/20 dronabinoL [Dronabinol] 5 mg PO DAILY 12/20/19 03/31/20 Biotin 5,000 mcg PO DAILY 03/31/20 03/31/20 Calcium Carbonate [Calcium] 1,200 mg PO DAILY 03/31/20 03/31/20 Cyanocobalamin (Vitamin B-12) 1,000 mcg PO QMONTHLY 03/31/20 03/31/20 [Vitamin B-12] Fluticasone Nasal [place] [Flonase 1 spray EA NOSTRIL DAILY 03/31/20 03/31/20 Nasal [place]] Magnesium 250 mg PO DAILY 03/31/20 03/31/20 Multivitamins, Thera [Multivitamin 1 tab PO DAILY 03/31/20 03/31/20 (formulary)] Pyridoxine HCl (Vitamin B6) 100 mg PO DAILY 03/31/20 03/31/20 [Vitamin B-6] Previous Rx's Medication Instructions Recorded HYDROcodone/APAP 5-325MG [[place] 1 tab PO Q6HR PRN #10 tab 12/21/19 5-325] Allergies Allergy/AdvReac Type Severity Reaction Status Date / Time codeine Allergy Unknown Verified 05/11/20 00:18 hydrocodone bitartrate Allergy Unknown Verified 05/11/20 00:18 [From Vicodin] ibuprofen Allergy Unknown Verified 05/11/20 00:18 ANTIBIOTICS- ALL OF THEM Allergy Unknown Uncoded 05/11/20 00:18 Review of Systems ROS Statement: Those systems with pertinent positive or pertinent negative responses have been documented in the HPI. ROS Other: All systems not noted in ROS Statement are negative. Past Medical History Past Medical History: Coronary Artery Disease (CAD), Chest Pain / Angina, CVA /TIA, GERD/Reflux, Musculoskeletal Disorder, Neurologic Disorder, Osteoarthritis (OA), Pneumonia, Seizure Disorder, Thyroid Disorder Additional Past Medical History / Comment(s): central pontinemyelinilysis-(cmp), myoclonic jerks, tremors, pt stated 5 cva-lt sided weakness, occ trouble swallowing,anxiety, depression, bipolar disorder, H/O cardiac arrest at 12 year old post Appendectomy.falls, tinnitus,bronchitis, scoliosis, endometerois, uterine fibroids, gout in past, uti, sinus problems, fx to rt ankle,rtand lt wrist, lt elbow History of Any Multi-Drug Resistant Organisms: None Reported Past Surgical History: Appendectomy, Heart Catheterization, Hysterectomy Additional Past Surgical History / Comment(s): 2 uterine suspension then Total abdominal hysterectomy and bilateral sopping oophorectomy, appendectomy at the age of 12 followed by a cardiac arrest, lasik eye sx sophia, d&c,bronchoscopy x3, lt hand sx. Past Anesthesia/Blood Transfusion Reactions: No Reported Reaction Additional Past Anesthesia/Blood Transfusion Reaction / Comment(s): blood transfusions-no reaction Past Psychological History: Anxiety, Bipolar, Depression Smoking Status: Former smoker Past Alcohol Use History: None Reported Past Drug Use History: Marijuana - Past Family History Mother Family Medical History: Diabetes Mellitus Father Family Medical History: Cancer Brother(s) Family Medical History: Coronary Artery Disease (CAD) Sister(s) Family Medical History: No Reported History Daughter(s) Family Medical History: No Reported History General Exam Limitations: no limitations General appearance: alert, in no apparent distress Head exam: Present: atraumatic, normocephalic, normal inspection Eye exam: Present: normal appearance, PERRL, EOMI. Absent: scleral icterus, conjunctival injection, periorbital swelling ENT exam: Present: normal exam, mucous membranes moist Neck exam: Present: normal inspection, full ROM. Absent: tenderness, meningismus, lymphadenopathy Respiratory exam: Present: normal lung sounds bilaterally. Absent: respiratory distress, wheezes, rales, rhonchi, stridor Cardiovascular Exam: Present: regular rate, normal rhythm, normal heart sounds. Absent: systolic murmur, diastolic murmur, rubs, gallop, clicks Extremities exam: Present: full ROM (Full range of motion of the right fifth digit.), tenderness (generalized tenderness of the right fifth digit.), normal capillary refill (cap refill < 2 seconds R 5th digit), other (no ecchymosis or edema) Course Vital Signs 05/11/20 00:15 Temperature 97.8 F Pulse Rate 88 Respiratory 18 Rate Blood Pressure 111/70 O2 Sat by Pulse 96 Oximetry Medical Decision Making - Medical Decision Making Vitals are stable. HPI physical exam as documented. Xray shows no acute fracture or malalignment. At this time patient will be discharged home to foll ow up with primary care. She'll return here for any worsening symptoms. Disposition Clinical Impression: Finger injury Disposition: HOME SELF-CARE Condition: Good Instructions (If sedation given, give patient instructions): Finger Sprain (ED) Additional Instructions: Please take Motrin and Tylenol for pain. You may rah tape the finger for comfort. Please follow-up with your doctor in one to 2 days. Return to the emergency room for any worsening symptoms. Is patient prescribed a controlled substance at d/c from ED?: No Referrals: Savanah Prather MD [Primary Care Provider] - 1-2 days Time of Disposition: 02:03
== END 2020-05-11 02:19 | disposition home or self-care (01) ==
LOC: EC 23:42
DX: S69.91XA Unspecified injury of right wrist, hand and finger(s), initial encounter (principal); I25.119 Atherosclerotic heart disease of native coronary artery with unspecified angina pectoris; E07.9 Disorder of thyroid, unspecified; K21.9 Gastro-esophageal reflux disease without esophagitis; F41.9 Anxiety disorder, unspecified; F31.9 Bipolar disorder, unspecified; G40.909 Epilepsy, unspecified, not intractable, without status epilepticus; Z79.890 Hormone replacement therapy; Z79.82 Long term (current) use of aspirin; Z79.899 Other long term (current) drug therapy; Z79.51 Long term (current) use of inhaled steroids; Z88.5 Allergy status to narcotic agent; Z88.1 Allergy status to other antibiotic agents; Z86.73 Personal history of transient ischemic attack (TIA), and cerebral infarction without residual deficits; Z87.891 Personal history of nicotine dependence; Z90.722 Acquired absence of ovaries, bilateral; W54.8XXA Other contact with dog, initial encounter
CPT/HCPCS: 99283

== ENCOUNTER 2020-06-03 08:58 | Day surgery (SDC) | payer MEDICARE, OTHER ==
[2020-05-31 11:05] VITALS: BMI 25.8
--- NOTE | 2020-06-03 08:28 | P.GSHP ---
History of Present Illness H&P Date: 06/03/20 CHIEF COMPLAINT: GERD and colon screen HISTORY OF PRESENT ILLNESS: The patient is a 64-year-old female who presents with gastroesophageal reflux disease and need for colon screen. Upper and lower endoscopy were offered for further evaluation and management. PAST MEDICAL HISTORY: Please see list. PAST SURGICAL HISTORY: Please see list. MEDICATIONS: Please see list. ALLERGIES: Please see list. SOCIAL HISTORY: No illicit drug use FAMILY HISTORY: No reports of Crohn disease or ulcerative colitis. REVIEW OF ORGAN SYSTEMS: CONSTITUTIONAL: No reports of fevers or chills. GI: Denies any blood in stools or constipation. PHYSICAL EXAM: VITAL SIGNS: Stable GENERAL: Well-developed pleasant in no acute distress. HEENT: No scleral icterus. Extraocular movements grossly intact. Moist buccal mucosa. NECK: Supple without lymphadenopathy. CHEST: Unlabored respirations. Equal bilateral excursions. CARDIOVASCULAR: Regular rate and rhythm. Distal 2+ pulses. ABDOMEN: Soft, nondistended. MUSCULOSKELETAL: No clubbing, cyanosis, or edema. ASSESSMENT: 1. Gastroesophageal reflux disease 2. Colon screen. PLAN: 1. Recommend proceeding with an upper and lower endoscopy Past Medical History Past Medical History: Coronary Artery Disease (CAD), Chest Pain / Angina, CVA/TIA, GERD/Reflux, Musculoskeletal Disorder, Neurologic Disorder, Osteoarthritis (OA), Pneumonia, Seizure Disorder, Thyroid Disorder Additional Past Medical History / Comment(s): received both Moderna Covid Vaccines,central pontinemyelinilysis-(cpm), myoclonic jerks a form of seizures frequestly occurs, tremors, pt stated 10 cva-lt sided weakness, occ trouble swallowing,, H/O cardiac arrest at 12 year old post Appendectomy-1967.falls, tinnitus,bronchitis, scoliosis, endometerois, uterine fibroids, gout in past, uti, sinus problems, fx to rt ankle,rtand lt wrist, lt elbow,8 ribs History of Any Multi-Drug Resistant Organisms: None Reported Past Surgical History: Appendectomy, Heart Catheterization, Hysterectomy Additional Past Surgical History / Comment(s): 2 uterine suspension then Total abdominal hysterectomy, lasik eye sx sophia, d&c,bronchoscopy x3, lt hand sx. Past Anesthesia/Blood Transfusion Reactions: No Reported Reaction Additional Past Anesthesia/Blood Transfusion Reaction / Comment(s): blood tr ansfusions-no reaction Smoking Status: Former smoker - Past Family History Mother Family Medical History: Diabetes Mellitus Father Family Medical History: Cancer Brother(s) Family Medical History: Coronary Artery Disease (CAD) Sister(s) Family Medical History: No Reported History Daughter(s) Family Medical History: No Reported History Medications and Allergies Home Medications Medication Instructions Recorded Confirmed Type Levothyroxine Sodium [Synthroid] 25 mcg PO QAM 08/11/13 05/31/20 History Primidone [Mysoline] 50 mg PO BID 08/11/13 05/31/20 History Zinc 50 mg PO DAILY 09/02/15 05/31/20 History Aspirin [Adult Low Dose Aspirin EC] 81 mg PO DAILY 03/19/19 05/31/20 History LORazepam [Ativan] 1 mg PO TID PRN 03/19/19 05/31/20 History Biotin 5,000 mcg PO DAILY 03/31/20 05/31/20 History Calcium Carbonate [Calcium] 1,200 mg PO DAILY 03/31/20 05/31/20 History Cyanocobalamin (Vitamin B-12) 1,000 mcg PO QMONTHLY 03/31/20 05/31/20 History [Vitamin B-12] Magnesium 400 mg PO DAILY 03/31/20 05/31/20 History Multivitamins, Thera [Multivitamin 1 tab PO DAILY 03/31/20 05/31/20 History (formulary)] Pyridoxine HCl (Vitamin B6) 100 mg PO DAILY 03/31/20 05/31/20 History [Vitamin B-6] Cetirizine HCl [Zyrtec] 10 mg PO DAILY 05/31/20 05/31/20 History Allergies Allergy/AdvReac Type Severity Reaction Status Date / Time codeine Allergy Unknown Verified 05/31/20 10:45 erythromycin base Allergy Rash/Hives Verified 05/31/20 10:45 [From E-Mycin] hydrocodone bitartrate Allergy Unknown Verified 05/31/20 10:45 [From Vicodin] ibuprofen Allergy FLUSHED Verified 05/31/20 10:45 FEELING ACROSS UPPER CHEST Penicillins Allergy hallucinati Verified 05/31/20 10:45 ons,hives Tetracyclines Allergy Rash/Hives Verified 05/31/20 10:45 plastic bandaids Allergy welts on Uncoded 05/31/20 11:05 skin
[~2020-06-03 08:58] MED LIST changes: -ACETAMINOPHEN TAB 500 MG TAB PO STA; -DEXAMETHASONE SOD PHOSPHATE 10 MG/ML 1 ML VIAL IV ONE; -HYDROmorphone 0.5 MG/0.5 ML SYRINGE IVP PRN; -LIDOCAINE 1% 20 ML VIAL (10MG/ML) FOR IV START INTRADERMA PRN; -LIDOCAINE 1%-EPI 1:100,000 20 ML VIAL SQ ONE; -MIDAZOLAM 2 MG/2 ML VIAL IV ONE; -MIDAZOLAM 2 MG/2 ML VIAL ONE; -ONDANSETRON 4 MG/2 ML VIAL IVP ONE; -PROPOFOL 10 MG/ML 20 ML VIAL IV ONE; -Pre Op ABX Message 1 EACH MISC MISCELLANE ONE; -SCOPOLAMINE 1.5MG/72HR PATCH TRANSDERM ONE; -diphenhydrAMINE 50 MG/ML 1 ML VIAL ONE; -fentaNYL (PF) 50 MCG/ML 2 ML AMP ONE
[2020-06-03 09:23] VITALS: TEMP 97.3
[2020-06-03] MEDS ORDERED: LIDOCAINE 1% (10MG/ML) FOR IV START INTRADERMA ONE (09:39)
[2020-06-03] MEDS ORDERED: LIDOCAINE 1% INJ 10MG/ML (20 ML MDV) ONE (10:20)
[2020-06-03] MEDS ORDERED: PROPOFOL 10 MG/ML 20 ML VIAL IV ONE (10:20)
--- NOTE | 2020-06-03 10:39 | P.PCN ---
Date of Procedure: 06/03/20 Description of Procedure: PREOPERATIVE DIAGNOSIS: Gastrointestinal bleeding POSTOPERATIVE DIAGNOSIS: Acute gastritis with bleeding Acute gastric ulcer bleeding Diaphragmatic hiatal hernia Gastroesophageal reflux disease OPERATION: Esophagogastroduodenoscopy with biopsies along antrum. SURGEON: Daniela Nicole MD ANESTHESIA: MAC. INDICATIONS: The patient is a 62-year-old female who presents with gastrointestinal bleeding with melena. Benefits and risks of the procedure were described. Informed c onsent was obtained. DESCRIPTION: The patient was brought into the endoscopy suite and laid in the left lateral decubitus position. An Olympus gastroscope was passed along the posterior oropharynx down to the distal esophagus where the squamocolumnar junction was encountered at 35 cm from the incisors. The stomach was entered and no bile reflux was found. Additional findings are listed below. Biopsies with cold forceps were obtained of the antrum. The first through third portion of the duodenum was examined and unremarkable. Retroflexion of the scope confirmed Hill grade 2 lower esophageal valve. The squamocolumnar junction demonstrated LA grade B erosive esophagitis. The stomach was desufflated. The patient tolerated the procedure well. FINDINGS: Squamocolumnar junction 35 cm from the incisors. Diaphragmatic hiatus at 37 cm. Hiatal hernia, 2 cm Hill grade 2 lower esophageal valve. LA grade B erosive esophagitis. No active duodenitis. Chronic gastritis with recent bleed Acute gastric ulcers along antrum with bleeding RECOMMENDATIONS: 1. Discontinue NSAIDs 2. Omeprazole and Carafate for 2-4 weeks Additional CC's: Savanah Prather
--- NOTE | 2020-06-03 11:00 | P.PCN ---
Date of Procedure: 06/03/20 Description of Procedure: PREOPERATIVE DIAGNOSIS: Gastrointestinal bleeding with melena POSTOPERATIVE DIAGNOSIS: Gastrointestinal bleeding with melena Internal/external hemorrhoids, grade 3 OPERATION: Colonoscopy to the cecum, ileocecal valve and appendiceal orifice. SURGEON: Daniela Nicole MD. ANESTHESIA: MAC. INDICATIONS: The patient is a 64-year-old female who presents with gastrointestinal bleeding. Benefits and risks were described and informed consent was obtained. DESCRIPTION OF PROCEDURE: The patient had undergone Sutab prep. The patient had been brought into the operating room and laid in the left lateral decubitus position. After adequate intravenous sedation, the rectum was examined with 2% lidocaine jelly. External hemorrhoids were encountered. The rectal tone was within normal limits. No lesions were palpated in the rectal vault. An Olympus colonoscope was advanced until the cecum, ileocecal valve and appendiceal orifice were clearly viewed. The prep was excellent. No scattered diverticulosis was encountered. No colonic polyps were found. No evidence of focal colitis was found. Retroflexion of the scope demonstrated grade 3 internal hemorrhoids without active bleeding or inflammation. The colon was desufflated. The patient had tolerated the procedure well. Withdrawal time was over 6 minutes. FINDINGS: Aronchick preparation quality scale 1 (1-5) Internal hemorrhoids, grade 3 External prolapsed hemorrhoids, grade 3 No arteriovenous malformations. No adenomatous polyps. No focal colitis. RECOMMENDATIONS: Lower endoscopy in 10 years, 2030 Plan - Discharge Summary Discharge Rx Participant: No New Discharge Prescriptions: New Omeprazole [PriLOSEC] 40 mg PO DAILY #14 cap Continue Primidone [Mysoline] 50 mg PO BID Levothyroxine Sodium [Synthroid] 25 mcg PO QAM Zinc 50 mg PO DAILY LORazepam [Ativan] 1 mg PO TID PRN PRN Reason: Anxiety Aspirin [Adult Low Dose Aspirin EC] 81 mg PO DAILY Multivitamins, Thera [Multivitamin (formulary)] 1 tab PO DAILY Calcium Carbonate [Calcium] 1,200 mg PO DAILY Biotin 5,000 mcg PO DAILY Cyanocobalamin (Vitamin B-12) [Vitamin B-12] 1,000 mcg PO QMONTHLY Pyridoxine HCl (Vitamin B6) [Vitamin B-6] 100 mg PO DAILY Magnesium 400 mg PO DAILY Cetirizine HCl [Zyrtec] 10 mg PO DAILY Discharge Medication List Levothyroxine Sodium [Synthroid] 25 mcg PO QAM 08/11/13 [History] Primidone [Mysoline] 50 mg PO BID 08/11/13 [History] Zinc 50 mg PO DAILY 09/02/15 [History] Aspirin [Adult Low Dose Aspirin EC] 81 mg PO DAILY 03/19/19 [History] LORazepam [Ativan] 1 mg PO TID PRN 03/19/19 [History] Biotin 5,000 mcg PO DAILY 03/31/20 [History] Calcium Carbonate [Calcium] 1,200 mg PO DAILY 03/31/20 [History] Cyanocobalamin (Vitamin B-12) [Vitamin B-12] 1,000 mcg PO QMONTHLY 03/31/20 [History] Magnesium 400 mg PO DAILY 03/31/20 [History] Multivitamins, Thera [Multivitamin (formulary)] 1 tab PO DAILY 03/31/20 [History] Pyridoxine HCl (Vitamin B6) [Vitamin B-6] 100 mg PO DAILY 03/31/20 [History] Cetirizine HCl [Zyrtec] 10 mg PO DAILY 05/31/20 [History] Omeprazole [PriLOSEC] 40 mg PO DAILY #14 cap 06/03/20 [Rx] Follow up Appointment(s)/Referral(s): Daniela Nicole MD [STAFF PHYSICIAN] - 06/08/20 Patient Instructions/Handouts: Gastritis (DC), Diet for Stomach Ulcers and Gastritis (ED) Activity/Diet/Wound Care/Special Instructions: Repeat lower scope 10 [id number] Discharge Disposition: HOME SELF-CARE
[2020-06-03 11:20] VITALS: BP 120/79; PULSE 61; RESP 16
== END 2020-06-03 11:40 | disposition home or self-care (01) ==
LOC: ORWHC2ENDO 08:58
PROVIDERS: ATTEND Surgery Plastic and Reconstructive Surgery
DX: K22.10 Ulcer of esophagus without bleeding (principal); K29.51 Unspecified chronic gastritis with bleeding; K31.9 Disease of stomach and duodenum, unspecified; K44.9 Diaphragmatic hernia without obstruction or gangrene; K64.2 Third degree hemorrhoids; K92.1 Melena; I25.10 Atherosclerotic heart disease of native coronary artery without angina pectoris; K21.9 Gastro-esophageal reflux disease without esophagitis; M19.90 Unspecified osteoarthritis, unspecified site; Z87.01 Personal history of pneumonia (recurrent); E07.9 Disorder of thyroid, unspecified; G25.3 Myoclonus; I69.354 Hemiplegia and hemiparesis following cerebral infarction affecting left non-dominant side; Z86.74 Personal history of sudden cardiac arrest; Z90.89 Acquired absence of other organs; Z91.81 History of falling; H93.19 Tinnitus, unspecified ear; M41.9 Scoliosis, unspecified; M10.9 Gout, unspecified; Z87.42 Personal history of other diseases of the female genital tract; Z87.440 Personal history of urinary (tract) infections; Z87.81 Personal history of (healed) traumatic fracture; Z90.710 Acquired absence of both cervix and uterus; Z98.890 Other specified postprocedural states; Z87.891 Personal history of nicotine dependence; Z83.3 Family history of diabetes mellitus; Z80.9 Family history of malignant neoplasm, unspecified; Z82.49 Family history of ischemic heart disease and other diseases of the circulatory system; Z79.82 Long term (current) use of aspirin; Z79.890 Hormone replacement therapy; Z79.899 Other long term (current) drug therapy; Z88.6 Allergy status to analgesic agent; Z88.1 Allergy status to other antibiotic agents; Z88.5 Allergy status to narcotic agent; Z88.0 Allergy status to penicillin; Z91.09 Other allergy status, other than to drugs and biological substances; G40.909 Epilepsy, unspecified, not intractable, without status epilepticus
CPT/HCPCS: 88305; 45378; 43239; J2001; J2704

== ENCOUNTER 2020-07-08 00:56 | Emergency (ER) | payer MEDICARE, OTHER ==
[2020-07-08 01:03] VITALS: TEMP 97.6
[2020-07-08] MEDS ORDERED: MORPHINE SULFATE 4 MG/ML SYRINGE IV STA ×2 (01:21→03:43)
--- NOTE | 2020-07-08 01:24 | ED ---
General Adult HPI - General Chief complaint: Shortness of Breath Stated complaint: Back Pain Time Seen by Provider: 07/08/20 01:05 Source: patient, family Mode of arrival: ambulatory Limitations: no limitations - History of Present Illness Initial comments: This patient is a 64-year-old woman who presents to be evaluated for left thoracic back pain. She indicates level of the scapula. She has not noted worsening or relieving factors. Patient states that it does remind her somewhat of previous episodes of pleurisy, though she usually had a cough associated with those episodes. Onset/Timin -: hour(s) Location: back Radiation: non-radiation Quality: aching Consistency: constant Improves with: none Worsens with: none Associated Symptoms: denies other symptoms Treatments Prior to Arrival: none - Related Data Home Medications Medication Instructions Recorded Confirmed Levothyroxine Sodium [Synthroid] 25 mcg PO QAM 08/11/13 06/03/20 Primidone [Mysoline] 50 mg PO BID 08/11/13 06/03/20 Zinc 50 mg PO DAILY 09/02/15 06/03/20 Aspirin [Adult Low Dose Aspirin EC] 81 mg PO DAILY 03/19/19 06/03/20 LORazepam [Ativan] 1 mg PO TID PRN 03/19/19 06/03/20 Biotin 5,000 mcg PO DAILY 03/31/20 06/03/20 Calcium Carbonate [Calcium] 1,200 mg PO DAILY 03/31/20 06/03/20 Cyanocobalamin (Vitamin B-12) 1,000 mcg PO QMONTHLY 03/31/20 06/03/20 [Vitamin B-12] Magnesium 400 mg PO DAILY 03/31/20 06/03/20 Multivitamins, Thera [Multivitamin 1 tab PO DAILY 03/31/20 06/03/20 (formulary)] Pyridoxine HCl (Vitamin B6) 100 mg PO DAILY 03/31/20 06/03/20 [Vitamin B-6] Cetirizine HCl [Zyrtec] 10 mg PO DAILY 05/31/20 06/03/20 Previous Rx's Medication Instructions Recorded Omeprazole [PriLOSEC] 40 mg PO DAILY #14 cap 06/03/20 traMADol HCl [Ultram] 50 mg PO Q6H PRN #20 tab 07/08/20 Allergies Allergy/AdvReac Type Severity Reaction Status Date / Time codeine Allergy Unknown Verified 07/08/20 01:02 erythromycin base Allergy Rash/Hives Verified 07/08/20 01:02 [From E-Mycin] hydrocodone bitartrate Allergy Unknown Verified 07/08/20 01:02 [From Vicodin] ibuprofen Allergy FLUSHED Verified 07/08/20 01:02 FEELING ACROSS UPPER CHEST Penicillins Allergy hallucinati Verified 07/08/20 01:02 ons,hives Tetracyclines Allergy Rash/Hives Verified 07/08/20 01:02 plastic bandaids Allergy welts on Uncoded 07/08/20 01:02 skin Review of Systems ROS Statement: Those systems with pertinent positive or pertinent negative responses have been documented in the HPI. ROS Other: All systems not noted in ROS Statement are negative. Constitutional: Denies: fever, chills Respiratory: Denies: cough, dyspnea Cardiovascular: Reports: as per HPI, chest pain. Denies: palpitations, orthopnea, edema, syncope Gastrointestinal: Denies: abdominal pain, nausea, vomiting, diarrhea, constipation Genitourinary: Denies: dysuria, frequency, hematuria, abnormal menses Musculoskeletal: Denies: back pain, joint swelling, arthralgia Neurological: Denies: weakness, numbness Past Medical History Past Medical History: Coronary Artery Disease (CAD), Chest Pain / Angina, CVA/TIA, GERD/Reflux, Musculoskeletal Disorder, Neurologic Disorder, Osteoarthritis (OA), Pneumonia, Seizure Disorder, Thyroid Disorder Additional Past Medical History / Comment(s): received both Moderna Covid Vaccines,central pontinemyelinilysis-(cpm), myoclonic jerks a form of seizures frequestly occurs, tremors, pt stated 10 cva-lt sided weakness, occ trouble swa mohamud,, H/O cardiac arrest at 12 year old post Appendectomy-1967.falls, tinnitus,bronchitis, scoliosis, endometerois, uterine fibroids, gout in past, uti, sinus problems, fx to rt ankle,rtand lt wrist, lt elbow,8 ribs, peptic ulcer History of Any Multi-Drug Resistant Organisms: None Reported Past Surgical History: Appendectomy, Heart Catheterization, Hysterectomy Additional Past Surgical History / Comment(s): 2 uterine suspension then Total abdominal hysterectomy, lasik eye sx sophia, d&c,bronchoscopy x3, lt hand sx. Past Anesthesia/Blood Transfusion Reactions: No Reported Reaction Additional Past Anesthesia/Blood Transfusion Reaction / Comment(s): blood transfusions-no reaction Past Psychological History: Anxiety, Bipolar, Depression Smoking Status: Former smoker Past Alcohol Use History: None Reported Past Drug Use History: Marijuana - Past Family History Mother Family Medical History: Diabetes Mellitus Father Family Medical History: Cancer Brother(s) Family Medical History: Coronary Artery Disease (CAD) Sister(s) Family Medical History: No Reported History Daughter(s) Family Medical History: No Reported History General Exam Limitations: no limitations General appearance: alert, in no apparent distress Head exam: Present: atraumatic, normocephalic Eye exam: Present: normal appearance. Absent: scleral icterus, conjunctival injection Neck exam: Present: normal inspection, full ROM. Absent: tenderness, meningismus Respiratory exam: Present: normal lung sounds bilaterally. Absent: respiratory distress, wheezes, rales, rhonchi, stridor, chest wall tenderness, accessory muscle use Cardiovascular Exam: Present: regular rate, normal rhythm, normal heart sounds. Absent: systolic murmur, diastolic murmur, rubs, gallop GI/Abdominal exam: Present: soft. Absent: distended, tenderness, guarding, rebound, rigid, mass Extremities exam: Present: normal inspection, normal capillary refill. Absent: pedal edema, calf tenderness Back exam: Present: normal inspection. Absent: tenderness, CVA tenderness (R), CVA tenderness (L), paraspinal tenderness, vertebral tenderness Neurological exam: Present: alert Skin exam: Present: warm, dry, intact, normal color. Absent: rash Course Vital Signs 07/08/20 07/08/20 00:58 04:09 Temperature 97.6 F Pulse Rate 72 51 L Respiratory 22 18 Rate Blood Pressure 116/74 112/64 O2 Sat by Pulse 98 96 Oximetry EKG Findings - EKG Comments: EKG Findings:: Low voltage QRS complexes. There is possible old septal infarct. T inversions in leads V2, 3, 4 - EKG Results: EKG: interpreted by ERMD, sinus rhythm, normal axis - Blocks, Bulan, Hypertrophy, ST Abn: Repolarization changes or abnormalities: ST or T wave suggestive of ischemia Medical Decision Making - Lab Data Result diagrams: 07/08/20 01:29 07/08/20 01:29 Lab Results 07/08/20 07/08/20 07/08/20 Range/Units 01:29 01:29 01:29 WBC 8.6 (3.8-10.6) k/uL RBC 4.45 (3.80-5.40) m/uL Hgb 13.3 (11.4-16.0) gm/dL Hct 39.6 (34.0-46.0) % MCV 89.0 (80.0-100.0) fL MCH 29.9 (25.0-35.0) pg MCHC 33.6 (31.0-37.0) g/dL RDW 13.0 (11.5-15.5) % Plt Count 270 (150-450) k/uL MPV 6.8 Neutrophils % 47 % Lymphocytes % 37 % Monocytes % 7 % Eosinophils % 7 % Basophils % 1 % Neutrophils # 4.0 (1.3-7.7) k/uL Lymphocytes # 3.2 (1.0-4.8) k/uL Monocytes # 0.6 (0-1.0) k/uL Eosinophils # 0.6 (0-0.7) k/uL Basophils # 0.1 (0-0.2) k/uL PT 10.0 (9.0-12.0) sec INR 0.9 (<1.2) APTT 24.9 (22.0-30.0) sec D-Dimer 0.31 (<0.60) mg/L FEU Sodium 139 (137-145) mmol/L Potassium 4.5 (3.5-5.1) mmol/L Chloride 106 (98-107) mmol/L Carbon Dioxide 28 (22-30) mmol/L Anion Gap 5 mmol/L BUN 15 (7-17) mg/dL Creatinine 0.79 (0.52-1.04) mg/dL Est GFR (CKD-EPI)AfAm >90 (>60 ml/min/1.73 sqM) Est GFR (CKD-EPI)NonAf 81 (>60 ml/min/1.73 sqM) Glucose 115 H (74-99) mg/dL Calcium 9.4 (8.4-10.2) mg/dL Magnesium 2.1 (1.6-2.3) mg/dL Total Bilirubin 0.1 L (0.2-1.3) mg/dL AST 28 (14-36) U/L ALT 26 (4-34) U/L Alkaline Phosphatase 89 (38-126) U/L Troponin I (0.000-0.034) ng/mL Total Protein 6.6 (6.3-8.2) g/dL Albumin 3.9 (3.5-5.0) g/dL Amylase 142 H (30-110) U/L Lipase 165 (23-300) U/L 07/08/20 Range/Units 01:29 WBC (3.8-10.6) k/uL RBC (3.80-5.40) m/uL Hgb (11.4-16.0) gm/dL Hct (34.0-46.0) % MCV (80.0-100.0) fL MCH (25.0-35.0) pg MCHC (31.0-37.0) g/dL RDW (11.5-15.5) % Plt Count (150-450) k/uL MPV Neutrophils % % Lymphocytes % % Monocytes % % Eosinophils % % Basophils % % Neutrophils # (1.3-7.7) k/uL Lymphocytes # (1.0-4.8) k/uL Monocytes # (0-1.0) k/uL Eosinophils # (0-0.7) k/uL Basophils # (0-0.2) k/uL PT (9.0-12.0) sec INR (<1.2) APTT (22.0-30.0) sec D-Dimer (<0.60) mg/L FEU Sodium (137-145) mmol/L Potassium (3.5-5.1) mmol/L Chloride (98-107) mmol/L Carbon Dioxide (22-30) mmol/L Anion Gap mmol/L BUN (7-17) mg/dL Creatinine (0.52-1.04) mg/dL Est GFR (CKD-EPI)AfAm (>60 ml/min/1.73 sqM) Est GFR (CKD-EPI)NonAf (>60 ml/min/1.73 sqM) Glucose (74-99) mg/dL Calcium (8.4-10.2) mg/dL Magnesium (1.6-2.3) mg/dL Total Bilirubin (0.2-1.3) mg/dL AST (14-36) U/L ALT (4-34) U/L Alkaline Phosphatase (38-126) U/L Troponin I <0.012 (0.000-0.034) ng/mL Total Protein (6.3-8.2) g/dL Albumin (3.5-5.0) g/dL Amylase (30-110) U/L Lipase (23-300) U/L Disposition Clinical Impression: Pleuritis Disposition: HOME SELF-CARE Condition: Good Instructions (If sedation given, give patient instructions): Pleurisy (DC) Prescriptions: traMADol HCl [Ultram] 50 mg PO Q6H PRN #20 tab PRN Reason: Pain Is patient prescribed a controlled substance at d/c from ED?: Yes Referrals: Savanah Prather MD [Primary Care Provider] - 1-2 days
[2020-07-08 02:28] LABS: Basophils # (A) 0.1 k/uL (0-0.2); Basophils % (A) 1 %; Eosinophils # (A) 0.6 k/uL (0-0.7); Eosinophils % (A) 7 %; HCT 39.6 % (34.0-46.0); HGB 13.3 gm/dL (11.4-16.0); Lymphocytes # (A) 3.2 k/uL (1.0-4.8); Lymphocytes % (A) 37 %; MCH 29.9 pg (25.0-35.0); MCHC 33.6 g/dL (31.0-37.0); Mean Platelet Volume 6.8; Monocytes # (A) 0.6 k/uL (0-1.0); Monocytes % (A) 7 %; Neutrophils % (A) 47 %; Platelet Count 270 k/uL (150-450); RBC 4.45 m/uL (3.80-5.40); WBC 8.6 k/uL (3.8-10.6)
[2020-07-08 02:37] LABS: ALT 26 U/L (4-34); AST 28 U/L (14-36); African American GFR (CKD) >90 (>60 ml/min/1.73 sqM); Albumin 3.9 g/dL (3.5-5.0); Alkaline Phosphatase 89 U/L (38-126); Amylase 142 U/L (30-110); Anion Gap 5 mmol/L; Blood Urea Nitrogen 15 mg/dL (7-17); Calcium 9.4 mg/dL (8.4-10.2); Carbon Dioxide 28 mmol/L (22-30); Chloride 106 mmol/L (98-107); Glucose 115 mg/dL (74-99); Lipase 165 U/L (23-300); Magnesium 2.1 mg/dL (1.6-2.3); Non-African American GFR(CKD) 81 (>60 ml/min/1.73 sqM); Potassium 4.5 mmol/L (3.5-5.1); Sodium 139 mmol/L (137-145); Total Bilirubin 0.1 mg/dL (0.2-1.3); Total Protein 6.6 g/dL (6.3-8.2)
[2020-07-08 02:38] LABS: D-Dimer 0.31 mg/L FEU (<0.60); INR 0.9 (<1.2); Partial Thromboplastin Time 24.9 sec (22.0-30.0)
--- NOTE | 2020-07-08 03:26 | XR ---
EXAM: XR Chest, 2 Views CLINICAL HISTORY: ITS.REASON XR Reason: Chest Pain TECHNIQUE: Frontal and lateral views of the chest. COMPARISON: December 20, 2019 no change in calcified right lower lobe granuloma and calcified right hilar lymph node. FINDINGS: Lungs: Unremarkable. No consolidation. Pleural space: Unremarkable. No pneumothorax. Heart: Unremarkable. No cardiomegaly. Mediastinum: Unremarkable. Bones/joints: Mild degenerative change in the mid to lower thoracic spine. IMPRESSION: No acute findings in the chest.
[2020-07-08 04:10] VITALS: RESP 18
--- NOTE | 2020-07-08 04:52 | CT ---
EXAM: CT Abdomen and Pelvis With Intravenous Contrast CLINICAL HISTORY: ITS.REASON CT Reason: abdominal pain TECHNIQUE: Axial computed tomography images of the abdomen and pelvis with intravenous contrast. CTDI is 11.5 mGy and DLP is 920.2 mGy-cm. This CT exam was performed using one or more of the following dose reduction techniques: automated exposure control, adjustment of the mA and/or kV according to patient size, and/or use of iterative reconstruction technique. COMPARISON: September 07, 2019 FINDINGS: Lung bases: Unremarkable. No mass. No consolidation. ABDOMEN: Liver: There is fatty infiltration of the liver. No focal liver lesion is seen. Gallbladder and bile ducts: Unremarkable. No calcified stones. No ductal dilation. Pancreas: Unremarkable. No mass. No ductal dilation. Spleen: Unremarkable. No splenomegaly. Adrenals: Unremarkable. No mass. Kidneys and ureters: Delayed images show normal renal contrast excretion bilaterally. No hydronephrosis. Stomach and bowel: There is a moderate amount of stool within the colon which is nondilated measuring up to 5.5 cm. Possible mild constipation. No acute inflammatory changes are seen involving the bowel. No mucosal thickening. PELVIS: Appendix: No findings to suggest acute appendicitis. Bladder: Unremarkable. No mass. Reproductive: The uterus has been removed. ABDOMEN and PELVIS: Intraperitoneal space: Unremarkable. No free air. No significant fluid collection. Bones/joints: Mild degenerative changes are seen in the lumbar spine. No acute fracture. No dislocation. Soft tissues: Unremarkable. Vasculature: The aorta is mildly calcified but nondilated. Lymph nodes: Unremarkable. No enlarged lymph nodes. IMPRESSION: There is a moderate amount of stool within the colon which is nondilated measuring up to 5.5 cm. Possible mild constipation. No acute inflammatory changes are seen involving the bowel.
[2020-07-08 05:54] VITALS: BP 106/54; PULSE 55
== END 2020-07-08 05:54 | disposition home or self-care (01) ==
LOC: EC 00:56
DX: R09.1 Pleurisy (principal); M54.6 Pain in thoracic spine; I25.10 Atherosclerotic heart disease of native coronary artery without angina pectoris; M19.90 Unspecified osteoarthritis, unspecified site; G40.909 Epilepsy, unspecified, not intractable, without status epilepticus; F31.9 Bipolar disorder, unspecified; F41.9 Anxiety disorder, unspecified; F12.90 Cannabis use, unspecified, uncomplicated; Z86.16 Personal history of COVID-19; Z86.73 Personal history of transient ischemic attack (TIA), and cerebral infarction without residual deficits; Z87.891 Personal history of nicotine dependence; Z79.82 Long term (current) use of aspirin; Z88.0 Allergy status to penicillin
CPT/HCPCS: 36415; 93005; 85379; 80053; 82150; 83690; 83735; 84484; 85025; 85610; 85730; 71046; 74177; 99285; 96374; 96376; J2270; Q9967

== ENCOUNTER → 2020-08-09 | Outpatient (CLI) | payer MEDICARE, OTHER ==
[~2020-08-09] MED LIST changes: -LACTATED RINGERS 1,000 ML IV SCH; +SODIUM CHLORIDE 0.9% 500 ML 500 ML in EMPTY BAG 1 BAG IV PRN; +ZOLEDRONIC ACID 5 MG in SODIUM CHLORIDE 0.9% 100 ML IV NR
[2020-08-09 14:34] VITALS: BP 107/77; PULSE 83; RESP 16; TEMP 98.1
== END ==
LOC: PROCWHC3 14:19
PROVIDERS: ATTEND Family Medicine
DX: M81.0 Age-related osteoporosis without current pathological fracture (principal); Z88.5 Allergy status to narcotic agent; Z88.0 Allergy status to penicillin; Z88.1 Allergy status to other antibiotic agents; Z88.6 Allergy status to analgesic agent; Z91.048 Other nonmedicinal substance allergy status; Z87.891 Personal history of nicotine dependence
CPT/HCPCS: 96365; J3489

== ENCOUNTER → 2020-08-10 | Outpatient (CLI) | payer MEDICARE, OTHER ==
--- NOTE | 2020-08-10 16:11 | XR ---
EXAMINATION TYPE: XR cervical spine limited DATE OF EXAM: 08/10/2020 TECHNIQUE: Frontal, lateral, oblique, swimmers, and open mouth view of the cervical spine are obtaine d. HISTORY: M54.2 COMPARISON: 02/26/2017 FINDINGS: Bony demineralization. C7-T1 is visualized. There is maintenance of the normal cervical kimberly dosis. No significant spondylolisthesis. Degenerative changes of the facets are seen. Mild degenerati ve narrowing of the posterior C4-5 and C5-6 levels. No loss of vertebral body height to suggest acute compression fracture. Prevertebral soft tissues are unremarkable. Dens is intact. Atlantoaxial artic ulations are intact. Lung apices are clear. IMPRESSION: 1. No acute compression fracture of the cervical spine. Mild degenerative changes of the cervical spi ne.
== END | disposition home or self-care (01) ==
LOC: RADXRMAIN 14:09
PROVIDERS: ATTEND Family Medicine
DX: M47.812 Spondylosis without myelopathy or radiculopathy, cervical region (principal)
CPT/HCPCS: 72040

== ENCOUNTER 2020-10-02 04:54 | Emergency (ER) | payer MEDICARE, OTHER ==
[2020-10-02 04:58] VITALS: TEMP 98.9
--- NOTE | 2020-10-02 05:00 | ED ---
Chest Pain HPI <Aiden Lane - Last Filed: 10/02/20 09:08> - General Source: patient, RN notes reviewed, old records reviewed Mode of arrival: wheelchair Limitations: no limitations - History of Present Illness MD Complaint: chest pain, other (Epigastric abdominal pain) -: days(s) Pain Location: substernal, epigastric Severity: moderate Severity scale (1-10): 4 Quality: tightness Consistency: constant Improves With: nothing Worsens With: nothing Context: other (none) Anginal Symptoms: nausea Other Symptoms: palpitations Treatments Prior to Arrival: none <Aiden Romero - Last Filed: 10/02/20 21:26> - General Chief Complaint: Chest Pain Stated Complaint: Chest pain Time Seen by Provider: 10/02/20 04:54 - History of Present Illness Initial Comments: This is a 65-year-old female to the ER for evaluation patient presents today for evaluation regards to chest pain with anterior abdominal pain and swelling. Patient has had cardiac evaluation in the past without findings. Patient relates this pain to hiatal hernia. No other complaints no fevers some occasional nausea without vomiting. (Aiden Romero) - Related Data Home Medications Medication Instructions Recorded Confirmed Levothyroxine Sodium [Synthroid] 25 mcg PO QAM 08/11/13 08/09/20 Primidone [Mysoline] 50 mg PO BID 08/11/13 08/09/20 Zinc 50 mg PO DAILY 09/02/15 08/09/20 Aspirin [Adult Low Dose Aspirin EC] 81 mg PO DAILY 03/19/19 08/09/20 LORazepam [Ativan] 1 mg PO TID PRN 03/19/19 08/09/20 Biotin 5,000 mcg PO DAILY 03/31/20 08/09/20 Calcium Carbonate [Calcium] 1,200 mg PO DAILY 03/31/20 08/09/20 Cyanocobalamin (Vitamin B-12) 1,000 mcg PO QMONTHLY 03/31/20 08/09/20 [Vitamin B-12] Magnesium 400 mg PO DAILY 03/31/20 08/09/20 Multivitamins, Thera [Multivitamin 1 tab PO DAILY 03/31/20 08/09/20 (formulary)] Pyridoxine HCl (Vitamin B6) 100 mg PO DAILY 03/31/20 08/09/20 [Vitamin B-6] Cetirizine HCl [Zyrtec] 10 mg PO DAILY 05/31/20 08/09/20 Previous Rx's Medication Instructions Recorded Omeprazole [PriLOSEC] 40 mg PO DAILY #14 cap 06/03/20 traMADol HCl [Ultram] 50 mg PO Q6H PRN #20 tab 07/08/20 Allergies Allergy/AdvReac Type Severity Reaction Status Date / Time codeine Allergy Unknown Verified 10/02/20 04:58 erythromycin base Allergy Rash/Hives Verified 10/02/20 04:58 [From E-Mycin] hydrocodone bitartrate Allergy Unknown Verified 10/02/20 04:58 [From Vicodin] ibuprofen Allergy FLUSHED Verified 10/02/20 04:58 FEELING ACROSS UPPER CHEST Penicillins Allergy hallucinati Verified 10/02/20 04:58 ons,hives Tetracyclines Allergy Rash/Hives Verified 10/02/20 04:58 morphine AdvReac Rash/Hives Verified 10/02/20 04:59 plastic bandaids Allergy welts on Uncoded 10/02/20 04:58 skin Review of Systems ROS Other: All systems not noted in ROS Statement are negative. <Aiden Lane - Last Filed: 10/02/20 09:08> ROS Other: All systems not noted in ROS Statement are negative. <Aiden Romero - Last Filed: 10/02/20 21:26> ROS Statement: Those systems with pertinent positive or pertinent negative responses have been documented in the HPI. EKG Findings - EKG Comments: EKG Findings:: EKG shows sinus bradycardia 58 NH 204 QRS 68 QTc 424 <Aiden Romero - Last Filed: 10/02/20 21:26> Past Medical History Past Medical History: Coronary Artery Disease (CAD), Chest Pain / Angina, CVA/TIA, GERD/Reflux, Musculoskeletal Disorder, Neurologic Disorder, Osteoarthritis (OA), Pneumonia, Seizure Disorder, Thyroid Disorder Additional Past Medical History / Comment(s): received both Moderna Covid Vaccines,central pontinemyelinilysis-(cpm), myoclonic jerks a form of seizures frequestly occurs, tremors, pt stated 10 cva-lt sided weakness, occ trouble swallowing,, H/O cardiac arrest at 12 year old post Appendectomy-1967.falls, tinnitus,bronchitis, scoliosis, endometerois, uterine fibroids, gout in past, uti, sinus problems, fx to rt ankle,rtand lt wrist, lt elbow,8 ribs, peptic ulcer History of Any Multi-Drug Resistant Organisms: None Reported Past Surgical History: Appendectomy, Heart Catheterization, Hysterectomy Additional Past Surgical History / Comment(s): 2 uterine suspension then Total abdominal hysterectomy, lasik eye sx sophia, d&c,bronchoscopy x3, lt hand sx. Past Anesthesia/Blood Transfusion Reactions: No Reported Reaction Additional Past Anesthesia/Blood Transfusion Reaction / Comment(s): blood transfusions-no reaction Past Psychological History: Anxiety, Bipolar, Depression Smoking Status: Never smoker Past Alcohol Use History: None Reported Past Drug Use History: None Reported - Past Family History Mother Family Medical History: Diabetes Mellitus Father Family Medical History: Cancer Brother(s) Family Medical History: Coronary Artery Disease (CAD) Sister(s) Family Medical History: No Reported History Daughter(s) Family Medical History: No Reported History <Aiden Romero - Last Filed: 10/02/20 21:26> General Exam General appearance: alert, in no apparent distress Head exam: Present: atraumatic, normocephalic, normal inspection Eye exam: Present: normal appearance, PERRL, EOMI. Absent: scleral icterus, conjunctival injection, periorbital swelling ENT exam: Present: normal exam, mucous membranes moist Neck exam: Present: normal inspection. Absent: tenderness, meningismus, lymphadenopathy Respiratory exam: Present: normal lung sounds bilaterally. Absent: respiratory distress, wheezes, rales, rhonchi, stridor Cardiovascular Exam: Present: regular rate, normal rhythm, normal heart sounds. Absent: systolic murmur, diastolic murmur, rubs, gallop, clicks GI/Abdominal exam: Present: soft, tenderness (Abdominal pain), normal bowel sounds. Absent: distended, guarding, rebound, rigid Extremities exam: Present: normal inspection, full ROM, normal capillary refill. Absent: tenderness, pedal edema, joint swelling, calf tenderness Back exam: Present: normal inspection Neurological exam: Present: alert, oriented X3, CN II-XII intact Psychiatric exam: Present: normal affect, normal mood Skin exam: Present: warm, dry, intact, normal color. Absent: rash <Aiden Romero - Last Filed: 10/02/20 21:26> Course <Aiden Romero - Last Filed: 10/02/20 21:26> Vital Signs 10/02/20 10/02/20 10/02/20 04:54 06:00 06:50 Temperature 98.9 F Pulse Rate 66 57 L Respiratory 19 18 18 Rate Blood Pressure 116/72 91/57 96/61 O2 Sat by Pulse 97 Oximetry 10/02/20 10/02/20 10/02/20 07:24 08:00 09:30 Temperature 98.9 F Pulse Rate 51 L 52 L Respiratory 18 18 Rate Blood Pressure 111/60 98/57 92/63 O2 Sat by Pulse 95 96 Oximetry 10/02/20 09:52 Temperature Pulse Rate 52 L Respiratory 18 Rate Blood Pressure 92/63 O2 Sat by Pulse 96 Oximetry - Reevaluation(s) Reevaluation #1: 10/02/20 06:20 Medical record is reviewed (Aiden Romero) Chest Pain MDM <Aiden Lane - Last Filed: 10/02/20 09:08> - [facility] Patient's CAT scan of the chest shows no pulmonary embolus is in no acute abnormality. Patient's CT of the abdomen and pelvis shows no acute abnormality. I will back into reevaluate the patient and she indicated to me that she has had this exact same pain many times before and she has been told is her hiatal hernia and she has an appointment to follow-up with her surgeon. She states she had a cardiac catheterization in 2018 in the wound no occlusions. Patient states she does not want to stay today and she feeling much better she wants to follow-up with her surgeon. (Aiden Lane) Disposition Is patient prescribed a controlled substance at d/c from ED?: No Time of Disposition: 09:09 <[address] - Last Filed: 10/02/20 09:08> Is patient prescribed a controlled substance at d/c from ED?: No <Aiden Romero - Last Filed: 10/02/20 21:26> Clinical Impression: Hiatal hernia, Atypical chest pain Disposition: HOME SELF-CARE Condition: Good Instructions (If sedation given, give patient instructions): Chest Pain (ED), Hiatal Hernia (ED) Referrals: Savanah Prather MD [Primary Care Provider] - 1-2 days
--- NOTE | 2020-10-02 05:58 | XR ---
EXAMINATION TYPE: XR chest 2V DATE OF EXAM: 10/02/2020 COMPARISON: 07/08/2020 HISTORY: Chest pain TECHNIQUE: 2 views FINDINGS: Heart and mediastinum are normal. There is some linear density right upper lobe consistent with scarring. There are no hilar masses. Costophrenic angles are clear. There are chest leads. There is calcified granulomata in the right lower lobe. Bony thorax is intact. IMPRESSION: Right upper lobe scarring. Old granulomatous disease. No change compared to old exam.
[2020-10-02 06:08] LABS: Basophils # (A) 0.1 k/uL (0-0.2); Basophils % (A) 1 %; Eosinophils # (A) 0.6 k/uL (0-0.7); Eosinophils % (A) 5 %; HCT 42.4 % (34.0-46.0); HGB 13.9 gm/dL (11.4-16.0); Lymphocytes # (A) 3.2 k/uL (1.0-4.8); Lymphocytes % (A) 29 %; MCH 29.4 pg (25.0-35.0); MCHC 32.8 g/dL (31.0-37.0); MCV 89.6 fL (80.0-100.0); Mean Platelet Volume 7.3; Monocytes # (A) 0.7 k/uL (0-1.0); Monocytes % (A) 6 %; Neutrophils # (A) 6.3 k/uL (1.3-7.7); Neutrophils % (A) 57 %; Platelet Count 322 k/uL (150-450); RBC 4.73 m/uL (3.80-5.40); RDW 13.6 % (11.5-15.5)
[2020-10-02 06:17] LABS: INR 0.9 (<1.2); Prothrombin Time 10.1 sec (9.0-12.0)
[2020-10-02 06:18] LABS: Partial Thromboplastin Time 26.4 sec (22.0-30.0)
[2020-10-02 06:23] VITALS: RESP 18
[2020-10-02] MEDS ORDERED: ONDANSETRON 4 MG/2 ML VIAL IVP STA (06:24)
[2020-10-02] MEDS ORDERED: PANTOPRAZOLE 40 MG/10 ML VIAL IVP STA (06:24)
[2020-10-02] MEDS ORDERED: HYDROmorphone 1 MG/ML 1 ML SYRINGE IVP STA (06:25)
[2020-10-02 07:38] LABS: ALT 30 U/L (4-34); AST 33 U/L (14-36); African American GFR (CKD) >90 (>60 ml/min/1.73 sqM); Albumin 4.1 g/dL (3.5-5.0); Alkaline Phosphatase 99 U/L (38-126); Anion Gap 10 mmol/L; Blood Urea Nitrogen 15 mg/dL (7-17); Calcium 9.1 mg/dL (8.4-10.2); Carbon Dioxide 22 mmol/L (22-30); Chloride 105 mmol/L (98-107); Creatine Kinase 81 U/L (30-135); Glucose 120 mg/dL (74-99); Magnesium 2.1 mg/dL (1.6-2.3); Non-African American GFR(CKD) >90 (>60 ml/min/1.73 sqM); Potassium 3.9 mmol/L (3.5-5.1); Sodium 137 mmol/L (137-145); Total Bilirubin 0.2 mg/dL (0.2-1.3); Total Protein 6.9 g/dL (6.3-8.2)
--- NOTE | 2020-10-02 08:25 | CT ---
EXAMINATION TYPE: CT angio chest DATE OF EXAM: 10/02/2020 8:03 AM COMPARISON: None HISTORY: chest pain, epigastric pain CT DLP: 1098.5 mGycm Automated exposure control for dose reduction was used. CONTRAST: CTA scan of the thorax is performed with IV Contrast, patient injected with 100 mL of Isovue 370, pul monary embolism protocol. . FINDINGS: LUNGS: Groundglass and reticular opacity at the right greater than left dependent lower lobe. A small amount of subpleural cystic change in the dependent right lower lobe. Atelectasis/scarring at the right apex. There is no pleural effusion or pneumothorax seen. The trach eobronchial tree is patent. Calcified granuloma right middle lobe. MEDIASTINUM: There is satisfactory enhancement of the pulmonary artery and its branches, there is no CT evidence for pulmonary embolism. There are no greater than 1 cm hilar or mediastinal lymph nodes. No pericardial effusion is seen. Prominent but nonenlarged lymph nodes nodes along the bronchovasc ular tree just distal to the rosalinda. OTHER: Splenic and hepatic granulomata. IMPRESSION: 1. NO CENTRAL, LOBAR OR SEGMENTAL PULMONARY EMBOLISM. LIMITED ASSESSMENT OF THE SUBSEGMENTAL VESSELS DUE TO POOR OPACIFICATION. 2. A MILD AMOUNT OF RETICULAR, GROUNDGLASS OPACITY WITH SOME SUBPLEURAL CYSTIC CHANGE AT THE RIGHT G REATER THAN LEFT DEPENDENT LOWER LOBES COULD RELATE TO CHRONIC LUNG DISEASE. 3. Sequela of granulomatous disease.0
--- NOTE | 2020-10-02 08:39 | CT ---
EXAMINATION TYPE: CT abdomen pelvis w con DATE OF EXAM: 10/02/2020 COMPARISON: CT abdomen pelvis 07/08/2020 HISTORY: chest pain, epigastric pain CT DLP: 1098.5 mGycm Automated exposure control for dose reduction was used. TECHNIQUE: Helical acquisition of images was performed from the lung bases through the pelvis. CONTRAST: Performed without Oral Contrast and with IV Contrast, patient injected with 100 mL of Isovue 370. FINDINGS: LUNG BASES: No significant abnormality is appreciated. LIVER/GB: Hepatic granulomata. Subcentimeter hypodensity with peripheral enhancement in the right lob e is indeterminate . Noncirrhotic morphology. The hepatic and portal veins are patent. PANCREAS: No significant abnormality is seen. SPLEEN: Nonenlarged. Granulomas. ADRENALS: No significant abnormality is seen. KIDNEYS: Sub-centimeter hypodensities in the right kidney likely represent cysts. No hydronephrosis. Symmetrically enhancing. FREE AIR: No free air is visualized. RETROPERITONEAL ADENOPATHY: None visualized REPRODUCTIVE ORGANS: Uterus is absent. No adnexal mass. URINARY BLADDER: Distended. No significant abnormality is seen. PELVIC ADENOPATHY: None visualized. OSSEOUS STRUCTURES: No significant abnormality is seen. BOWEL: No significant abnormality is seen. OTHER: There is a 1.7 x 1.3 x 2.6 cm cystic structure the left anterolateral aspect of the esophagus at the GE junction similar to multiple prior studies. IMPRESSION: 1. There is a 1.7 x 1.3 x 2.6 cm cystic structure the left anterolateral aspect of the esophagus at the GE junction. This could relate to a fluid-filled diverticulum and has been present on multiple pr ior examinations and is unchanged. Correlation with direct visualization swallow study is recommended . 2. No acute process in the abdomen or pelvis
[2020-10-02 09:53] VITALS: BP 92/63; PULSE 52
== END 2020-10-02 09:35 | disposition home or self-care (01) ==
LOC: EC 04:54
DX: K44.9 Diaphragmatic hernia without obstruction or gangrene (principal); I25.10 Atherosclerotic heart disease of native coronary artery without angina pectoris; K21.9 Gastro-esophageal reflux disease without esophagitis; M19.90 Unspecified osteoarthritis, unspecified site; G40.909 Epilepsy, unspecified, not intractable, without status epilepticus; F31.9 Bipolar disorder, unspecified; F41.9 Anxiety disorder, unspecified; Z86.16 Personal history of COVID-19; Z86.73 Personal history of transient ischemic attack (TIA), and cerebral infarction without residual deficits; Z79.82 Long term (current) use of aspirin; Z88.0 Allergy status to penicillin
CPT/HCPCS: 36415; 93005; 80053; 82550; 83690; 83735; 84484; 85025; 85610; 85730; 71046; 71275; 74177; 99285; 96374; 96375 ×2; J2405; J1170; C9113; Q9967

== ENCOUNTER 2020-10-03 01:11 | Emergency (ER) | payer MEDICARE, OTHER ==
[2020-10-03 01:39] VITALS: PULSE 71; TEMP 97.9
[2020-10-03] MEDS ORDERED: HYDROmorphone 1 MG/ML 1 ML SYRINGE IM STA (01:59)
--- NOTE | 2020-10-03 02:23 | XR ---
EXAMINATION TYPE: XR forearm LT DATE OF EXAM: 10/03/2020 COMPARISON: NONE HISTORY: Fall. Pain TECHNIQUE: 2 views FINDINGS: Radius and ulna appear intact. I see no fracture nor dislocation. Elbow joint appears intac t. Carpal bones are intact. IMPRESSION: No acute abnormality of the radius and ulna.
--- NOTE | 2020-10-03 02:26 | ED ---
Fall HPI - General Chief Complaint: Fall Stated Complaint: Fall, arm injury Time Seen by Provider: 10/03/20 01:43 Source: patient, RN notes reviewed Mode of arrival: ambulatory - History of Present Illness Initial Comments: Patient is a 65-year-old female that presents to the emergency department status post fall landing on her outstretched left hand. She notes that she was fishing when she lost her balance falling. She notes that she has pain over the anatomical snuffbox all the way up to her elbow.. She notes that she still has full sensation and feeling in her left upper extremity. She denied any other issues or complaints at this time. She notes that her pain was pretty significant stating it was a 8 out of 10. She denied any chest pain shortness of breath headache nausea vomiting diarrhea constipation fever fatigue chills. - Related Data Home Medications Medication Instructions Recorded Confirmed Levothyroxine Sodium [Synthroid] 25 mcg PO QAM 08/11/13 08/09/20 Primidone [Mysoline] 50 mg PO BID 08/11/13 08/09/20 Zinc 50 mg PO DAILY 09/02/15 08/09/20 Aspirin [Adult Low Dose Aspirin EC] 81 mg PO DAILY 03/19/19 08/09/20 LORazepam [Ativan] 1 mg PO TID PRN 03/19/19 08/09/20 Biotin 5,000 mcg PO DAILY 03/31/20 08/09/20 Calcium Carbonate [Calcium] 1,200 mg PO DAILY 03/31/20 08/09/20 Cyanocobalamin (Vitamin B-12) 1,000 mcg PO QMONTHLY 03/31/20 08/09/20 [Vitamin B-12] Magnesium 400 mg PO DAILY 03/31/20 08/09/20 Multivitamins, Thera [Multivitamin 1 tab PO DAILY 03/31/20 08/09/20 (formulary)] Pyridoxine HCl (Vitamin B6) 100 mg PO DAILY 03/31/20 08/09/20 [Vitamin B-6] Cetirizine HCl [Zyrtec] 10 mg PO DAILY 05/31/20 08/09/20 Previous Rx's Medication Instructions Recorded Omeprazole [PriLOSEC] 40 mg PO DAILY #14 cap 06/03/20 traMADol HCl [Ultram] 50 mg PO Q6H PRN #20 tab 07/08/20 Allergies Allergy/AdvReac Type Severity Reaction Status Date / Time codeine Allergy Unknown Verified 10/03/20 01:39 erythromycin base Allergy Rash/Hives Verified 10/03/20 01:39 [From E-Mycin] hydrocodone bitartrate Allergy Unknown Verified 10/03/20 01:39 [From Vicodin] ibuprofen Allergy FLUSHED Verified 10/03/20 01:39 FEELING ACROSS UPPER CHEST Penicillins Allergy hallucinati Verified 10/03/20 01:39 ons,hives Tetracyclines Allergy Rash/Hives Verified 10/03/20 01:39 morphine AdvReac Rash/Hives Verified 10/03/20 01:39 plastic bandaids Allergy welts on Uncoded 10/03/20 01:39 skin Review of Systems ROS Statement: Those systems with pertinent positive or pertinent negative responses have been documented in the HPI. ROS Other: All systems not noted in ROS Statement are negative. Past Medical History Past Medical History: Coronary Artery Disease (CAD), Chest Pain / Angina, CVA/TIA, GERD/Reflux, Musculoskeletal Disorder, Neurologic Disorder, Osteoarthritis (OA), Pneumonia, Seizure Disorder, Thyroid Disorder Additional Past Medical History / Comment(s): received both Moderna Covid Vaccines,central pontinemyelinilysis-(cpm), myoclonic jerks a form of seizures frequestly occurs, tremors, pt stated 10 cva-lt sided weakness, occ trouble swallowing,, H/O cardiac arrest at 12 year old post Appendectomy-1967.falls, tinnitus,bronchitis, scoliosis, endometerois, uterine fibroids, gout in past, uti, sinus problems, fx to rt ankle,rtand lt wrist, lt elbow,8 ribs, peptic ulcer History of Any Multi-Drug Resistant Organisms: None Reported Past Surgical History: Appendectomy, Heart Catheterization, Hysterectomy Additional Past Surgical History / Comment(s): 2 uterine suspension then Total abdominal hysterectomy, lasik eye sx sophia, d&c,bronchoscopy x3, lt hand sx. Past Anesthesia/Blood Transfusion Reactions: No Reported Reaction Additional Past Anesthesia/Blood Transfusion Reaction / Comment(s): blood transfusions-no reaction Past Psychological History: Anxiety, Bipolar, Depression Smoking Status: Never smoker Past Alcohol Use History: None Reported Past Drug Use History: None Reported - Past Family History Mother Family Medical History: Diabetes Mellitus Father Family Medical History: Cancer Brother(s) Family Medical History: Coronary Artery Disease (CAD) Sister(s) Family Medical History: No Reported History Daughter(s) Family Medical History: No Reported History General Exam General appearance: alert, in no apparent distress Head exam: Present: atraumatic, normocephalic, normal inspection Eye exam: Present: normal appearance, PERRL, EOMI. Absent: scleral icterus, conjunctival injection, periorbital swelling Neck exam: Present: normal inspection Respiratory exam: Present: normal lung sounds bilaterally. Absent: respiratory distress, wheezes, rales, rhonchi, stridor Cardiovascular Exam: Present: regular rate, normal rhythm, normal heart sounds. Absent: systolic murmur, diastolic murmur, rubs, gallop, clicks Left Elbow exam: Present: normal inspection, full ROM. Absent: tenderness, swelling, abrasion Forearm Wrist exam: Present: normal inspection, tenderness (Radial aspect of the wrist), tenderness over anatomical snuff box. Absent: full ROM (Secondary to pain) Hand Wrist exam: Present: normal inspection Neurological exam: Present: alert, oriented X3 Psychiatric exam: Present: normal affect, normal mood Skin exam: Present: warm, dry, intact, normal color. Absent: rash Course Vital Signs 10/03/20 01:33 Temperature 97.9 F Pulse Rate 71 Respiratory 19 Rate Blood Pressure 93/55 O2 Sat by Pulse 98 Oximetry Procedures - Orthopedic Splinting/Casting Injury #1 Side: left Upper Extremity Injury Location: wrist, hand Upper Extremity Immobilizer: thumb spica, Blake wrap, synthetic pre-padded splint Medical Decision Making - Medical Decision Making Patient is a 65-year-old female that fell on outstretched left hand. X-ray of the left forearm and hand, 1 mg of Dilaudid ordered. - Radiology Data Radiology results: report reviewed, image reviewed X-ray of the left hand: There is a nondisplaced transverse fracture across the base of the first metacarpal. There is no dislocation. The fingers appear intact. Carpal bones are intact. There is no subluxation. X-ray of the left forearm: No acute abnormality of the radius and ulna. Disposition Clinical Impression: Closed fracture of first metacarpal bone of left hand Disposition: HOME SELF-CARE Condition: Stable Instructions (If sedation given, give patient instructions): Hand Fracture (ED), Fall Prevention for Older Adults (ED) Additional Instructions: Please return to the Emergency Department if symptoms worsen or any other concerns. Follow-up with primary care 1-2 days. Follow-up with orthopedics as soon as possible. Wear splints throughout the day. Is patient prescribed a controlled substance at d/c from ED?: No Referrals: Savanah Prather MD [Primary Care Provider] - 1-2 days Jermaine Khoury MD [STAFF PHYSICIAN] - 1-2 days Time of Disposition: 02:55
--- NOTE | 2020-10-03 02:27 | XR ---
EXAMINATION TYPE: XR hand complete LT DATE OF EXAM: 10/03/2020 COMPARISON: NONE HISTORY: Fall. Pain TECHNIQUE: 3 views FINDINGS: There is nondisplaced transverse fracture across the base of the first metacarpal. There is no dislocation. The fingers appear intact. Carpal bones are intact. There is no subluxation. IMPRESSION: Acute fracture of the proximal first metacarpal. No displacement.
[2020-10-03 03:05] VITALS: BP 108/60; RESP 16
== END 2020-10-03 03:04 | disposition home or self-care (01) ==
LOC: EC 01:11
DX: S62.232A Other displaced fracture of base of first metacarpal bone, left hand, initial encounter for closed fracture (principal); G40.909 Epilepsy, unspecified, not intractable, without status epilepticus; I25.10 Atherosclerotic heart disease of native coronary artery without angina pectoris; K21.9 Gastro-esophageal reflux disease without esophagitis; M19.90 Unspecified osteoarthritis, unspecified site; F31.9 Bipolar disorder, unspecified; F41.9 Anxiety disorder, unspecified; Z86.73 Personal history of transient ischemic attack (TIA), and cerebral infarction without residual deficits; Z86.74 Personal history of sudden cardiac arrest; Z87.440 Personal history of urinary (tract) infections; Z79.82 Long term (current) use of aspirin; Z88.0 Allergy status to penicillin; Z88.1 Allergy status to other antibiotic agents; Z88.5 Allergy status to narcotic agent; Z90.49 Acquired absence of other specified parts of digestive tract; W18.30XA Fall on same level, unspecified, initial encounter; Y93.89 Activity, other specified
CPT/HCPCS: 73090; 73130; 99284; 96372; 29125; J1170

== ENCOUNTER 2021-02-04 22:48 | Emergency (ER) | payer MEDICARE, OTHER ==
[2021-02-04 22:54] VITALS: RESP 18
--- NOTE | 2021-02-04 22:59 | ED ---
Neuro HPI - General Chief Complaint: Neuro Symptoms/Deficit Stated Complaint: Possible Stroke Time Seen by Provider: 02/04/21 22:58 Source: patient, RN notes reviewed, old records reviewed Mode of arrival: ambulatory Limitations: no limitations - History of Present Illness Is the patient presenting with stroke symptoms?: No -: hour(s) Initial Comments: This Is a 65-year-old female to the emergency department for evaluation with loss of vision right eye. Patient also has significant history of 9 prior CVAs patient presents today for evaluation regards to the concerned regarding loss of vision. The loss of vision in right eye has resolved. Patient otherwise has no complaints patient does have history of left-sided weakness face arm leg but all that has been chronic. Not appear to be worse than her baseline Location: speech, left face, dysarthria, left arm, left leg Place: home Severity: mild Quality: weak Improves With: none Worsens With: none On Anticoagulants: No Context: sudden onset Associated Symptoms: denies other symptoms Treatments Prior to Arrival: none - Related Data Home Medications: Home Medications Medication Instructions Recorded Confirmed Levothyroxine Sodium [Synthroid] 25 mcg PO QAM 08/11/13 08/09/20 Primidone [Mysoline] 50 mg PO BID 08/11/13 08/09/20 Zinc 50 mg PO DAILY 09/02/15 08/09/20 Aspirin [Adult Low Dose Aspirin EC] 81 mg PO DAILY 03/19/19 08/09/20 LORazepam [Ativan] 1 mg PO TID PRN 03/19/19 08/09/20 Biotin [Biotin Disolve] 5,000 mcg PO DAILY 03/31/20 08/09/20 Calcium Carbonate [Calcium] 1,200 mg PO DAILY 03/31/20 08/09/20 Cyanocobalamin (Vitamin B-12) 1,000 mcg PO QMONTHLY 03/31/20 08/09/20 [Vitamin B-12] Magnesium 400 mg PO DAILY 03/31/20 08/09/20 Multivitamins, Thera [Multivitamin 1 tab PO DAILY 03/31/20 08/09/20 (formulary)] Pyridoxine HCl (Vitamin B6) 100 mg PO DAILY 03/31/20 08/09/20 [Vitamin B-6] Cetirizine HCl [Zyrtec] 10 mg PO DAILY 05/31/20 08/09/20 Previous Rx's Medication Instructions Recorded Omeprazole [PriLOSEC] 40 mg PO DAILY #14 cap 06/03/20 traMADol HCl [Ultram] 50 mg PO Q6H PRN #20 tab 07/08/20 Allergies/Adverse Reactions: Allergies Allergy/AdvReac Type Severity Reaction Status Date / Time codeine Allergy Unknown Verified 02/04/21 22:54 erythromycin base Allergy Rash/Hives Verified 02/04/21 22:54 [From E-Mycin] hydrocodone bitartrate Allergy Unknown Verified 02/04/21 22:54 [From Vicodin] ibuprofen Allergy FLUSHED Verified 02/04/21 22:54 FEELING ACROSS UPPER CHEST Penicillins Allergy hallucinati Verified 02/04/21 22:54 ons,hives Tetracyclines Allergy Rash/Hives Verified 02/04/21 22:54 morphine AdvReac Rash/Hives Verified 02/04/21 22:54 plastic bandaids Allergy welts on Uncoded 02/04/21 22:54 skin Review of Systems ROS Statement: Those systems with pertinent positive or pertinent negative responses have been documented in the HPI. ROS Other: All systems not noted in ROS Statement are negative. General Exam - General Exam Comments Initial Comments: Does have NIH of 6 does appear chronic patient has returned Limitations: no limitations General appearance: alert, in no apparent distress Head exam: Present: atraumatic, normocephalic, normal inspection Eye exam: Present: normal appearance, PERRL, EOMI. Absent: scleral icterus, conjunctival injection, periorbital swelling ENT exam: Present: normal exam, mucous membranes moist Neck exam: Present: normal inspection. Absent: tenderness, meningismus, lymphadenopathy Respiratory exam: Present: normal lung sounds bilaterally. Absent: respiratory distress, wheezes, rales, rhonchi, stridor Cardiovascular Exam: Present: regular rate, normal rhythm, normal heart sounds. Absent: systolic murmur, diastolic murmur, rubs, gallop, clicks GI/Abdominal exam: Present: soft, normal bowel sounds. Absent: distended, tenderness, guarding, rebound, rigid Extremities exam: Present: normal inspection, full ROM, normal capillary refill. Absent: tenderness, pedal edema, joint swelling, calf tenderness Back exam: Present: normal inspection Neurological exam: Present: alert, oriented X3, CN II-XII intact Psychiatric exam: Present: normal affect, normal mood Skin exam: Present: warm, dry, intact, normal color. Absent: rash Stroke MDM - Lab Data Result diagrams: 02/04/21 23:13 02/04/21 23:13 Lab Results 02/04/21 02/04/21 02/04/21 Range/Units 23:13 23:13 23:13 WBC 10.3 (3.8-10.6) k/uL RBC 4.87 (3.80-5.40) m/uL Hgb 14.5 (11.4-16.0) gm/dL Hct 44.9 (34.0-46.0) % MCV 92.2 (80.0-100.0) fL MCH 29.8 (25.0-35.0) pg MCHC 32.3 (31.0-37.0) g/dL RDW 13.4 (11.5-15.5) % Plt Count 330 (150-450) k/uL MPV 7.3 Neutrophils % 51 % Lymphocytes % 33 % Monocytes % 6 % Eosinophils % 6 % Basophils % 1 % Neutrophils # 5.2 (1.3-7.7) k/uL Lymphocytes # 3.4 (1.0-4.8) k/uL Monocytes # 0.6 (0-1.0) k/uL Eosinophils # 0.7 (0-0.7) k/uL Basophils # 0.1 (0-0.2) k/uL PT 10.0 (9.0-12.0) sec INR 0.9 (<1.2) APTT 26.2 (22.0-30.0) sec Sodium 138 (137-145) mmol/L Potassium 4.1 (3.5-5.1) mmol/L Chloride 104 (98-107) mmol/L Carbon Dioxide 24 (22-30) mmol/L Anion Gap 10 mmol/L BUN 14 (7-17) mg/dL Creatinine 0.66 (0.52-1.04) mg/dL Est GFR (CKD-EPI)AfAm >90 (>60 ml/min/1.73 sqM) Est GFR (CKD-EPI)NonAf >90 (>60 ml/min/1.73 sqM) Glucose 108 H (74-99) mg/dL Calcium 9.1 (8.4-10.2) mg/dL Total Bilirubin 0.2 (0.2-1.3) mg/dL AST 26 (14-36) U/L ALT 26 (4-34) U/L Alkaline Phosphatase 97 (38-126) U/L Troponin I (0.000-0.034) ng/mL Total Protein 7.1 (6.3-8.2) g/dL Albumin 3.9 (3.5-5.0) g/dL 02/04/21 Range/Units 23:13 WBC (3.8-10.6) k/uL RBC (3.80-5.40) m/uL Hgb (11.4-16.0) gm/dL Hct (34.0-46.0) % MCV (80.0-100.0) fL MCH (25.0-35.0) pg MCHC (31.0-37.0) g/dL RDW (11.5-15.5) % Plt Count (150-450) k/uL MPV Neutrophils % % Lymphocytes % % Monocytes % % Eosinophils % % Basophils % % Neutrophils # (1.3-7.7) k/uL Lymphocytes # (1.0-4.8) k/uL Monocytes # (0-1.0) k/uL Eosinophils # (0-0.7) k/uL Basophils # (0-0.2) k/uL PT (9.0-12.0) sec INR (<1.2) APTT (22.0-30.0) sec Sodium (137-145) mmol/L Potassium (3.5-5.1) mmol/L Chloride (98-107) mmol/L Carbon Dioxide (22-30) mmol/L Anion Gap mmol/L BUN (7-17) mg/dL Creatinine (0.52-1.04) mg/dL Est GFR (CKD-EPI)AfAm (>60 ml/min/1.73 sqM) Est GFR (CKD-EPI)NonAf (>60 ml/min/1.73 sqM) Glucose (74-99) mg/dL Calcium (8.4-10.2) mg/dL Total Bilirubin (0.2-1.3) mg/dL AST (14-36) U/L ALT (4-34) U/L Alkaline Phosphatase (38-126) U/L Troponin I <0.012 (0.000-0.034) ng/mL Total Protein (6.3-8.2) g/dL Albumin (3.5-5.0) g/dL - NIH Stroke Scale 1a. Level of Consciousness: (0) alert 1b. LOC Questions: (0) answers correctly 1c. LOC Commands: (0) performs tasks correctly 2. Best Gaze: (0) normal 4. Facial Palsy: (1) minor paralysis 5a. Motor Arm Left: (1) drift 5b. Motor Arm Right: (0) no drift 6a. Motor Leg Left: (1) drift 6b. Motor Leg Right: (0) no drift 7. Limb Ataxia: (1) present 1 limb 8. Sensory: (0) normal 9. Best Language: (1) mild/moderate aphasia 10. Dysarthria: (1) mild/moderate dysarthria 11. Extinction/Inattention: (0) no abnormality - Thrombolytic Inclusion/Exclusion Thrombolytic Inclusion Criteria: Symptom Onset < 4.5 h - Radiology Data Radiology results: report reviewed (CT brain CT had neck is negative for acute disease), image reviewed - EKG Data -: EKG Interpreted by Me (EKG shows sinus rhythm 63 ND 164 QRS 80 QTC 419) Past Medical History Past Medical History: Coronary Artery Disease (CAD), Chest Pain / Angina, CVA/TIA, GERD/Reflux, Musculoskeletal Disorder, Neurologic Disorder, Osteoarthritis (OA), Pneumonia, Seizure Disorder, Thyroid Disorder Additional Past Medical History / Comment(s): received both Moderna Covid Vaccines,central pontinemyelinilysis-(cpm), myoclonic jerks a form of seizures frequestly occurs, tremors, pt stated 10 cva-lt sided weakness, occ trouble swallowing,, H/O cardiac arrest at 12 year old post Appendectomy-1967.falls, tinnitus,bronchitis, scoliosis, endometerois, uterine fibroids, gout in past, uti, sinus problems, fx to rt ankle,rtand lt wrist, lt elbow,8 ribs, peptic ulcer History of Any Multi-Drug Resistant Organisms: None Reported Past Surgical History: Appendectomy, Heart Catheterization, Hysterectomy Additional Past Surgical History / Comment(s): 2 uterine suspension then Total abdominal hysterectomy, lasik eye sx sophia, d&c,bronchoscopy x3, lt hand sx. Past Anesthesia/Blood Transfusion Reactions: No Reported Reaction Additional Past Anesthesia/Blood Transfusion Reaction / Comment(s): blood transfusions-no reaction Past Psychological History: Anxiety, Bipolar, Depression Smoking Status: Never smoker Past Alcohol Use History: None Reported Past Drug Use History: None Reported - Past Family History Mother Family Medical History: Diabetes Mellitus Father Family Medical History: Cancer Brother(s) Family Medical History: Coronary Artery Disease (CAD) Sister(s) Family Medical History: No Reported History Daughter(s) Family Medical History: No Reported History Course Vital Signs 02/04/21 02/04/21 02/04/21 22:50 23:13 23:15 Temperature 98.2 F Pulse Rate 64 58 L 62 Respiratory 18 18 18 Rate Blood Pressure 119/66 110/63 115/69 O2 Sat by Pulse 97 96 96 Oximetry 02/04/21 02/04/21 02/05/21 23:30 23:45 00:00 Temperature Pulse Rate 65 59 L 61 Respiratory 18 18 18 Rate Blood Pressure 119/67 103/54 114/61 O2 Sat by Pulse 96 95 97 Oximetry 02/05/21 00:15 Temperature Pulse Rate 62 Respiratory 18 Rate Blood Pressure 115/64 O2 Sat by Pulse 96 Oximetry - Reevaluation(s) Reevaluation #1: 02/05/21 00:03 Record is reviewed Code stroke was paged on patient evaluation Reevaluation #2: 02/05/21 01:04 Patient remains without acute new symptoms Reevaluation #3: 02/05/21 01:04 Informed results and questions are answered - Consultations Consultation #1: Spoke with neurology interventional who state patient does not need intervention, not TPA candidate, no embolus noted. Critical Care Time Critical Care Time: Yes Total Critical Care Time: 31 Disposition Clinical Impression: Transient cerebral ischemia, Amaurosis fugax of right eye Disposition: HOME SELF-CARE Condition: Fair Instructions (If sedation given, give patient instructions): Transient Ischemic Attack (ED) Is patient prescribed a controlled substance at d/c from ED?: No Referrals: Savanah Prather MD [Primary Care Provider] - 1-2 days
[2021-02-04 23:27] LABS: Basophils # (A) 0.1 k/uL (0-0.2); Basophils % (A) 1 %; Eosinophils # (A) 0.7 k/uL (0-0.7); Eosinophils % (A) 6 %; HCT 44.9 % (34.0-46.0); HGB 14.5 gm/dL (11.4-16.0); Lymphocytes # (A) 3.4 k/uL (1.0-4.8); Lymphocytes % (A) 33 %; MCH 29.8 pg (25.0-35.0); MCHC 32.3 g/dL (31.0-37.0); MCV 92.2 fL (80.0-100.0); Mean Platelet Volume 7.3; Monocytes # (A) 0.6 k/uL (0-1.0); Monocytes % (A) 6 %; Neutrophils # (A) 5.2 k/uL (1.3-7.7); Neutrophils % (A) 51 %; Platelet Count 330 k/uL (150-450); RBC 4.87 m/uL (3.80-5.40); RDW 13.4 % (11.5-15.5); WBC 10.3 k/uL (3.8-10.6)
[2021-02-04 23:37] LABS: INR 0.9 (<1.2); Partial Thromboplastin Time 26.2 sec (22.0-30.0)
--- NOTE | 2021-02-04 23:45 | XR ---
EXAMINATION TYPE: XR chest 1V DATE OF EXAM: 02/04/2021 COMPARISON: 10/02/2020 HISTORY: Altered mental status TECHNIQUE: FINDINGS: Heart and mediastinum are normal. There is a chronic linear infiltrate right upper lobe. Yue ng bases are clear. There is no pleural effusion. There are no hilar masses. There are chest leads. IMPRESSION: Right upper lobe linear density and atelectasis. This is probably some pulmonary scarring . No change compared to old exam.
[2021-02-04] MEDS: SODIUM CHLORIDE 0.9% 1,000 ML IV STA (23:49)
[2021-02-04 23:53] LABS: ALT 26 U/L (4-34); AST 26 U/L (14-36); African American GFR (CKD) >90 (>60 ml/min/1.73 sqM); Albumin 3.9 g/dL (3.5-5.0); Alkaline Phosphatase 97 U/L (38-126); Anion Gap 10 mmol/L; Blood Urea Nitrogen 14 mg/dL (7-17); Calcium 9.1 mg/dL (8.4-10.2); Carbon Dioxide 24 mmol/L (22-30); Chloride 104 mmol/L (98-107); Glucose 108 mg/dL (74-99); Non-African American GFR(CKD) >90 (>60 ml/min/1.73 sqM); Potassium 4.1 mmol/L (3.5-5.1); Sodium 138 mmol/L (137-145); Total Bilirubin 0.2 mg/dL (0.2-1.3); Total Protein 7.1 g/dL (6.3-8.2)
--- NOTE | 2021-02-04 23:54 | CT ---
EXAMINATION TYPE: CT brain wo con for TPA DATE OF EXAM: 02/04/2021 COMPARISON: 12/11/2017 HISTORY: AMS CT DLP: 1486.1 mGycm Automated exposure control for dose reduction was used. Ventricles have fairly normal size. There is no mass effect nor midline shift. There is no sign of in tracranial hemorrhage. There is mild cerebral atrophy. Calvarium is intact. IMPRESSION: Mild atrophy. No acute intracranial abnormality. No change.
--- NOTE | 2021-02-04 23:59 | CT ---
EXAMINATION TYPE: CT angio head neck DATE OF EXAM: 02/04/2021 COMPARISON: 10 2032 HISTORY: AMS CT DLP: 1486.1 mGycm Automated exposure control for dose reduction was used. CONTRAST: Performed with IV Contrast, patient injected with 65 mL of Isovue 370. Images obtained from the aortic arch to the vertex of the brain with IV contrast. There is normal branching pattern of the great vessels on the aortic arch. There is bilateral arteria l flow in the subclavian arteries. There is arterial flow in the common internal and external carotid arteries bilaterally. There is arterial flow in both vertebral arteries. There is arterial flow in t he vertebrobasilar artery system. There is no evidence of carotid or vertebral artery aneurysm or dis section. There is no evidence of any significant stenosis. There is arterial flow in the anterior middle and posterior cerebral arteries. There is no evidence o f intracranial aneurysm or neovascularity. There is no mass effect. I see no evidence of intracranial arterial stenosis. There is normal enhancement of the venous sinuses. IMPRESSION: Negative CT angiogram of the neck. Negative CT angiogram of the brain.No adverse change.
[2021-02-05 01:52] VITALS: BP 111/58; PULSE 50; TEMP 97.7
== END 2021-02-05 01:45 | disposition home or self-care (01) ==
LOC: EC 22:48
DX: G45.9 Transient cerebral ischemic attack, unspecified (principal); G45.3 Amaurosis fugax; I25.10 Atherosclerotic heart disease of native coronary artery without angina pectoris; K21.9 Gastro-esophageal reflux disease without esophagitis; M19.90 Unspecified osteoarthritis, unspecified site; G40.909 Epilepsy, unspecified, not intractable, without status epilepticus; F31.9 Bipolar disorder, unspecified; F41.9 Anxiety disorder, unspecified; Z79.890 Hormone replacement therapy; Z79.82 Long term (current) use of aspirin; Z79.899 Other long term (current) drug therapy
CPT/HCPCS: 93005; 80053; 84484; 85025; 85610; 85730; 71045; 70496; 70450; 70498; 99291; 96360; Q9967

== ENCOUNTER → 2021-04-28 | Outpatient (CLI) | payer MEDICARE, OTHER ==
--- NOTE | 2021-04-28 15:28 | XR ---
EXAMINATION TYPE: XR KUB DATE OF EXAM: 04/28/2021 COMPARISON: NONE HISTORY: Pain TECHNIQUE: Single supine KUB image of the abdomen is obtained FINDINGS: Small bowel demonstrates no evidence for dilatation or air fluid levels. Gas and fecal material is seen in non-distended colon. No convincing evidence for pneumoperitoneum. No unusual calcifications. The lung bases are clear. The osseous structures are intact. IMPRESSION: 1. Overall nonobstructive bowel gas pattern.
== END | disposition home or self-care (01) ==
LOC: RADXRMAIN 15:04
PROVIDERS: ATTEND Family Medicine
DX: R10.9 Unspecified abdominal pain (principal); M54.50 Low back pain, unspecified
CPT/HCPCS: 74018

== ENCOUNTER → 2021-07-21 | Outpatient (CLI) | payer MEDICARE, OTHER ==
--- NOTE | 2021-07-25 18:29 | MM ---
Reason for Exam: Screening (asymptomatic). Last mammogram was performed 1 year(s) and 4 month(s) ago. Patient History: Menarche at age 12. Left ovary removed at age 29. Right ovary removed at age 29. Hysterectomy at age 29. Postmenopausal. Maternal unspecified had breast cancer. Risk Values: Tena 5 year model risk: 1.2%. NCI Lifetime model risk: 5.3%. Prior Study Comparison: 06/18/2000 Bilateral Special View Mammogram, [facility]. 11/26/2001 Bilateral Screening Mammogram, [facility]. 03/29/2020 Bilateral Screening Mammogram, [facility]. Tissue Density: There are scattered fibroglandular densities. Findings: Analyzed By CAD. Left-sided upper outer quadrant focal asymmetry is more defined, associated with faint grouped microcalcifications. Further magnification views recommended. Otherwise, no significant change. Overall Assessment: Incomplete: need additional imaging evaluation, BI-RAD 0 Management: Special View Mammogram of the left breast. 1. Additional views left breast to include mag CC, magnified ML, and 3-D ML views. Electronically signed and approved by: Ted Baker M.D. Radiologist
== END | disposition home or self-care (01) ==
LOC: RADMAMWWP 16:26
PROVIDERS: ATTEND Family Medicine
DX: Z12.31 Encounter for screening mammogram for malignant neoplasm of breast (principal); Z78.0 Asymptomatic menopausal state
CPT/HCPCS: 77063; 77067

== ENCOUNTER → 2021-08-03 | Outpatient (CLI) | payer MEDICARE, OTHER ==
--- NOTE | 2021-08-03 14:19 | MM ---
Reason for Exam: Additional evaluation requested from abnormal screening. Last screening mammogram was performed less than 1 month ago. Patient History: Menarche at age 12. Left ovary removed at age 29. Right ovary removed at age 29. Hysterectomy at age 29. Postmenopausal. Maternal unspecified had breast cancer. Risk Values: Tena 5 year model risk: 1.2%. NCI Lifetime model risk: 5.3%. Prior Study Comparison: 06/18/2000 Bilateral Special View Mammogram, [facility]. 11/26/2001 Bilateral Screening Mammogram, [facility]. 03/29/2020 Bilateral Screening Mammogram, [facility]. 07/21/2021 Bilateral MG 3D screening mammo w/cad, [facility]. Tissue Density: Left: The breast tissue is heterogeneously dense. This may lower the sensitivity of mammography. Findings: Analyzed By CAD. There is a cluster of microcalcifications upper outer left breast 7.7 cm from the nipple with small associated density. Tissue diagnosis is recommended which is felt to be amenable to stereotactic core biopsy. Overall Assessment: Suspicious, BI-RAD 4 Management: Stereotactic Core Biopsy of the left breast. A clinical breast exam by your physician is recommended on an annual basis and results should be correlated with mammographic findings. This exam should not preclude additional follow-up of suspicious palpable abnormalities. Results were given to the patient verbally at the time of exam. Electronically signed and approved by: Marek Valente M.D. Radiologis
== END | disposition home or self-care (01) ==
LOC: RADMAMWWP 13:43
PROVIDERS: ATTEND Family Medicine
DX: R92.8 Other abnormal and inconclusive findings on diagnostic imaging of breast (principal); Z78.0 Asymptomatic menopausal state
CPT/HCPCS: 77065; G0279; 77061

== ENCOUNTER 2021-10-21 01:18 | Emergency (ER) | payer MEDICARE, OTHER ==
[2021-10-21 01:25] VITALS: RESP 16; TEMP 97.4
--- NOTE | 2021-10-21 01:34 | ED ---
Fall HPI - General Chief Complaint: Fall Stated Complaint: Fall Time Seen by Provider: 10/21/21 01:30 Source: patient, EMS, RN notes reviewed, old records reviewed, Caregiver Mode of arrival: EMS Limitations: no limitations - History of Present Illness Initial Comments: This is a 66-year-old female to the emergency department for evaluation she has a chronic pain. Patient comes in with falling out of her lift chair she has history of CPM fell backwards out of her lift chair she did hit her head she is complaining of head pain and neck pain and shoulder pain. 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 Witnessed: yes, by family Place Fall Occurred: home Loss of Consciousness: none Prolonged Down Time?: no Symptoms Prior to Fall: none Location: head, neck, back Severity: moderate Severity scale (1-10): 7 Quality: sharp, stabbing Associated Symptoms: denies - Related Data Home Medications Medication Instructions Recorded Confirmed Levothyroxine Sodium [Synthroid] 25 mcg PO QAM 08/11/13 09/13/21 Primidone [Mysoline] 50 mg PO BID 08/11/13 09/13/21 Zinc 50 mg PO DAILY 09/02/15 09/13/21 Aspirin [Adult Low Dose Aspirin EC] 81 mg PO DAILY 03/19/19 09/13/21 LORazepam [Ativan] 1 mg PO TID PRN 03/19/19 09/13/21 Biotin [Biotin Disolve] 5,000 mcg PO DAILY 03/31/20 09/13/21 Cyanocobalamin (Vitamin B-12) 1,000 mcg PO QMONTHLY 03/31/20 09/13/21 [Vitamin B-12] Multivitamins, Thera [Multivitamin 1 tab PO DAILY 03/31/20 09/13/21 (formulary)] Hydrocodone/Acetaminophen 1 tab PO Q6HR 09/13/21 09/13/21 [Hydrocodone/Acetaminophen 5-325] Loratadine [Claritin] 10 mg PO DAILY 09/13/21 09/13/21 Allergies Allergy/AdvReac Type Severity Reaction Status Date / Time codeine Allergy Unknown Verified 10/21/21 01:20 erythromycin base Allergy Rash/Hives Verified 10/21/21 01:20 [From E-Mycin] ibuprofen Allergy FLUSHED Verified 10/21/21 01:20 FEELING ACROSS UPPER CHEST Penicillins Allergy hallucinati Verified 10/21/21 01:20 ons,hives Tetracyclines Allergy Rash/Hives Verified 10/21/21 01:20 morphine AdvReac Rash/Hives Verified 10/21/21 01:20 plastic bandaids Allergy welts on Uncoded 10/21/21 01:20 skin Review of Systems ROS Statement: Those systems with pertinent positive or pertinent negative responses have been documented in the HPI. ROS Other: All systems not noted in ROS Statement are negative. Past Medical History Past Medical History: Coronary Artery Disease (CAD), Chest Pain / Angina, CVA/TIA, GERD/Reflux, Musculoskeletal Disorder, Neurologic Disorder, Osteoarthritis (OA), Pneumonia, Seizure Disorder, Thyroid Disorder Additional Past Medical History / Comment(s): received both Moderna Covid [place] ccines,central pontinemyelinilysis-(cpm), myoclonic jerks a form of seizures frequestly occurs, tremors, pt stated 10 cva-lt sided weakness, occ trouble swallowing,, H/O cardiac arrest at 12 year old post Appendectomy-1967.falls, tinnitus,bronchitis, scoliosis, endometerois, uterine fibroids, gout in past, uti, sinus problems, fx to rt ankle,rtand lt wrist, lt elbow,8 ribs, peptic ulcer History of Any Multi-Drug Resistant Organisms: None Reported Past Surgical History: Appendectomy, Heart Catheterization, Hysterectomy Additional Past Surgical History / Comment(s): 2 uterine suspension then Total abdominal hysterectomy, lasik eye sx sophia, d&c,bronchoscopy x3, lt hand sx. Past Anesthesia/Blood Transfusion Reactions: No Reported Reaction Additional Past Anesthesia/Blood Transfusion Reaction / Comment(s): blood transfusions-no reaction Past Psychological History: Anxiety, Bipolar, Depression Smoking Status: Former smoker Past Alcohol Use History: None Reported Past Drug Use History: Marijuana - Past Family History Mother Family Medical History: Diabetes Mellitus Father Family Medical History: Cancer Brother(s) Family Medical History: Coronary Artery Disease (CAD) Sister(s) Family Medical History: No Reported History Daughter(s) Family Medical History: No Reported History General Exam Limitations: no limitations General appearance: alert, in no apparent distress Head exam: Present: atraumatic, normocephalic, normal inspection Eye exam: Present: normal appearance, PERRL, EOMI. Absent: scleral icterus, conjunctival injection, periorbital swelling ENT exam: Present: normal exam, mucous membranes moist Neck exam: Present: normal inspection. Absent: tenderness, meningismus, lymphadenopathy Respiratory exam: Present: normal lung sounds bilaterally. Absent: respiratory distress, wheezes, rales, rhonchi, stridor Cardiovascular Exam: Present: regular rate, normal rhythm, normal heart sounds. Absent: systolic murmur, diastolic murmur, rubs, gallop, clicks GI/Abdominal exam: Present: soft, normal bowel sounds. Absent: distended, tenderness, guarding, rebound, rigid Extremities exam: Present: normal inspection, full ROM, normal capillary refill. Absent: tenderness, pedal edema, joint swelling, calf tenderness Back exam: Present: normal inspection Neurological exam: Present: alert, oriented X3, CN II-XII intact Psychiatric exam: Present: normal affect, normal mood Skin exam: Present: warm, dry, intact, normal color. Absent: rash Course Vital Signs 10/21/21 01:21 Temperature 97.4 F L Pulse Rate 73 Respiratory 16 Rate Blood Pressure 119/71 O2 Sat by Pulse 98 Oximetry - Reevaluation(s) Reevaluation #1: 10/21/21 02:13 Medical records reviewed Reevaluation #2: 10/21/21 03:44 Patient is controlled Reevaluation #3: 10/21/21 03:44 Patient informed results and questions are answered Medical Decision Making - Medical Decision Making 66 female to the ER for evaluation patient presenting for evaluation of fall fall with no injury. Imaging is normal patient can be discharged home - EKG Data -: EKG Interpreted by Me (EKG is sinus bradycardia 58 WI 179 QRS 94 QTC 4:15) - Radiology Data Radiology results: report reviewed (CT brain C-spine chest and pelvis x-ray are negative for traumatic injury), image reviewed Disposition Clinical Impression: Fall Disposition: HOME SELF-CARE Condition: Good Instructions (If sedation given, give patient instructions): Fall Prevention for Older Adults (ED) Is patient prescribed a controlled substance at d/c from ED?: No Referrals: Savanah Prather MD [Primary Care Provider] - 1-2 days Time of Disposition: 03:45
[2021-10-21] MEDS ORDERED: HYDROmorphone 1 MG/ML 1 ML SYRINGE IVP STA (01:49)
--- NOTE | 2021-10-21 03:10 | CT ---
EXAMINATION TYPE: CT brain jerry cartagena con DATE OF EXAM: 10/21/2021 COMPARISON: 02/04/2021 HISTORY: FALL BACKWARDS HIT HEAD ON CORNER OF "SOMETHING" CT DLP: 1385.1 mGycm Automated exposure control for dose reduction was used. There is cerebral cortical atrophy. There is no mass effect Shift. There is no sign of intracranial hemorrhage. The calvarium is intact. The cervical vertebrae are fairly normal spacing and alignment. Posterior elements are intact. Facet joints are intact. Prevertebral soft tissues are intact. There are fibrotic changes in the upper lobe s bilaterally. IMPRESSION: Cerebral atrophy. No acute intracranial abnormality. Negative CT scan of the cervical spine. No fract ure.
--- NOTE | 2021-10-21 03:32 | XR ---
EXAMINATION TYPE: XR chest 1V DATE OF EXAM: 10/21/2021 COMPARISON: NONE HISTORY: Fall. Pain TECHNIQUE: Single view FINDINGS: Heart is normal. There is coarse perihilar interstitial density. No heart failure. No pleur al effusion. Trachea is midline. No pneumothorax. IMPRESSION: There is some mild perihilar interstitial infiltrate which is new compared to exam normal heart.
--- NOTE | 2021-10-21 03:33 | XR ---
EXAMINATION TYPE: XR pelvis AP view DATE OF EXAM: 10/21/2021 COMPARISON: NONE HISTORY: Fall. Pain TECHNIQUE: Single view FINDINGS: Pelvic ring is intact. Proximal femurs and hip joints are intact. Sacroiliac joints are nor mal. IMPRESSION: Negative exam. No fracture.
[2021-10-21 04:10] VITALS: BP 113/68; PULSE 88
== END 2021-10-21 04:09 | disposition home or self-care (01) ==
LOC: EC 01:18
DX: M54.2 Cervicalgia (principal); I25.10 Atherosclerotic heart disease of native coronary artery without angina pectoris; K21.9 Gastro-esophageal reflux disease without esophagitis; Z79.83 Long term (current) use of bisphosphonates; Z79.899 Other long term (current) drug therapy; E07.9 Disorder of thyroid, unspecified; Z79.82 Long term (current) use of aspirin; Z87.891 Personal history of nicotine dependence; Z88.5 Allergy status to narcotic agent; Z88.3 Allergy status to other anti-infective agents; Z88.0 Allergy status to penicillin; Z91.09 Other allergy status, other than to drugs and biological substances; Z88.1 Allergy status to other antibiotic agents; W19.XXXA Unspecified fall, initial encounter
CPT/HCPCS: 99284; 96374; 72170; 71045; 72125; 70450; J1170

== ENCOUNTER → 2021-10-27 | Outpatient (CLI) | payer MEDICARE, OTHER ==
--- NOTE | 2021-10-28 08:30 | XR ---
EXAMINATION TYPE: XR chest 2V DATE OF EXAM: 10/27/2021 COMPARISON: 10/21/2021, 11/16/2019 INDICATION: Left-sided chest pain TECHNIQUE: Frontal and lateral views of the chest are obtained. FINDINGS: The heart size is normal. The pulmonary vasculature is normal. There is a nodule within the right infrahilar region present previously and could be a granuloma. Thi s was present previously. IMPRESSION: 1. No acute pulmonary process.
== END | disposition home or self-care (01) ==
LOC: RADXRMAIN 15:45
PROVIDERS: ATTEND Family Medicine
DX: R05.9 Cough, unspecified (principal); R93.89 Abnormal findings on diagnostic imaging of other specified body structures
CPT/HCPCS: 71046

== ENCOUNTER 2022-05-08 20:08 | Emergency (ER) | payer MEDICARE, OTHER ==
[2022-05-08 20:20] VITALS: RESP 16; TEMP 97.2
--- NOTE | 2022-05-08 20:33 | ED ---
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 The patient stated that this is happened previously and she has had a workup by the emergency department, her primary care physician, and neurologist but denied of any known etiology. The patient came today once again for more episodes and to try and get more answers. The patient denied any other acute pain or complaints at this time. - Related Data Home Medications Medication Instructions Recorded Confirmed Levothyroxine Sodium [Synthroid] 25 mcg PO QAM 08/11/13 09/13/21 Primidone [Mysoline] 50 mg PO BID 08/11/13 09/13/21 Zinc 50 mg PO DAILY 09/02/15 09/13/21 Aspirin [Adult Low Dose Aspirin EC] 81 mg PO DAILY 03/19/19 09/13/21 LORazepam [Ativan] 1 mg PO TID PRN 03/19/19 09/13/21 Biotin [Biotin Disolve] 5,000 mcg PO DAILY 03/31/20 09/13/21 Cyanocobalamin (Vitamin B-12) 1,000 mcg PO QMONTHLY 03/31/20 09/13/21 [Vitamin B-12] Multivitamins, Thera [Multivitamin 1 tab PO DAILY 03/31/20 09/13/21 (formulary)] Hydrocodone/Acetaminophen 1 tab PO Q6HR 09/13/21 09/13/21 [Hydrocodone/Acetaminophen 5-325] Loratadine [Claritin] 10 mg PO DAILY 09/13/21 09/13/21 Allergies Allergy/AdvReac Type Severity Reaction Status Date / Time codeine Allergy Unknown Verified 10/21/21 01:20 erythromycin base Allergy Rash/Hives Verified 10/21/21 01:20 [From E-Mycin] ibuprofen Allergy FLUSHED Verified 10/21/21 01:20 FEELING ACROSS UPPER CHEST Penicillins Allergy hallucinati Verified 10/21/21 01:20 ons,hives Tetracyclines Allergy Rash/Hives Verified 10/21/21 01:20 morphine AdvReac Rash/Hives Verified 10/21/21 01:20 plastic bandaids Allergy welts on Uncoded 10/21/21 01:20 skin Review of Systems ROS Statement: Those systems with pertinent positive or pertinent negative responses have been documented in the HPI. ROS Other: All systems not noted in ROS Statement are negative. Past Medical History Past Medical History: Coronary Artery Disease (CAD), Chest Pain / Angina, CVA/TIA, GERD/Reflux, Musculoskeletal Disorder, Neurologic Disorder, Osteoarthritis (OA), Pneumonia, Seizure Disorder, Thyroid Disorder Additional Past Medical History / Comment(s): received both Moderna Covid Vaccines,central pontinemyelinilysis-(cpm), myoclonic jerks a form of seizures frequestly occurs, tremors, pt stated 10 cva-lt sided weakness, occ trouble swallowing,, H/O cardiac arrest at 12 year old post Appendectomy-1967.falls, tinnitus,bronchitis, scoliosis, endometerois, uterine fibroids, gout in past, uti, sinus problems, fx to rt ankle,rtand lt wrist, lt elbow,8 ribs, peptic ulcer History of Any Multi-Drug Resistant Organisms: None Reported Past Surgical History: Appendectomy, Heart Catheterization, Hysterectomy Additional Past Surgical History / Comment(s): 2 uterine suspension then Total abdominal hysterectomy, lasik eye sx sophia, d&c,bronchoscopy x3, lt hand sx. Past Anesthesia/Blood Transfusion Reactions: No Reported Reaction Additional Past Anesthesia/Blood Transfusion Reaction / Comment(s): blood transfusions-no reaction Past Psychological History: Anxiety, Bipolar, Depression Smoking Status: Former smoker Past Alcohol Use History: None Reported Past Drug Use History: Marijuana - Past Family History Mother Family Medical History: Diabetes Mellitus Father Family Medical History: Cancer Brother(s) Family Medical History: Coronary Artery Disease (CAD) Sister(s) Family Medical History: No Reported History Daughter(s) Family Medical History: No Reported History General Exam Limitations: no limitations General appearance: alert, in no apparent distress Head exam: Present: atraumatic, normocephalic, normal inspection Eye exam: Present: normal appearance, PERRL Pupils: Present: normal accommodation ENT exam: Present: normal exam, normal oropharynx, mucous membranes moist Neck exam: Present: normal inspection, full ROM Respiratory exam: Present: normal lung sounds bilaterally Cardiovascular Exam: Present: regular rate, normal rhythm, normal heart sounds GI/Abdominal exam: Present: soft, normal bowel sounds Extremities exam: Present: normal inspection, full ROM Back exam: Present: normal inspection, full ROM Neurological exam: Present: alert, oriented X3, CN II-XII intact Psychiatric exam: Present: normal affect, normal mood Skin exam: Present: warm, dry Course Vital Signs 05/08/22 05/08/22 20:15 22:02 Temperature 97.2 F L Pulse Rate 82 76 Respiratory 16 16 Rate Blood Pressure 132/91 122/70 O2 Sat by Pulse 97 96 Oximetry EKG Findings - EKG Comments: EKG Findings:: An EKG was obtained and was interpreted by myself showing a rate of 78, MD interval 179, QRS duration of 90 and QTC of 419. This EKG showed a no rmal sinus rhythm with no ST segment elevation or depression noted. Medical Decision Making - Medical Decision Making Was pt. sent in by a medical professional or institution ([facility], [facility], urgent care, hospital, or group home...) When possible be specific @ -No Did you speak to anyone other than the patient for history (EMS, parent, family, police, friend...)? What history was obtained from this source @ -No Did you review nursing and triage notes (agree or disagree)? Why? @ -I reviewed and agree with nursing and triage notes Were old charts reviewed (outside hosp., previous admission, EMS record, old EKG, old radiological studies, urgent care reports/EKG's, group home records)? Report findings @ -No old charts were reviewed Differential Diagnosis (chest pain, altered mental status, abdominal pain women, abdominal pain men, vaginal bleeding, weakness, fever, dyspnea, syncope, headache, dizziness, GI bleed, back pain, seizure, CVA, palpatations, mental health)? @ -Pneumothorax, chest wall muscle strain, pneumonia EKG interpreted by me (3pts min.). @ -As above X-rays interpreted by me (1pt min.). @ -Chest Xray was obtained and was interpreted by myself showing no acute process. CT interpreted by me (1pt min.). @ -None done U/S interpreted by me (1pt. min.). @ -None done What testing was considered but not performed or refused? (CT, X-rays, U/S, labs)? Why? @ -None What meds were considered but not given or refused? Why? @ -None Did you discuss the management of the patient with other professionals (professionals i.e. DrAnna, PA, [facility] SHAVER, lab, RT, psych nurse, administrator social welfare, library historian, teacher, financial administration officer, medical case worker)? Give summary @ -No Was smoking cessation discussed for >3mins.? @ -No Was critical care preformed (if so, how long)? @ -No Were there social determinants of health that impacted care today? How? (Homelessness, low income, unemployed, alcoholism, drug addiction, transportation, low edu. Level, literacy, decrease access to med. care, halfway, rehab)? @ -No Was there de-escalation of care discussed even if they declined (Discuss DNR or withdrawal of care, Hospice)? DNR status @ -No What co-morbidities impacted this encounter? (DM, HTN, Smoking, COPD, CAD, Cancer, CVA, ARF, Chemo, Hep., AIDS, mental health diagnosis, sleep apnea, morbid obesity)? @ -Significant past medical history including "long-haul COVID-19," asthma Was patient admitted / discharged? Hospital course, mention meds given and route, prescriptions, significant lab abnormalities, going to OR and other pertinent info. @ -The patient was seen and evaluated emergency department. Physical exam, the patient was resting in bed without any acute distress. Vital signs admission were stable. Laboratory workup was obtained due to the patient's vague symptoms , all laboratory workup was within normal limits and the patient had no etiology that was known for her symptoms. The patient arty been evaluated by multiple specialists regarding these symptoms and therefore no further workup will be done at this time. The patient was told that the workup was negative and she was agreeable and okay with this. The patient was advised to follow-up once again with her primary care physician for continued workup and evaluation. The patient was understanding of this and all her questions were answered. The patient was discharged home in stable condition with her . Undiagnosed new problem with uncertain prognosis? @ -No Drug Therapy requiring intensive monitoring for toxicity (Heparin, Nitro, I nsulin, Cardizem)? @ -No Were any procedures done? @ -No Diagnosis/symptom? @ -Chest pain, NOS Acute, or Chronic, or Acute on Chronic? @ -Chronic Uncomplicated (without systemic symptoms) or Complicated (systemic symptoms)? @ -Uncomplicated Side effects of treatment? @ -No Exacerbation, Progression, or Severe Exacerbation? @ -No Poses a threat to life or bodily function? How? (Chest pain, USA, CA, pneumonia, PE, COPD, DKA, ARF, appy, cholecystitis, CVA, Diverticulitis, Homicidal, Suicidal, threat to staff... and all critical care pts) @ -No - Lab Data Result diagrams: 05/08/22 20:27 05/08/22 20: Lab Results 05/08/22 05/08/22 05/08/22 Range/Units 20:27 20:27 20:27 WBC 9.3 (3.8-10.6) k/uL RBC 5.02 (3.80-5.40) m/uL Hgb 14.7 (11.4-16.0) gm/dL Hct 43.9 (34.0-46.0) % MCV 87.5 (80.0-100.0) fL MCH 29.3 (25.0-35.0) pg MCHC 33.5 (31.0-37.0) g/dL RDW 13.5 (11.5-15.5) % Plt Count 291 (150-450) k/uL MPV 7.2 Neutrophils % 54 % Lymphocytes % 33 % Monocytes % 5 % Eosinophils % 4 % Basophils % 1 % Neutrophils # 5.0 (1.3-7.7) k/uL Lymphocytes # 3.1 (1.0-4.8) k/uL Monocytes # 0.5 (0-1.0) k/uL Eosinophils # 0.4 (0-0.7) k/uL Basophils # 0.1 (0-0.2) k/uL PT 10.3 (9.0-12.0) sec INR 1.0 (<1.2) APTT 25.5 (22.0-30.0) sec Sodium 137 (137-145) mmol/L Potassium 4.2 (3.5-5.1) mmol/L Chloride 108 H (98-107) mmol/L Carbon Dioxide 22 (22-30) mmol/L Anion Gap 7 mmol/L BUN 15 (7-17) mg/dL Creatinine 0.57 (0.52-1.04) mg/dL Est GFR (CKD-EPI)AfAm >90 (>60 ml/min/1.73 sqM) Est GFR (CKD-EPI)NonAf >90 (>60 ml/min/1.73 sqM) Glucose 96 (74-99) mg/dL Calcium 9.0 (8.4-10.2) mg/dL Magnesium 2.1 (1.6-2.3) mg/dL Total Bilirubin 0.5 (0.2-1.3) mg/dL AST 28 (14-36) U/L ALT 32 (4-34) U/L Alkaline Phosphatase 77 (38-126) U/L Troponin I (0.000-0.034) ng/mL Total Protein 7.3 (6.3-8.2) g/dL Albumin 4.1 (3.5-5.0) g/dL Lipase 74 (23-300) U/L 05/08/ Range/Units 20:27 WBC (3.8-10.6) k/uL RBC (3.80-5.40) m/uL Hgb (11.4-16.0) gm/dL Hct (34.0-46.0) % MCV (80.0-100.0) fL MCH (25.0-35.0) pg MCHC (31.0-37.0) g/dL RDW (11.5-15.5) % Plt Count (150-450) k/uL MPV Neutrophils % % Lymphocytes % % Monocytes % % Eosinophils % % Basophils % % Neutrophils # (1.3-7.7) k/uL Lymphocytes # (1.0-4.8) k/uL Monocytes # (0-1.0) k/uL Eosinophils # (0-0.7) k/uL Basophils # (0-0.2) k/uL PT (9.0-12.0) sec INR (<1.2) APTT (22.0-30.0) sec Sodium (137-145) mmol/L Potassium (3.5-5.1) mmol/L Chloride (98-107) mmol/L Carbon Dioxide (22-30) mmol/L Anion Gap mmol/L BUN (7-17) mg/dL Creatinine (0.52-1.04) mg/dL Est GFR (CKD-EPI)AfAm (>60 ml/min/1.73 sqM) Est GFR (CKD-EPI)NonAf (>60 ml/min/1.73 sqM) Glucose (74-99) mg/dL Calcium (8.4-10.2) mg/dL Magnesium (1.6-2.3) mg/dL Total Bilirubin (0.2-1.3) mg/dL AST (14-36) U/L ALT (4-34) U/L Alkaline Phosphatase (38-126) U/L Troponin I <0.012 (0.000-0.034) ng/mL Total Protein (6.3-8.2) g/dL Albumin (3.5-5.0) g/dL Lipase (23-300) U/L Disposition Clinical Impression: Chest pain Disposition: HOME SELF-CARE Condition: Stable Instructions (If sedation given, give patient instructions): Chest Pain (ED) Is patient prescribed a controlled substance at d/c from ED?: No Referrals: Savanah Prather MD [Primary Care Provider] - 1-2 days Time of Disposition: 21:30
[2022-05-08 20:54] LABS: Basophils # (A) 0.1 k/uL (0-0.2); Basophils % (A) 1 %; Eosinophils # (A) 0.4 k/uL (0-0.7); Eosinophils % (A) 4 %; HCT 43.9 % (34.0-46.0); HGB 14.7 gm/dL (11.4-16.0); Lymphocytes # (A) 3.1 k/uL (1.0-4.8); Lymphocytes % (A) 33 %; MCH 29.3 pg (25.0-35.0); MCHC 33.5 g/dL (31.0-37.0); MCV 87.5 fL (80.0-100.0); Mean Platelet Volume 7.2; Monocytes # (A) 0.5 k/uL (0-1.0); Monocytes % (A) 5 %; Neutrophils % (A) 54 %; Platelet Count 291 k/uL (150-450); RBC 5.02 m/uL (3.80-5.40); RDW 13.5 % (11.5-15.5); WBC 9.3 k/uL (3.8-10.6)
[2022-05-08 21:05] LABS: Partial Thromboplastin Time 25.5 sec (22.0-30.0); Prothrombin Time 10.3 sec (9.0-12.0)
[2022-05-08 21:08] LABS: ALT 32 U/L (4-34); AST 28 U/L (14-36); African American GFR (CKD) >90 (>60 ml/min/1.73 sqM); Albumin 4.1 g/dL (3.5-5.0); Alkaline Phosphatase 77 U/L (38-126); Anion Gap 7 mmol/L; Blood Urea Nitrogen 15 mg/dL (7-17); Carbon Dioxide 22 mmol/L (22-30); Chloride 108 mmol/L (98-107); Glucose 96 mg/dL (74-99); Lipase 74 U/L (23-300); Magnesium 2.1 mg/dL (1.6-2.3); Non-African American GFR(CKD) >90 (>60 ml/min/1.73 sqM); Potassium 4.2 mmol/L (3.5-5.1); Sodium 137 mmol/L (137-145); Total Bilirubin 0.5 mg/dL (0.2-1.3); Total Protein 7.3 g/dL (6.3-8.2)
--- NOTE | 2022-05-08 21:30 | XR ---
EXAMINATION TYPE: XR chest 2V DATE OF EXAM: 05/08/2022 COMPARISON: 10/27/2021 HISTORY: Chest pain TECHNIQUE: 2 views FINDINGS: Heart and mediastinum are normal. Lungs are clear. The diaphragm is normal. Bony thorax is intact. There is one similar calcified granuloma in the right middle lobe. IMPRESSION: No active cardiopulmonary disease. Normal heart. No change.
[2022-05-08 22:04] VITALS: BP 122/70; PULSE 76
== END 2022-05-08 22:03 | disposition home or self-care (01) ==
LOC: EC 20:08
DX: R07.9 Chest pain, unspecified (principal); I25.10 Atherosclerotic heart disease of native coronary artery without angina pectoris; M19.90 Unspecified osteoarthritis, unspecified site; E07.9 Disorder of thyroid, unspecified; Z86.73 Personal history of transient ischemic attack (TIA), and cerebral infarction without residual deficits; F41.9 Anxiety disorder, unspecified; F31.9 Bipolar disorder, unspecified; Z87.891 Personal history of nicotine dependence; F12.90 Cannabis use, unspecified, uncomplicated; Z88.0 Allergy status to penicillin; Z88.5 Allergy status to narcotic agent; Z88.1 Allergy status to other antibiotic agents; Z88.8 Allergy status to other drugs, medicaments and biological substances; Z91.048 Other nonmedicinal substance allergy status; Z79.890 Hormone replacement therapy; Z79.82 Long term (current) use of aspirin; Z79.899 Other long term (current) drug therapy
CPT/HCPCS: 36415; 71046; 80053; 83690; 83735; 84484; 85025; 85610; 85730; 93005; 99285

== ENCOUNTER 2022-08-24 15:45 | Emergency (ER) | payer MEDICARE, OTHER ==
[2022-08-24 15:56] VITALS: RESP 18; TEMP 98.1
--- NOTE | 2022-08-24 16:37 | XR ---
EXAMINATION TYPE: XR foot complete LT DATE OF EXAM: 08/24/2022 CLINICAL HISTORY: pain TECHNIQUE: Frontal, lateral and oblique images of the left foot are obtained. COMPARISON: None. FINDINGS: There is transverse lucency noted to involve the distal tibia on image 2 of 3. Dedicated e valuation of the ankle is advised. There is also a well-corticated ossific density adjacent to the la teral malleolar tip. There is no acute fracture/dislocation evident of the left foot. The joint space s appear within normal limits. The overlying soft tissue appears unremarkable. IMPRESSION: There is transverse lucency noted to involve the distal tibia on image 2 of 3. Dedicated evaluation o f the ankle is advised.
--- NOTE | 2022-08-24 16:59 | XR ---
EXAMINATION TYPE: XR ankle complete LT DATE OF EXAM: 08/24/2022 COMPARISON: Same day foot x-ray HISTORY: Pain TECHNIQUE: 3 views of the left ankle are submitted for evaluation. FINDINGS: Lucency noted on the left foot x-ray is not reproduced within the distal tibia. There is no evidence for fracture or dislocation. Ankle mortise is intact. Soft tissues are within normal limits . IMPRESSION: 1. No evidence for acute fracture.
--- NOTE | 2022-08-24 17:30 | ED ---
Lower Extremity Injury HPI - General Chief Complaint: Extremity Injury, Lower Stated Complaint: Left ankle pain Time Seen by Provider: 08/24/22 16:02 Source: patient, EMS Mode of arrival: EMS - History of Present Illness Initial Comments: Patient is 67-year-old female who presents the emergency department for left foot injury. Patient states her foot got caught in her motorcycle while she was working on it today. The motorcycle was off it was not moving. States her foot twisted and she heard a crack. She has pain in the middle of her foot which radiates to her ankle. Pain worse with ambulation. Denies numbness and tingling. - Related Data Home Medications Medication Instructions Recorded Confirmed Levothyroxine Sodium [Synthroid] 25 mcg PO DAILY 08/11/13 08/24/22 Primidone [Mysoline] 50 mg PO HS 08/11/13 08/24/22 LORazepam [Ativan] 2 mg PO HS 03/19/19 08/24/22 Hydrocodone/Acetaminophen 1 tab PO BID PRN 09/13/21 08/24/22 [Hydrocodone/Acetaminophen 5-325] Albuterol Sulfate [Albuterol 2 puff PO RT-Q6H PRN 08/24/22 08/24/22 Sulfate Hfa] Flonase Headache And Allergy 1 tab PO DAILY 08/24/22 08/24/22 Relief Tablets Fluticasone Propionate 110 Mcg 2 puff INHALATION RT-BID 08/24/22 08/24/22 [Flovent 110 Mcg Inhaler] Naloxegol Oxalate [Movantik] 12.5 mg PO HS 08/24/22 08/24/22 Allergies Allergy/AdvReac Type Severity Reaction Status Date / Time codeine Allergy Unknown Verified 08/24/22 17:36 erythromycin base Allergy Rash/Hives Verified 08/24/22 17:36 [From E-Mycin] ibuprofen Allergy FLUSHED Verified 08/24/22 17:36 FEELING ACROSS UPPER CHEST Penicillins Allergy hallucinati Verified 08/24/22 17:36 ons,hives Tetracyclines Allergy Rash/Hives Verified 08/24/22 17:36 morphine AdvReac Rash/Hives Verified 08/24/22 17:36 plastic bandaids Allergy welts on Uncoded 08/24/22 17:36 skin Review of Systems ROS Statement: Those systems with pertinent positive or pertinent negative responses have been documented in the HPI. ROS Other: All systems not noted in ROS Statement are negative. Past Medical History Past Medical History: Coronary Artery Disease (CAD), Chest Pain / Angina, CVA/TIA, GERD/Reflux, Musculoskeletal Disorder, Neurologic Disorder, Osteoarthritis (OA), Pneumonia, Seizure Disorder, Thyroid Disorder Additional Past Medical History / Comment(s): received both Moderna Covid Vaccines,central pontinemyelinilysis-(cpm), myoclonic jerks a form of seizures frequestly occurs, tremors, pt stated 10 cva-lt sided weakness, occ trouble swallowing,, H/O cardiac arrest at 12 year old post Appendectomy-1967.falls, tinnitus,bronchitis, scoliosis, endometerois, uterine fibroids, gout in past, uti, sinus problems, fx to rt ankle,rtand lt wrist, lt elbow,8 ribs, peptic ulcer History of Any Multi-Drug Resistant Organisms: None Reported Past Surgical History: Appendectomy, Heart Catheterization, Hysterectomy Additional Past Surgical History / Comment(s): 2 uterine suspension then Total abdominal hysterectomy, lasik eye sx sophia, d&c,bronchoscopy x3, lt hand sx. Past Anesthesia/Blood Transfusion Reactions: No Reported Reaction Additional Past Anesthesia/Blood Transfusion Reaction / Comment(s): blood transfusions-no reaction Past Psychological History: Anxiety, Bipolar, Depression Smoking Status: Former smoker Past Alcohol Use History: None Reported Past Drug Use History: Marijuana - Past Family History Mother Family Medical History: Diabetes Mellitus Father Family Medical History: Cancer Brother(s) Family Medical History: Coronary Artery Disease (CAD) Sister(s) Family Medical History: No Reported History Daughter(s) Family Medical History: No Reported History General Exam General appearance: alert, in no apparent distress Head exam: Present: atraumatic, normocephalic, normal inspection Eye exam: Present: normal appearance, PERRL, EOMI. Absent: scleral icterus, conjunctival injection, periorbital swelling Respiratory exam: Present: normal lung sounds bilaterally. Absent: respiratory distress, wheezes, rales, rhonchi, stridor Cardiovascular Exam: Present: regular rate, normal rhythm, normal heart sounds. Absent: systolic murmur, diastolic murmur, rubs, gallop, clicks Extremities exam: Present: other (Tenderness to middle dorsal foot with bruising. No bruising, swelling, erythema, tenderness to ankle. LLE is neurovascularly intact, full ROM. ) Neurological exam: Present: alert, oriented X3, CN II-XII intact Psychiatric exam: Present: normal affect, normal mood Skin exam: Present: warm, dry, intact, normal color. Absent: rash Course Vital Signs 08/24/22 08/24/22 15:53 18:02 Temperature 98.1 F 98.1 F Pulse Rate 73 72 Respiratory 18 18 Rate Blood Pressure 118/64 112/64 O2 Sat by Pulse 98 98 Oximetry Procedures - Orthopedic Splinting/Casting Injury #1 Lower Extremity Immobilizer: Blake wrap Other Orthopedic Equipment: crutches Medical Decision Making - Medical Decision Making Was pt. sent in by a medical professional or institution (, PA, HARNESS RIGGER, urgent care, hospital, or care home...) When possible be specific @ -No Did you speak to anyone other than the patient for history (EMS, parent, family, police, friend...)? What history was obtained from this source @ -No Did you review nursing and triage notes (agree or disagree)? Why? @ -I reviewed and agree with nursing and triage notes Were old charts reviewed (outside hosp., previous admission, EMS record, old EKG, old radiological studies, urgent care reports/EKG's, care home records)? Report findings @ -No old charts were reviewed Differential Diagnosis (chest pain, altered mental status, abdominal pain women, abdominal pain men, vaginal bleeding, weakness, fever, dyspnea, syncope, headache, dizziness, GI bleed, back pain, seizure, CVA, palpatations, mental health)? @ -Sprain, fracture, contusion. This list is not meant to be all-inclusive EKG interpreted by me (3pts min.). @ -As above X-rays interpreted by me (1pt min.). @ -No acute fracture or dislocation in the left foot or ankle CT interpreted by me (1pt min.). @ -None done U/S interpreted by me (1pt. min.). @ -None done What testing was considered but not performed or refused? (CT, X-rays, U/S, labs)? Why? @ -None What meds were considered but not given or refused? Why? @ -None Did you discuss the management of the patient with other professionals (professionals i.e. , PA, HARNESS RIGGER, lab, RT, psych nurse, social scientist, office technologist, teacher, correction officer, caser up)? Give summary @ -No Was smoking cessation discussed for >3mins.? @ -No Was critical care preformed (if so, how long)? @ -No Were there social determinants of health that impacted care today? How? (Homelessness, low income, unemployed, alcoholism, drug addiction, transportation, low edu. Level, literacy, decrease access to med. care, residential, rehab)? @ -No Was there de-escalation of care discussed even if they declined (Discuss DNR or withdrawal of care, Hospice)? DNR status @ -No What co-morbidities impacted this encounter? (DM, HTN, Smoking, COPD, CAD, Cancer, CVA, ARF, Chemo, Hep., AIDS, mental health diagnosis, sleep apnea, morbid obesity)? @ -None Was patient admitted / discharged? Hospital course, mention meds given and route, prescriptions, significant lab abnormalities, going to OR and other pertinent info. @ -Discharged. X-ray shows no acute fracture or dislocation the left foot or ankle. Pain controlled. The left foot was wrapped in Blake bandage for sprain. Patient concerned with ambulation due to pain she was given crutches. She will bear weight as tolerated and follow-up with drilling fluids specialist. Patient does have [place] at home. She is encouraged to take Tylenol and save [place] for severe pain as she is ALLERGIC to ibuprofen. Undiagnosed new problem with uncertain prognosis? @ -No Drug Therapy requiring intensive monitoring for toxicity (Heparin, Nitro, Insulin, Cardizem)? @ -[No] Were any procedures done? @ -yes, blake bandage wrap Diagnosis/symptom? @ -Left foot sprain Acute, or Chronic, or Acute on Chronic? @ -Acute Uncomplicated (without systemic symptoms) or Complicated (systemic symptoms)? @ -uncomplicated Side effects of treatment? @ -[No] Exacerbation, Progression, or Severe Exacerbation? @ -[No] Poses a threat to life or bodily function? How? (Chest pain, [place], [place], pneumonia, PE, COPD, DKA, ARF, appy, cholecystitis, CVA, Diverticulitis, Homicidal, Suicidal, threat to staff... and all critical care pts) @ -[No] Dr. Hendrickson is my attending Disposition Clinical Impression: Sprain of left foot Disposition: HOME SELF-CARE Condition: Good Instructions (If sedation given, give patient instructions): Foot Sprain (ED) Additional Instructions: Rest and elevate the joint as much as possible. Ice the injury for the next 24- 48 hours. If symptoms continue after, apply warm compress. Take Tylenol as needed for pain. Follow-up with primary care provider in 1 to 2 days. Return to the emergency department if you experience new, concerning, or worsening symptoms. Is patient prescribed a controlled substance at d/c from ED?: No Referrals: Savanah Prather MD [Primary Care Provider] - 1-2 days
[2022-08-24 18:03] VITALS: BP 112/64; PULSE 72
== END 2022-08-24 18:03 | disposition home or self-care (01) ==
LOC: EC 15:45
DX: S93.602A Unspecified sprain of left foot, initial encounter (principal); I25.10 Atherosclerotic heart disease of native coronary artery without angina pectoris; E07.9 Disorder of thyroid, unspecified; F41.9 Anxiety disorder, unspecified; F31.9 Bipolar disorder, unspecified; F12.90 Cannabis use, unspecified, uncomplicated; M19.90 Unspecified osteoarthritis, unspecified site; Z87.891 Personal history of nicotine dependence; Z86.73 Personal history of transient ischemic attack (TIA), and cerebral infarction without residual deficits; Z79.890 Hormone replacement therapy; Z79.1 Long term (current) use of non-steroidal anti-inflammatories (NSAID); Z79.51 Long term (current) use of inhaled steroids; Z79.899 Other long term (current) drug therapy; Z88.5 Allergy status to narcotic agent; Z88.6 Allergy status to analgesic agent; Z88.0 Allergy status to penicillin; Z88.1 Allergy status to other antibiotic agents; Z88.8 Allergy status to other drugs, medicaments and biological substances; Z91.09 Other allergy status, other than to drugs and biological substances; V29.99XA Rider (driver) (passenger) of other motorcycle injured in unspecified traffic accident, initial encounter
CPT/HCPCS: 99284

== ENCOUNTER → 2022-12-11 | Day surgery (SDC) | payer MEDICARE, OTHER ==
--- NOTE | 2022-12-19 10:07 | MM ---
Risk Values: Tena 5 year model risk: 1.3%. NCI Lifetime model risk: 5.0%. Prior Study Comparison: 07/21/2021 Bilateral MG 3D screening mammo w/cad, [facility]. 08/03/2021 Left MG 3D work up w/cad LT, [facility]. 11/13/2022 Bilateral MG 3D diag mammo w/cad YAYA, [facility]. Pathology Description: Approach: CC FA Needle Type: Eviva Cores: 5 Skin Nicks: 1 Gauge: 9 NO PROBLEMS The procedure of stereotactic guided core biopsy was explained to the patient. Benefits, alternatives, and risks were discussed. An informed consent was then obtained. The shortness pathway for biopsy was chosen. Shortness pathway was superior approach. A vacuum assisted biopsy gun was used to obtain multiple core samples. The patient tolerated the procedure well without any immediate complication. The patient was kept in the radiology department for short stay after the procedure and then discharged home in stable condition. Targeted calcifications are identified in specimen mammogram. Post biopsy mammogram shows the clip to appear in satisfactory position relative to the targeted area of concern on the preprocedure images. Impression: SUCCESSFUL, UNCOMPLICATED STEREOTACTIC GUIDED CORE BIOPSY OF AREA OF CONCERN IN THE left BREAST. Pathology Results: Result: Benign, Fibrocystic change. LEFT BREAST, CORE BIOPSY: Proliferative fibrocystic change with columnar cell change, favored nodular sclerosing adenosis, apocrine metaplasia, usual ductal hyperplasia and rare microcalcifications (see note). Negative for diagnostic in situ or invasive carcinoma. Notes A benign proliferation of tubular ductal structures is seen which is well circumscribed with little intervening stromal between tubules. Due to at least focal compression of tubules within this area, a diagnosis of benign nodular sclerosing adenosis is considered. However, a benign mammary tubular adenoma is also in the differential diagnosis. Both are benign processes. In order to confirm the diagnosis, immunohistochemistry with smooth muscle myosin heavy chain and CK5/6 is performed with appropriate controls on block A2. Myosin heavy chain staining and CK5/6 both stain positive within the myoepithelial cells surrounding ductal structures, and CK5/6 stains positive within intraductal cells within areas of usual ductal hyperplasia. Overall Assessment: Benign Management: Diagnostic Mammogram of the left breast in 6 months. Electronically signed and approved by: Aiden Miner DO
== END ==
LOC: RADMAMWWP 09:57
PROVIDERS: ATTEND Surgery
DX: N60.22 Fibroadenosis of left breast (principal); N60.82 Other benign mammary dysplasias of left breast; N62 Hypertrophy of breast
CPT/HCPCS: 88305; 88342; 88341; 19081; A4648

== ENCOUNTER 2023-05-13 15:38 | Emergency (ER) | payer MEDICARE ==
[2023-05-13 16:00] VITALS: BP 157/107; PULSE 89; RESP 20; TEMP 98.5
--- NOTE | 2023-05-13 16:04 | ED ---
General Adult HPI - General Chief complaint: Recheck/Abnormal Lab/Rx Stated complaint: lump L side jaw Time Seen by Provider: 05/13/23 15:43 Source: patient, RN notes reviewed, old records reviewed Mode of arrival: ambulatory Limitations: no limitations - History of Present Illness Initial comments: 67-year-old female presenting with several days of pain and swelling at the left angle of the jaw. No fever. Patient had coronavirus approximately 3 weeks ago. Denies sore throat. - Related Data Home Medications Medication Instructions Recorded Confirmed Levothyroxine Sodium [Synthroid] 25 mcg PO DAILY 08/11/13 11/14/22 Primidone [Mysoline] 50 mg PO HS 08/11/13 11/14/22 LORazepam [Ativan] 2 mg PO HS 03/19/19 11/14/22 Hydrocodone/Acetaminophen 1 tab PO BID PRN 09/13/21 11/14/22 [Hydrocodone/Acetaminophen 5-325] Albuterol Sulfate [Albuterol 2 puff PO RT-Q6H PRN 08/24/22 11/14/22 Sulfate Hfa] Flonase Headache And Allergy 1 tab PO DAILY 08/24/22 11/14/22 Relief Tablets Fluticasone Propionate 110 Mcg 2 puff INHALATION RT-BID PRN 08/24/22 11/14/22 [Flovent 110 Mcg Inhaler] Naloxegol Oxalate [Movantik] 12.5 mg PO HS PRN 08/24/22 11/14/22 Multivitamin/Iron/Folic Acid 1 each PO DAILY 11/14/22 11/14/22 [Centrum Women Tablet] Previous Rx's Medication Instructions Recorded Cephalexin [Keflex] 500 mg PO Q6HR 7 Days #28 cap 05/13/23 Allergies Allergy/AdvReac Type Severity Reaction Status Date / Time codeine Allergy Unknown Verified 05/13/23 15:43 erythromycin base Allergy Rash/Hives Verified 05/13/23 15:43 [From E-Mycin] ibuprofen Allergy FLUSHED Verified 05/13/23 15:43 FEELING ACROSS UPPER CHEST Penicillins Allergy hallucinati Verified 05/13/23 15:43 ons,hives Tetracyclines Allergy Rash/Hives Verified 05/13/23 15:43 morphine AdvReac Rash/Hives Verified 05/13/23 15:43 plastic bandaids Allergy welts on Uncoded 05/13/23 15:43 skin Review of Systems ROS Statement: Those systems with pertinent positive or pertinent negative responses have been documented in the HPI. ROS Other: All systems not noted in ROS Statement are negative. Past Medical History Past Medical History: Coronary Artery Disease (CAD), Chest Pain / Angina, CVA/TIA, GERD/Reflux, Musculoskeletal Disorder, Neurologic Disorder, Osteoarthritis (OA), Pneumonia, Seizure Disorder, Thyroid Disorder Additional Past Medical History / Comment(s): received both Moderna Covid Vaccines,central pontinemyelinilysis-(cpm), myoclonic jerks a form of seizures frequestly occurs, tremors, pt stated 10 cva-lt sided weakness, occ trouble swallowing, H/O cardiac arrest at 12 year old post Appendectomy-1967.falls, tinnitus,bronchitis, scoliosis, endometerois, uterine fibroids, gout in past, uti, sinus problems, fx to rt ankle,rtand lt wrist, lt elbow,8 ribs, peptic ulcer History of Any Multi-Drug Resistant Organisms: None Reported Past Surgical History: Appendectomy, Heart Catheterization, Hysterectomy Additional Past Surgical History / Comment(s): 2 uterine suspension then Total abdominal hysterectomy, lasik eye sx sophia, d&c,bronchoscopy x3, lt hand sx. Past Anesthesia/Blood Transfusion Reactions: No Reported Reaction Additional Past Anesthesia/Blood Transfusion Reaction / Comment(s): blood transfusions-no reaction Past Psychological History: Anxiety, Bipolar, Depression Smoking Status: Former smoker Past Alcohol Use History: Rare Past Drug Use History: Marijuana - Past Family History Mother Family Medical History: Diabetes Mellitus Father Family Medical History: Cancer Brother(s) Family Medical History: Coronary Artery Disease (CAD) Sister(s) Family Medical History: No Reported History Daughter(s) Family Medical History: No Reported History General Exam Limitations: no limitations General appearance: alert, in no apparent distress Head exam: Present: atraumatic, normocephalic Eye exam: Present: normal appearance, PERRL ENT exam: Absent: normal oropharynx (Mild pharyngeal erythema no tonsillar swelling, I do not palpate a parotid stone however the parotid gland is enlarged. No erythema.) Respiratory exam: Present: normal lung sounds bilaterally. Absent: respiratory distress, wheezes Cardiovascular Exam: Present: regular rate, normal rhythm GI/Abdominal exam: Present: soft. Absent: distended Extremities exam: Present: normal inspection Neurological exam: Present: alert Psychiatric exam: Present: normal affect, normal mood Course Vital Signs 05/13/23 15:41 Temperature 98.5 F Pulse Rate 89 Respiratory 20 Rate Blood Pressure 157/107 O2 Sat by Pulse 99 Oximetry Medical Decision Making - Medical Decision Making Was pt. sent in by a medical professional or institution (, SHANNAN, DIRECTOR SOFTWARE, urgent care, hospital, or half-way...) When possible be specific @ -No Did you speak to anyone other than the patient for history (EMS, parent, family, police, friend...)? What history was obtained from this source @ -No Did you review nursing and triage notes (agree or disagree)? Why? @ -I reviewed and agree with nursing and triage notes Were old charts reviewed (outside hosp., previous admission, EMS record, old EKG, old radiological studies, urgent care reports/EKG's, half-way records)? Report findings @ -No old charts were reviewed Differential Diagnosis (chest pain, altered mental status, abdominal pain women, abdominal pain men, vaginal bleeding, weakness, fever, dyspnea, syncope, headache, dizziness, GI bleed, back pain, seizure, CVA, palpatations, mental health, musculoskeletal)? @ -Parotitis, sialoadenitis, facial cellulitis, dental abscess EKG interpreted by me (3pts min.). @ -As above X-rays interpreted by me (1pt min.). @ -None done CT interpreted by me (1pt min.). @ -None done U/S interpreted by me (1pt. min.). @ -None done What testing was considered but not performed or refused? (CT, X-rays, U/S, labs)? Why? @ -None What meds were considered but not given or refused? Why? @ -None Did you discuss the management of the patient with other professionals (professionals i.e. SHANNAN Lin, DIRECTOR SOFTWARE, lab, RT, psych nurse, social media sr strategy manager, boiler house supervisor, teacher, risk control officer, keycase assembler)? Give summary @ -No Was smoking cessation discussed for >3mins.? @ -No Was critical care preformed (if so, how long)? @ -No Were there social determinants of health that impacted care today? How? (Homelessness, low income, unemployed, alcoholism, drug addiction, transportation, low edu. Level, literacy, decrease access to med. care, [facility], rehab)? @ -No Was there de-escalation of care discussed even if they declined (Discuss DNR or withdrawal of care, Hospice)? DNR status @ -No What co-morbidities impacted this encounter? (DM, HTN, Smoking, COPD, CAD, Cancer, CVA, ARF, Chemo, Hep., AIDS, mental health diagnosis, sleep apnea, morbid obesity)? @ -None Was patient admitted / discharged? Hospital course, mention meds given and route, prescriptions, significant lab abnormalities, going to OR and other pertinent info. @ -67-year-old female with swelling to the angle of the mandible left side, minimally tender, no overlying erythema or induration. The tympanic membrane is normal. I do suspect the sialoadenitis. Will initiate antibiotics at this time with close outpatient follow-up and instructed the patient to suck on lemon drops. Undiagnosed new problem with uncertain prognosis? @ -No Drug Therapy requiring intensive monitoring for toxicity (Heparin, Nitro, Insulin, Cardizem)? @ -No Were any procedures done? @ -No Diagnosis/symptom? @ -[Sialadenitis Acute, or Chronic, or Acute on Chronic? @ -Acute Uncomplicated (without systemic symptoms) or Complicated (systemic symptoms)? @ -Default Side effects of treatment? @ -No Exacerbation, Progression, or Severe Exacerbation? @ -No Poses a threat to life or bodily function? How? (Chest pain, [place], [place], pneumonia, PE, COPD, DKA, ARF, appy, cholecystitis, CVA, Diverticulitis, Homicidal, Suicidal, threat to staff... and all critical care pts) @ -No Disposition Clinical Impression: Parotid sialoadenitis Disposition: HOME SELF-CARE Condition: Good Instructions (If sedation given, give patient instructions): Parotid Duct Obstruction (ED), Sialoadenitis (ED) Additional Instructions: Please use lemon drops throughout the day. Prescriptions: Cephalexin [Keflex] 500 mg PO Q6HR 7 Days #28 cap Is patient prescribed a controlled substance at d/c from ED?: No Referrals: Savanah Prather MD [Primary Care Provider] - 1-2 days Time of Disposition: 16:04
== END 2023-05-13 16:19 | disposition home or self-care (01) ==
LOC: EC 15:38
DX: K11.20 Sialoadenitis, unspecified (principal); Z88.0 Allergy status to penicillin; Z88.1 Allergy status to other antibiotic agents; Z88.5 Allergy status to narcotic agent; Z88.6 Allergy status to analgesic agent; Z91.048 Other nonmedicinal substance allergy status; Z87.891 Personal history of nicotine dependence; Z86.73 Personal history of transient ischemic attack (TIA), and cerebral infarction without residual deficits
CPT/HCPCS: 99283

== ENCOUNTER 2023-06-12 16:19 | Emergency (ER) | payer MEDICARE, OTHER ==
--- NOTE | 2023-06-12 16:47 | ED ---
General Adult HPI - General Chief complaint: Neuro Symptoms/Deficit Stated complaint: R Eye Issues Time Seen by Provider: 06/12/23 16:24 Source: patient, EMS, RN notes reviewed, old records reviewed Mode of arrival: EMS Limitations: no limitations - History of Present Illness Initial comments: 67-year-old female presents for evaluation of vision changes in her right eye. This has been intermittent over the past 1 week. Patient has previous history o f CVA with baseline dysarthria and expressive aphasia. She denies focal weakness or numbness. Denies headache. Vision changes resolved at the time my evaluation. No chest or abdominal pain. No fever. - Related Data Home Medications Medication Instructions Recorded Confirmed Levothyroxine Sodium [Synthroid] 25 mcg PO DAILY 08/11/13 11/14/22 Primidone [Mysoline] 50 mg PO HS 08/11/13 11/14/22 LORazepam [Ativan] 2 mg PO HS 03/19/19 11/14/22 Hydrocodone/Acetaminophen 1 tab PO BID PRN 09/13/21 11/14/22 [Hydrocodone/Acetaminophen 5-325] Albuterol Sulfate [Albuterol 2 puff PO RT-Q6H PRN 08/24/22 11/14/22 Sulfate Hfa] Flonase Headache And Allergy 1 tab PO DAILY 08/24/22 11/14/22 Relief Tablets Fluticasone Propionate 110 Mcg 2 puff INHALATION RT-BID PRN 08/24/22 11/14/22 [Flovent 110 Mcg Inhaler] Naloxegol Oxalate [Movantik] 12.5 mg PO HS PRN 08/24/22 11/14/22 Multivitamin/Iron/Folic Acid 1 each PO DAILY 11/14/22 11/14/22 [Centrum Women Tablet] Previous Rx's Medication Instructions Recorded Cephalexin [Keflex] 500 mg PO Q6HR 7 Days #28 cap 05/13/23 Allergies Allergy/AdvReac Type Severity Reaction Status Date / Time codeine Allergy Unknown Verified 06/12/23 16:37 erythromycin base Allergy Rash/Hives Verified 06/12/23 16:37 [From E-Mycin] ibuprofen Allergy FLUSHED Verified 06/12/23 16:37 FEELING ACROSS UPPER CHEST Penicillins Allergy hallucinati Verified 06/12/23 16:37 ons,hives Tetracyclines Allergy Rash/Hives Verified 06/12/23 16:37 morphine AdvReac Rash/Hives Verified 06/12/23 16:37 plastic bandaids Allergy welts on Uncoded 06/12/23 16:37 skin Review of Systems ROS Statement: Those systems with pertinent positive or pertinent negative responses have been documented in the HPI. ROS Other: All systems not noted in ROS Statement are negative. Past Medical History Past Medical History: Coronary Artery Disease (CAD), Chest Pain / Angina, CVA/TIA, GERD/Reflux, Musculoskeletal Disorder, Neurologic Disorder, Osteoarthritis (OA), Pneumonia, Seizure Disorder, Thyroid Disorder Additional Past Medical History / Comment(s): received both Moderna Covid Vaccines,central pontinemyelinilysis-(cpm), myoclonic jerks a form of seizures frequestly occurs, tremors, pt stated 10 cva-lt sided weakness, occ trouble swallowing, H/O cardiac arrest at 12 year old post Appendectomy-1967.falls, tinnitus,bronchitis, scoliosis, endometerois, uterine fibroids, gout in past, uti, sinus problems, fx to rt ankle,rtand lt wrist, lt elbow,8 ribs, peptic ulcer History of Any Multi-Drug Resistant Organisms: None Reported Past Surgical History: Appendectomy, Heart Catheterization, Hysterectomy Additional Past Surgical History / Comment(s): 2 uterine suspension then Total abdominal hysterectomy, lasik eye sx sophia, d&c,bronchoscopy x3, lt hand sx. Past Anesthesia/Blood Transfusion Reactions: No Reported Reaction Additional Past Anesthesia/Blood Transfusion Reaction / Comment(s): blood transfusions-no reaction Past Psychological History: Anxiety, Bipolar, Depression Smoking Status: Former smoker Past Alcohol Use History: Rare Past Drug Use History: Marijuana - Past Family History Mother Family Medical History: Diabetes Mellitus Father Family Medical History: Cancer Brother(s) Family Medical History: Coronary Artery Disease (CAD) Sister(s) Family Medical History: No Reported History Daughter(s) Family Medical History: No Reported History General Exam Limitations: no limitations General appearance: alert, in no apparent distress Head exam: Present: atraumatic, normocephalic Eye exam: Present: normal appearance, PERRL, EOMI, other (bedside visual field testing unremarkable). Absent: scleral icterus, conjunctival injection, periorbital swelling, periorbital tenderness Respiratory exam: Present: normal lung sounds bilaterally. Absent: respiratory distress, wheezes Cardiovascular Exam: Present: regular rate, normal rhythm GI/Abdominal exam: Present: soft. Absent: distended, tenderness Extremities exam: Present: normal inspection, normal capillary refill Neurological exam: Present: alert, oriented X3, motor sensory deficit (Expressive aphasia and dysarthria which is baseline. Visual murcia are grossly intact. No limb weakness, no ataxia). Absent: CN II-XII intact Skin exam: Present: warm, dry, intact. Absent: cyanosis, diaphoretic Course Vital Signs 06/12/23 16:25 Temperature 98.2 F Pulse Rate 92 Respiratory 18 Rate Blood Pressure 102/61 O2 Sat by Pulse 91 L Oximetry Medical Decision Making - Medical Decision Making Was pt. sent in by a medical professional or institution (SHANNAN Lin, INSIDE BARREL LATHE OPERATOR, urgent care, hospital, or fdc...) When possible be specific @ -No Did you speak to anyone other than the patient for history (EMS, parent, family, police, friend...)? What history was obtained from this source @ -No Did you review nursing and triage notes (agree or disagree)? Why? @ -I reviewed and agree with nursing and triage notes Were old charts reviewed (outside hosp., previous admission, EMS record, old EKG, old radiological studies, urgent care reports/EKG's, fdc records)? Report findings @ -No old charts were reviewed Differential CVA Ischemic stroke, hemorrhagic stroke, brain tumor, atypical migraine, Wernicke's encephalopathy, seizure, multiple sclerosis, meningitis, encephalitis, hypoglycemia, Guillain-Power, electrolytes disturbance, myasthenia gravis.... This is not meant to be an all-inclusive list EKG interpreted by me (3pts min.). @ -Sinus rhythm low voltage rate of 83, NJ interval 184, QRS duration 77, QTc [address] segment elevation, NJ depression in the inferior leads. X-rays interpreted by me (1pt min.). @ -None done CT interpreted by me (1pt min.). @ -CT brain negative for intracranial hemorrhage or mass effect, CT angiography unremarkable. U/S interpreted by me (1pt. min.). @ -None done What testing was considered but not performed or refused? (CT, X-rays, U/S, labs)? Why? @ -None What meds were considered but not given or refused? Why? @ -None Did you discuss the management of the patient with other professionals (professionals i.e. , PA, INSIDE BARREL LATHE OPERATOR, lab, RT, psych nurse, social services director, streetsweeper operator, teacher, air support control officer, immigration case manager)? Give summary @ -No Was smoking cessation discussed for >3mins.? @ -No Was critical care preformed (if so, how long)? @ -No Were there social determinants of health that impacted care today? How? (Homelessness, low income, unemployed, alcoholism, drug addiction, transportation, low edu. Level, literacy, decrease access to med. care, [facility], rehab)? @ -No Was there de-escalation of care discussed even if they declined (Discuss DNR or withdrawal of care, Hospice)? DNR status @ -No What co-morbidities impacted this encounter? (DM, HTN, Smoking, COPD, CAD, Cancer, CVA, ARF, Chemo, Hep., AIDS, mental health diagnosis, sleep apnea, morbid obesity)? @ -[Previous CVA. Was patient admitted / discharged? Hospital course, mention meds given and route, prescriptions, significant lab abnormalities, going to OR and other pertinent info. @ -67-year-old female with intermittent vision change in the right eye over the past 1 week. Patient's pupils are reactive bilaterally. She has normal external ocular movements, visual murcia are unremarkable. Patient was concerned with previous CVA and TIA that this could be related to stroke although symptoms are currently resolved she received workup including laboratory testing, EKG, CT CT angiography. Workup is unremarkable. I reevaluated the patient and informed her of test results. She was eager for discharge at this time. She states that she would prefer to be discharged and follow-up with her neurologist tomorrow. Given resolved symptoms at this time I do agree to discharge with strict return parameters. Undiagnosed new problem with uncertain prognosis? @ -[No Drug Therapy requiring intensive monitoring for toxicity (Heparin, Nitro, Insulin, Cardizem)? @ -No Were any procedures done? @ -No Diagnosis/symptom? @TIA, vision change Acute, or Chronic, or Acute on Chronic? @ -Acute Uncomplicated (without systemic symptoms) or Complicated (systemic symptoms)? @ -Default Side effects of treatment? @ -No Exacerbation, Progression, or Severe Exacerbation? @ -No Poses a threat to life or bodily function? How? (Chest pain, USA, PA, pneumonia, PE, COPD, DKA, ARF, appy, cholecystitis, CVA, Diverticulitis, Homicidal, Suicidal, threat to staff... and all critical care pts) @ -Low risk at this time - Lab Data Result diagrams: 06/12/23 16:47 06/12/23 16:47 Lab Results 06/12/23 06/12/23 06/12/23 Range/Units 16:47 16:47 16:47 WBC 9.6 (3.8-10.6) k/uL RBC 5.27 (3.80-5.40) m/uL Hgb 15.5 (11.4-16.0) gm/dL Hct 47.1 H (34.0-46.0) % MCV 89.3 (80.0-100.0) fL MCH 29.4 (25.0-35.0) pg MCHC 32.9 (31.0-37.0) g/dL RDW 13.4 (11.5-15.5) % Plt Count 314 (150-450) k/uL MPV 8.3 Neutrophils % 65 % Lymphocytes % 22 % Monocytes % 8 % Eosinophils % 2 % Basophils % 1 % Neutrophils # 6.3 (1.3-7.7) k/uL Lymphocytes # 2.1 (1.0-4.8) k/uL Monocytes # 0.7 (0-1.0) k/uL Eosinophils # 0.2 (0-0.7) k/uL Basophils # 0.1 (0-0.2) k/uL PT 10.9 (10.0-12.5) sec INR 1.0 (<1.2) APTT 23.5 (22.0-30.0) sec Sodium 138 (137-145) mmol/L Potassium 4.0 (3.5-5.1) mmol/L Chloride 106 (98-107) mmol/L Carbon Dioxide 20 L (22-30) mmol/L Anion Gap 12 mmol/L BUN 11 (7-17) mg/dL Creatinine 0.62 (0.52-1.04) mg/dL Est GFR (CKD-EPI)AfAm >90 (>60 ml/min/1.73 sqM) Est GFR (CKD-EPI)NonAf >90 (>60 ml/min/1.73 sqM) Glucose 105 H (74-99) mg/dL Calcium 9.4 (8.4-10.2) mg/dL Total Bilirubin 0.6 (0.2-1.3) mg/dL AST 31 (14-36) U/L ALT 38 H (4-34) U/L Alkaline Phosphatase 90 (38-126) U/L Creatine Kinase 48 (30-135) U/L Troponin I (0.000-0.034) ng/mL Total Protein 7.3 (6.3-8.2) g/dL Albumin 4.1 (3.5-5.0) g/dL 06/12/23 Range/Units 16:47 WBC (3.8-10.6) k/uL RBC (3.80-5.40) m/uL Hgb (11.4-16.0) gm/dL Hct (34.0-46.0) % MCV (80.0-100.0) fL MCH (25.0-35.0) pg MCHC (31.0-37.0) g/dL RDW (11.5-15.5) % Plt Count (150-450) k/uL MPV Neutrophils % % Lymphocytes % % Monocytes % % Eosinophils % % Basophils % % Neutrophils # (1.3-7.7) k/uL Lymphocytes # (1.0-4.8) k/uL Monocytes # (0-1.0) k/uL Eosinophils # (0-0.7) k/uL Basophils # (0-0.2) k/uL PT (10.0-12.5) sec INR (<1.2) APTT (22.0-30.0) sec Sodium (137-145) mmol/L Potassium (3.5-5.1) mmol/L Chloride (98-107) mmol/L Carbon Dioxide (22-30) mmol/L Anion Gap mmol/L BUN (7-17) mg/dL Creatinine (0.52-1.04) mg/dL Est GFR (CKD-EPI)AfAm (>60 ml/min/1.73 sqM) Est GFR (CKD-EPI)NonAf (>60 ml/min/1.73 sqM) Glucose (74-99) mg/dL Calcium (8.4-10.2) mg/dL Total Bilirubin (0.2-1.3) mg/dL AST (14-36) U/L ALT (4-34) U/L Alkaline Phosphatase (38-126) U/L Creatine Kinase (30-135) U/L Troponin I <0.012 (0.000-0.034) ng/mL Total Protein (6.3-8.2) g/dL Albumin (3.5-5.0) g/dL Disposition Clinical Impression: Transient cerebral ischemia Disposition: HOME SELF-CARE Condition: Fair Instructions (If sedation given, give patient instructions): Blurred Vision (ED), Transient Ischemic Attack (ED) Is patient prescribed a controlled substance at d/c from ED?: No Referrals: Savanah Prather MD [Primary Care Provider] - 1-2 days Time of Disposition: 19:10
[2023-06-12 16:59] LABS: Basophils # (A) 0.1 k/uL (0-0.2); Basophils % (A) 1 %; Eosinophils # (A) 0.2 k/uL (0-0.7); Eosinophils % (A) 2 %; HCT 47.1 % (34.0-46.0); HGB 15.5 gm/dL (11.4-16.0); Lymphocytes # (A) 2.1 k/uL (1.0-4.8); Lymphocytes % (A) 22 %; MCH 29.4 pg (25.0-35.0); MCHC 32.9 g/dL (31.0-37.0); MCV 89.3 fL (80.0-100.0); Mean Platelet Volume 8.3; Monocytes # (A) 0.7 k/uL (0-1.0); Monocytes % (A) 8 %; Neutrophils # (A) 6.3 k/uL (1.3-7.7); Neutrophils % (A) 65 %; Platelet Count 314 k/uL (150-450); RBC 5.27 m/uL (3.80-5.40); RDW 13.4 % (11.5-15.5); WBC 9.6 k/uL (3.8-10.6)
[2023-06-12 17:07] LABS: Partial Thromboplastin Time 23.5 sec (22.0-30.0); Prothrombin Time 10.9 sec (10.0-12.5)
[2023-06-12 17:10] LABS: ALT 38 U/L (4-34); AST 31 U/L (14-36); African American GFR (CKD) >90 (>60 ml/min/1.73 sqM); Albumin 4.1 g/dL (3.5-5.0); Alkaline Phosphatase 90 U/L (38-126); Anion Gap 12 mmol/L; Blood Urea Nitrogen 11 mg/dL (7-17); Calcium 9.4 mg/dL (8.4-10.2); Carbon Dioxide 20 mmol/L (22-30); Chloride 106 mmol/L (98-107); Creatine Kinase 48 U/L (30-135); Glucose 105 mg/dL (74-99); Non-African American GFR(CKD) >90 (>60 ml/min/1.73 sqM); Sodium 138 mmol/L (137-145); Total Bilirubin 0.6 mg/dL (0.2-1.3); Total Protein 7.3 g/dL (6.3-8.2)
--- NOTE | 2023-06-12 18:42 | CT ---
EXAMINATION TYPE: CT brain wo con DATE OF EXAM: 06/12/2023 COMPARISON: Neural deficit INDICATION: acute stroke DLP: 1090.4 mGycm, Automated exposure control for dose reduction was used. CONTRAST: None CT of the brain is performed utilizing 3 mm thick sections through the posterior fossa and 3 mm thick sections through the remaining calvarium. Study is performed within 24 hours of arrival to the hosp ital. No abnormal hyperdensity is present to suggest an acute intracranial hemorrhage. No mass lesion is evident. No acute infarcts are evident. Ventricles and sulci are appropriate for the patient age. Paranasal sinuses and mastoid air cells within the [id number] are clear. Hyperostosis frontalis internus, normal variant, is present. No significant interval change is evident. IMPRESSION: 1. No acute intracranial process radiographically apparent. Follow-up MRI can be performed as clini bharath indicated.
--- NOTE | 2023-06-12 18:59 | CT ---
EXAMINATION TYPE: CT angio head neck DATE OF EXAM: 06/12/2023 HISTORY: acute stroke COMPARISON: 02/04/2021 CT DLP: 262.7 mGycm. Automated Exposure Control for Dose Reduction was Utilized. TECHNIQUE: CTA scan of the neck is performed with IV Contrast, patient injected with 65 mL of Isovue 370, axial images are obtained, coronal and sagittal reformatted images are reviewed. Three-D recons tructed images are created on an independent workstation and reviewed. Source images are reviewed. FINDINGS: Carotid/Vascular Structures: There is a 3 vessel arch. Common carotid arteries bifurcate into internal and external carotid arteries without significant ml w limiting stenosis. Minimal plaquing is noted at the left internal carotid artery origin without codie nosis Vertebral arteries are codominant. Internal carotid arteries and vertebral arteries are patent to the skull base. Cervical of [place]: Axial source images are unavailable for review. Vertebral basilar system appears normal. Posterior cerebral vasculature is unremarkable. Internal carotid arteries bifurcate normally into A1 and M1 segments. A2 segments are normal. The anterior communicating artery is patent. Communicating arteries are absent. IMPRESSION: 1. No flow-limiting stenosis bilateral carotid bifurcations. 2. Normal [place] NASCET criteria was used in interpretation of this exam?
[2023-06-12 20:04] VITALS: BP 111/70; PULSE 66; RESP 16; TEMP 97.9
== END 2023-06-12 19:44 | disposition home or self-care (01) ==
LOC: EC 16:19
DX: G45.9 Transient cerebral ischemic attack, unspecified (principal); F12.90 Cannabis use, unspecified, uncomplicated; Z87.891 Personal history of nicotine dependence; Z88.5 Allergy status to narcotic agent; Z88.6 Allergy status to analgesic agent; Z88.0 Allergy status to penicillin; Z88.8 Allergy status to other drugs, medicaments and biological substances
CPT/HCPCS: 36415; 80053; 82550; 84484; 85025; 85610; 85730; 70496; 70450; 70498; 99285; Q9967

== ENCOUNTER → 2023-08-31 | Outpatient (CLI) | payer MEDICARE, OTHER ==
--- NOTE | 2023-08-31 12:21 | MM ---
Reason for Exam: Follow-up at short interval from prior study. Last screening mammogram was performed 9 month(s) ago. Patient History: Menarche at age 12. First Full-Term at age 19. Left ovary removed at age 29. Right ovary removed at age 29. Hysterectomy at age 29. Postmenopausal. 12/11/2022, Benign MG stereo VAD BX LT on the left side. Maternal cousin had breast cancer. Risk Values: Tena 5 year model risk: 1.6%. NCI Lifetime model risk: 5.7%. Prior Study Comparison: 07/21/2021 Bilateral MG 3D screening mammo w/cad, [facility]. 08/03/2021 Left MG 3D work up w/cad LT, [facility]. 11/13/2022 Bilateral MG 3D diag mammo w/cad YAYA, [facility]. Tissue Density: Left: There are scattered areas of fibroglandular density. Findings: Analyzed By CAD. Microclip upper outer quadrant left breast middle to posterior depth at the patient's site of benign biopsy. Some residual asymmetric density remains here. No significant change from prior exams. Overall Assessment: Benign, BI-RAD 2 Management: Screening Mammogram of both breasts in 3 months. In time for the patient's annual exam. Results were given to the patient verbally at the time of exam. Patient should continue monthly self-breast exams. A clinical breast exam by your physician is recommended on an annual basis. This exam should not preclude additional follow-up of suspicious palpable abnormalities. Note on Tena scores and lifetime risk: 1. A Tena score greater than 3% is considered moderate risk. If this is the case, consider specialist referral to assess eligibility for a risk reducing agent. 2. If overall lifetime risk for the development of breast cancer is 20% or higher, the patient may qualify for future screening with alternating mammogram and breast MRI. Electronically signed and approved by: Ted Baker M.D. Radiologist
== END | disposition home or self-care (01) ==
LOC: RADMAMWWP 11:08
PROVIDERS: ATTEND Surgery
DX: R92.8 Other abnormal and inconclusive findings on diagnostic imaging of breast (principal); R92.322 Mammographic fibroglandular density, left breast; Z78.0 Asymptomatic menopausal state; Z80.3 Family history of malignant neoplasm of breast
CPT/HCPCS: 77065; G0279; 77061

== ENCOUNTER → 2023-09-20 | Outpatient (CLI) | payer MEDICARE, OTHER | END | disposition home or self-care (01) | LOC: LABPRL 14:00 | PROVIDERS: ATTEND Family Medicine | DX: E03.9 Hypothyroidism, unspecified (principal) | CPT/HCPCS: 84443 ==

== ENCOUNTER → 2023-12-26 | Outpatient (CLI) | payer MEDICARE, OTHER ==
--- NOTE | 2023-12-29 22:29 | MM ---
Reason for Exam: Screening (asymptomatic). Last mammogram was performed 1 year(s) and 1 month(s) ago. Patient History: Menarche at age 12. First Full-Term at age 19. Left ovary removed at age 29. Right ovary removed at age 29. Hysterectomy at age 29. Postmenopausal. 12/11/2022, Benign MG stereo VAD BX LT on the left side. Maternal cousin had breast cancer, age 50. Risk Values: Tena 5 year model risk: 1.6%. NCI Lifetime model risk: 5.7%. Prior Study Comparison: 08/03/2021 Left MG 3D work up w/cad LT, [facility]. 11/13/2022 Bilateral MG 3D diag mammo w/cad YAYA, [facility]. 08/31/2023 Left MG 3D diag mammo w/cad LT, [facility]. Tissue Density: There are scattered areas of fibroglandular density. Findings: Analyzed By CAD. The pattern is symmetrical. Surgical core marker is within the left breast. Pattern appears stable. No suspicious groups of microcalcifications, spiculated or lobular masses, architectural distortion or other secondary signs of malignancy are mammographically apparent. Overall Assessment: Benign, BI-RAD 2 Management: Screening Mammogram of both breasts in 1 year. A negative mammogram report should not preclude additional follow up of suspicious palpable abnormalities. Patient should continue monthly self breast exam. A clinical breast exam by your physician is recommended on an annual basis and results should be correlated with mammographic findings. Note on Tena scores and lifetime risk: 1. A Tena score greater than 3% is considered moderate risk. If this is the case, consider specialist referral to assess eligibility for a risk reducing agent. 2. If overall lifetime risk for the development of breast cancer is 20% or higher, the patient may qualify for future screening with alternating mammogram and breast MRI. [facility], , 12/29/2023 10:25 PM. Electronically signed and approved by: Andrew Del Angel D.O. Radiologis
== END | disposition home or self-care (01) ==
LOC: RADMAMWWP 15:24
PROVIDERS: ATTEND Surgery
DX: Z12.31 Encounter for screening mammogram for malignant neoplasm of breast (principal); R92.323 Mammographic fibroglandular density, bilateral breasts; Z78.0 Asymptomatic menopausal state; Z80.3 Family history of malignant neoplasm of breast
CPT/HCPCS: 77063; 77067

== ENCOUNTER → 2024-01-02 | Outpatient (CLI) | payer MEDICARE, OTHER ==
[~2024-01-02] MED LIST changes: +SODIUM CHLORIDE 0.9% 250 ML in EMPTY BAG 1 BAG IV PRN; -SODIUM CHLORIDE 0.9% 500 ML 500 ML in EMPTY BAG 1 BAG IV PRN; -ZOLEDRONIC ACID 5 MG in SODIUM CHLORIDE 0.9% 100 ML IV NR
[2024-01-02] MEDS: SODIUM CHLORIDE 0.9% 500 ML 500 ML in EMPTY BAG 1 BAG IV PRN (14:10)
[2024-01-02] MEDS: ZOLEDRONIC ACID 5 MG in SODIUM CHLORIDE 0.9% 100 ML IV NR (14:10)
[2024-01-02 14:16] VITALS: BP 166/88; PULSE 85; RESP 16; TEMP 98.2
== END ==
LOC: PROCWHC3 13:48
PROVIDERS: ATTEND Family Medicine
DX: M81.0 Age-related osteoporosis without current pathological fracture (principal); Z88.5 Allergy status to narcotic agent
CPT/HCPCS: 96365; J3489

== ENCOUNTER 2024-01-30 21:38 | Emergency (ER) | payer MEDICARE, OTHER ==
[2024-01-30 21:49] VITALS: RESP 18; TEMP 98.7
[2024-01-30] MEDS: ONDANSETRON 4 MG/2 ML VIAL IVP STA (21:57)
[2024-01-30] MEDS: HYDROmorphone 1 MG/ML 1 ML SYRINGE IVP STA (21:58)
[2024-01-30] MEDS: SODIUM CHLORIDE 0.9% 1,000 ML IV ONE (22:00)
[2024-01-30 22:03] LABS: Basophils # (A) 0.1 k/uL (0-0.2); Basophils % (A) 1 %; Eosinophils # (A) 0.4 k/uL (0-0.7); Eosinophils % (A) 4 %; HCT 39.8 % (34.0-46.0); HGB 13.2 gm/dL (11.4-16.0); Lymphocytes # (A) 2.8 k/uL (1.0-4.8); Lymphocytes % (A) 34 %; MCHC 33.1 g/dL (31.0-37.0); MCV 87.7 fL (80.0-100.0); Mean Platelet Volume 6.7; Monocytes # (A) 0.5 k/uL (0-1.0); Monocytes % (A) 5 %; Neutrophils # (A) 4.4 k/uL (1.3-7.7); Neutrophils % (A) 53 %; Platelet Count 259 k/uL (150-450); RBC 4.54 m/uL (3.80-5.40); RDW 13.1 % (11.5-15.5); WBC 8.4 k/uL (3.8-10.6)
[2024-01-30 22:16] LABS: ALT 30 U/L (4-34); AST 31 U/L (14-36); African American GFR (CKD) >90 (>60 ml/min/1.73 sqM); Alkaline Phosphatase 67 U/L (38-126); Anion Gap 9 mmol/L; Blood Urea Nitrogen 12 mg/dL (7-17); Calcium 9.5 mg/dL (8.4-10.2); Carbon Dioxide 25 mmol/L (22-30); Chloride 103 mmol/L (98-107); Glucose 113 mg/dL (74-99); Non-African American GFR(CKD) 80 (>60 ml/min/1.73 sqM); Potassium 3.8 mmol/L (3.5-5.1); Sodium 137 mmol/L (137-145); Total Bilirubin 0.3 mg/dL (0.2-1.3); Total Protein 6.5 g/dL (6.3-8.2)
[2024-01-30 22:25] LABS: Partial Thromboplastin Time 25.3 sec (22.0-30.0); Prothrombin Time 10.7 sec (10.0-12.5)
--- NOTE | 2024-01-30 22:34 | ED ---
General Adult HPI - General Chief complaint: Fall Stated complaint: Fall Time Seen by Provider: 01/30/24 21:39 Source: patient, RN notes reviewed, old records reviewed Mode of arrival: EMS - History of Present Illness Initial comments: Patient is a 68-year-old female with a history of chronic back pain on oxycodone at home, chronic lightheadedness and dizziness, CAD, CVA/TIA, seizure disorder who presents emergency department complaining of a fall at home. Is not on blood thinners. States she felt her normal dizziness lost her balance and fell into a glass table. Has no injuries from the glass however is complaining of diffuse back pain that is acute on chronic as well as right ladd pain. Denies loss of consciousness. States she has been feeling ill for the last week or so with just generalized bodyaches. Denies drug use. Denies any other acute complaints. Presents for further evaluation at this time. States the fall was a loss of balance which is chronic for her.No red flag symptoms concerning for cauda equina syndrome as she denies urinary or bowel incontinence or retention, saddle paresthesias, lower extremity paralysis. - Related Data Home Medications Medication Instructions Recorded Confirmed Levothyroxine Sodium [Synthroid] 25 mcg PO DAILY 08/11/13 01/02/24 Primidone [Mysoline] 50 mg PO HS 08/11/13 01/02/24 LORazepam [Ativan] 2 mg PO HS 03/19/19 01/02/24 Albuterol Sulfate [Albuterol 2 puff PO RT-Q6H PRN 08/24/22 01/02/24 Sulfate Hfa] Flonase Headache And Allergy 1 tab PO DAILY PRN 08/24/22 01/02/24 Relief Tablets Fluticasone Propionate 110 Mcg 2 puff INHALATION RT-BID PRN 08/24/22 01/02/24 [Flovent 110 Mcg Inhaler] Naloxegol Oxalate [Movantik] 12.5 mg PO HS PRN 08/24/22 01/02/24 Multivitamin/Iron/Folic Acid 1 each PO DAILY 11/14/22 01/02/24 [Centrum Women Tablet] Baclofen 10 mg PO BID PRN 01/02/24 01/02/24 Chlorphenir/Phenyleph/Aspirin 1 each PO DIRECTED PRN 01/02/24 01/02/24 [Mar[place]isa-[place] Sevr Cold Tab Eff] oxyCODONE HCL/ACETAMINOPHEN 1 each PO Q12HR PRN 01/02/24 01/02/24 [Oxycodone-Acetaminophen 5-325] Allergies Allergy/AdvReac Type Severity Reaction Status Date / Time codeine Allergy Unknown Verified 01/30/24 21:50 erythromycin base Allergy Rash/Hives Verified 01/30/24 21:50 [From E-Mycin] ibuprofen Allergy FLUSHED Verified 01/30/24 21:50 FEELING ACROSS UPPER CHEST Penicillins Allergy hallucinati Verified 01/30/24 21:50 ons,hives Tetracyclines Allergy Rash/Hives Verified 01/30/24 21:50 morphine AdvReac Rash/Hives Verified 01/30/24 21:50 plastic bandaids Allergy welts on Uncoded 01/30/24 21:50 skin Review of Systems ROS Statement: Those systems with pertinent positive or pertinent negative responses have been documented in the HPI. Review of Systems: CONST: Denies fever EYES: Denies blurry vision ENT: Denies nasal congestion C/V: Denies Chest pain RESP: Denies shortness of breath GI: Denies abdominal pain : Denies dysuria SKIN: Denies rash. MSK: Endorses diffuse back pain. NEURO: Denies headache ROS Other: All systems not noted in ROS Statement are negative. Past Medical History Past Medical History: Coronary Artery Disease (CAD), Chest Pain / Angina, CVA/TIA, GERD/Reflux, Musculoskeletal Disorder, Neurologic Disorder, Osteoarthritis (OA), Pneumonia, Seizure Disorder, Thyroid Disorder Additional Past Medical History / Comment(s): received both Moderna Covid Vaccines,central pontinemyelinilysis-(cpm), myoclonic jerks a form of seizures frequestly occurs, tremors, pt stated 10 cva-lt sided weakness, occ trouble swallowing, H/O cardiac arrest at 12 year old post Appendectomy-1967.falls, tinnitus,bronchitis, scoliosis, endometerois, uterine fibroids, gout in past, uti, sinus problems, fx to rt ankle,rtand lt wrist, lt elbow,8 ribs, peptic ulcer History of Any Multi-Drug Resistant Organisms: None Reported Past Surgical History: Appendectomy, Heart Catheterization, Hysterectomy Additional Past Surgical History / Comment(s): 2 uterine suspension then Total abdominal hysterectomy, lasik eye sx sophia, d&c,bronchoscopy x3, lt hand sx. Past Anesthesia/Blood Transfusion Reactions: No Reported Reaction Additional Past Anesthesia/Blood Transfusion Reaction / Comment(s): blood transfusions-no reaction Past Psychological History: Anxiety, Bipolar, Depression, Panic Disorder Smoking Status: Former smoker Past Alcohol Use History: None Reported Past Drug Use History: Marijuana - Past Family History Mother Family Medical History: Diabetes Mellitus Father Family Medical History: Cancer Brother(s) Family Medical History: Coronary Artery Disease (CAD) Sister(s) Family Medical History: No Reported History Daughter(s) Family Medical History: No Reported History General Exam - General Exam Comments Initial Comments: General: Appears in moderate distress secondary to pain. HEAD: Normal with no signs of head trauma. Negative Pepe sign, negative raccoon eyes. EYES: PERRLA, EOMI, conjunctiva normal, no discharge. Pupils are 3 mm and equal bilaterally. ENT: Hearing grossly intact, normal oropharynx. RESPIRATORY: Clear breath sounds bilaterally. No wheezes, rales, or rhonchi. C/V: Regular rate and rhythm. S1 and S2 auscultated, no edema, peripheral pulses 2+ and intact throughout ABD: Abd is soft, nontender, nondistended EXT: Normal range of motion, no obvious deformity. Paraspinal muscle tenderness to palpation diffusely through the cervical, thoracic, lumbar spine. No obvious step-offs or deformities of the mid spine of either the cervical, thoracic, lumbar spine. Pelvis is stable. Tenderness to palpation over the lateral aspect of the right distal tib-fib. Mild bruising present. SKIN: No rashes or lesions observed on exposed skin. NEURO: Alert and oriented x 4. GCS of 15. No focal deficits. Course Vital Signs 01/30/24 01/31/24 21:44 00:05 Temperature 98.7 F Pulse Rate 70 50 L Respiratory 18 18 Rate Blood Pressure 119/58 130/67 O2 Sat by Pulse 97 98 Oximetry Medical Decision Making - Medical Decision Making Was pt. sent in by a medical professional or institution (, PA, EXECUTIVE CREATIVE DIRECTOR, urgent care, hospital, or intermediate...) When possible be specific @ -No Did you speak to anyone other than the patient for history (EMS, parent, family, police, friend...)? What history was obtained from this source @ -No Did you review nursing and triage notes (agree or disagree)? Why? @ -I reviewed and agree with nursing and triage notes Were old charts reviewed (outside hosp., previous admission, EMS record, old EKG, old radiological studies, urgent care reports/EKG's, intermediate records)? Report findings @ -Old charts reviewed confirming patient is a chronic pain patient on oxycodone Differential Diagnosis (chest pain, altered mental status, abdominal pain women, abdominal pain men, vaginal bleeding, weakness, fever, dyspnea, syncope, headache, dizziness, GI bleed, back pain, seizure, CVA, palpatations, mental health, musculoskeletal)? @ -Differential Musculoskeletal Muscular strain, contusion, ligament sprain, fracture, arthritis, septic arthritis, bursitis, cellulitis, muscle spasm, nerve compression, DVT, arterial occlusion, herpes zoster, electrolyte abnormality, tumor.... This is not meant to be in all inclusive list EKG interpreted by me (3pts min.). @ -As above X-rays interpreted by me (1pt min.). @ -Chest, pelvis, right tib-fib x-rays negative for any obvious traumatic injuries. CT interpreted by me (1pt min.). @ -CT brain, cervical, thoracic, lumbar spines negative for any obvious traumatic injury. Chronic degenerative changes present. U/S interpreted by me (1pt. min.). @ -None done What testing was considered but not performed or refused? (CT, X-rays, U/S, labs)? Why? @ -None What meds were considered but not given or refused? Why? @ -None Did you discuss the management of the patient with other professionals (professionals i.e. , PA, EXECUTIVE CREATIVE DIRECTOR, lab, RT, psych nurse, social science professor, aperture mask etcher, teacher, investigation officer, pillowcase cleaner)? Give summary @ -No Was smoking cessation discussed for >3mins.? @ -No Was critical care preformed (if so, how long)? @ -No Were there social determinants of health that impacted care today? How? (Homelessness, low income, unemployed, alcoholism, drug addiction, transportation, low edu. Level, literacy, decrease access to med. care, [facility], rehab)? @ -No Was there de-escalation of care discussed even if they declined (Discuss DNR or withdrawal of care, Hospice)? DNR status @ -No What co-morbidities impacted this encounter? (DM, HTN, Smoking, COPD, CAD, Cancer, CVA, ARF, Chemo, Hep., AIDS, mental health diagnosis, sleep apnea, morbid obesity)? @ -None Was patient admitted / discharged? Hospital course, mention meds given and route, prescriptions, significant lab abnormalities, going to OR and other [facility] info. @ -Patient presents for a fall, not on blood thinners with no loss of conscious. Does not meet criteria as trauma activation. Cervical collar is in place. Vital signs are within acceptable limits. Has diffuse acute on chronic back pain. We will obtain laboratory studies, CT imaging of the brain and spine, as well as chest and pelvis x-ray and right tib-fib x-ray. Patient was in agreement this plan. Patient will be symptomatically treated with IV Dilaudid, Zofran, fluids. Patient is chronically on oxycodone.No red flag symptoms concerning for cauda equina syndrome. EKG shows no signs of acute ischemia. Laboratory studies are all within acceptable limits.Patient's imaging negative for any obvious traumatic injury. Laboratory studies returned within normal limits. Patient will be discharged home at this time. Cervical collar cleared. She was resting comfortably. She was in agreement this plan. She will follow-up with her PCP. I instructed the patient to follow up with their PCP in the next 1-3 days.. I explained that the patient should return to the emergency department if they experience any worsening symptoms. Strict return precautions were discussed with the patient. The patient expressed understanding of these instructions. I answered all questions that the patient had. The patient was discharged home in good condition with their prescriptions and follow up information. Undiagnosed new problem with uncertain prognosis? @ -No Drug Therapy requiring intensive monitoring for toxicity (Heparin, Nitro, Insulin, Cardizem)? @ -No Were any procedures done? @ -No Diagnosis/symptom? @ -Fall, muscle strains and sprains, chronic pain Acute, or Chronic, or Acute on Chronic? @ -Acute Uncomplicated (without systemic symptoms) or Complicated (systemic symptoms)? @ -Uncomplicated Side effects of treatment? @ -None Exacerbation, Progression, or Severe Exacerbation] @ -No Poses a threat to life or bodily function? @ -Unlikely - Lab Data Result diagrams: 01/30/24 21:54 01/30/24 21:54 Lab Results 01/30/24 01/30/24 01/30/24 Range/Units 21:54 21:54 21:54 WBC 8.4 (3.8-10.6) k/uL RBC 4.54 (3.80-5.40) m/uL Hgb 13.2 (11.4-16.0) gm/dL Hct 39.8 (34.0-46.0) % MCV 87.7 (80.0-100.0) fL MCH 29.0 (25.0-35.0) pg MCHC 33.1 (31.0-37.0) g/dL RDW 13.1 (11.5-15.5) % Plt Count 259 (150-450) k/uL MPV 6.7 Neutrophils % 53 % Lymphocytes % 34 % Monocytes % 5 % Eosinophils % 4 % Basophils % 1 % Neutrophils # 4.4 (1.3-7.7) k/uL Lymphocytes # 2.8 (1.0-4.8) k/uL Monocytes # 0.5 (0-1.0) k/uL Eosinophils # 0.4 (0-0.7) k/uL Basophils # 0.1 (0-0.2) k/uL PT 10.7 (10.0-12.5) sec INR 1.0 (<1.2) APTT 25.3 (22.0-30.0) sec Sodium 137 (137-145) mmol/L Potassium 3.8 (3.5-5.1) mmol/L Chloride 103 (98-107) mmol/L Carbon Dioxide 25 (22-30) mmol/L Anion Gap 9 mmol/L BUN 12 (7-17) mg/dL Creatinine 0.78 (0.52-1.04) mg/dL Est GFR (CKD-EPI)AfAm >90 (>60 ml/min/1.73 sqM) Est GFR (CKD-EPI)NonAf 80 (>60 ml/min/1.73 sqM) Glucose 113 H (74-99) mg/dL Calcium 9.5 (8.4-10.2) mg/dL Total Bilirubin 0.3 (0.2-1.3) mg/dL AST 31 (14-36) U/L ALT 30 (4-34) U/L Alkaline Phosphatase 67 (38-126) U/L Total Protein 6.5 (6.3-8.2) g/dL Albumin 4.0 (3.5-5.0) g/dL - EKG Data -: EKG Interpreted by Me EKG Comments: 12-lead Electrocardiogram Interpretation Note EKG was reviewed and interpreted by myself. 12-lead ECG performed at 2157 is interpreted by me as revealing normal sinus rhythm at a rate of 68 beats per minute. [place] is normal. AR interval is 203 ms, QRS duration is 60 ms, QTc is 400 ms.. There were no ST or T wave abnormalities to suggest myocardial ischemia or injury. R wave progression across the precordium was satisfactory. By my interpretation this EKG is non-diagnostic for acute ischemia. Disposition Clinical Impression: Fall, Muscle strain, Chronic pain Disposition: HOME SELF-CARE Condition: Good Instructions (If sedation given, give patient instructions): Fall Prevention for Older Adults (ED) Additional Instructions: Follow-up with your PCP for your chronic pain. You have muscle strains and sprains from your fall. No obvious fracture or injury. Return if worsening symptoms. Is patient prescribed a controlled substance at d/c from ED?: No Referrals: Savanah Prather MD [Primary Care Provider] - 1-2 days Time of Disposition: 00:18
[2024-01-31 00:07] VITALS: BP 130/67; PULSE 50
--- NOTE | 2024-01-31 00:18 | CT ---
EXAM: CT Cervical Spine Without Intravenous Contrast CLINICAL HISTORY: Fall. No LOC. Back pain. TECHNIQUE: Axial computed tomography images of the cervical spine without intravenous contrast. CTDI is 24.5 mGy and DLP is 1514 mGy-cm. This CT exam was performed using one or more of the following dose reduction techniques: automated exposure control, adjustment of the mA and/or kV according to patient size, and/or use of iterative reconstruction technique. COMPARISON: No relevant prior studies available. FINDINGS: Vertebrae: No acute fracture. Maintenance of height of the vertebral bodies. No subluxation. Discs/spinal canal/neural foramina: Multilevel degenerative changes, greatest at C4-5 and C5-6. Soft tissues: Prevertebral soft tissues are unremarkable. Right upper lobe apical pleural-parenchymal probable scarring. IMPRESSION: No acute post-traumatic abnormality. Multilevel degenerative changes.
--- NOTE | 2024-01-31 00:19 | XR ---
EXAM: XR Right Tibia and Fibula, 4 Views CLINICAL HISTORY: pt arrives via [facility] for c/o fall. Pt states she was dizzy and tripped and fell into a tempered glass table TECHNIQUE: Frontal and lateral views of the right tibia and fibula. COMPARISON: No relevant prior studies available. FINDINGS: Bones/joints: Unremarkable. No acute fracture. No dislocation. Soft tissues: Unremarkable. No radiopaque foreign body. IMPRESSION: No acute post-traumatic abnormality.
--- NOTE | 2024-01-31 00:20 | XR ---
EXAM: XR Pelvis, 1 or 2 Views CLINICAL HISTORY: pt arrives via tri ems for c/o fall. Pt states she was dizzy and tripped and fell into a tempered glass table TECHNIQUE: Frontal view of the pelvis. COMPARISON: 10/21/2021. FINDINGS: Bones/joints: Unremarkable. No acute fracture. No dislocation. Soft tissues: No radiopaque foreign body. IMPRESSION: No acute post-traumatic abnormality.
--- NOTE | 2024-01-31 00:20 | XR ---
EXAM: XR Chest, 1 View CLINICAL HISTORY: pt arrives via [facility] ems for c/o fall. pt states she was dizzy and tripped and fell into a tempered glass table TECHNIQUE: Frontal view of the chest. COMPARISON: No relevant prior studies available. FINDINGS: Lungs: No infiltrate. No atelectasis. No CHF. Pleural space: No pleural effusion. No pneumothorax. Heart: Unremarkable. No cardiomegaly. Mediastinum: Unremarkable. Normal mediastinal contour. Bones/joints: Unremarkable. No acute fracture. No radiopaque foreign body. IMPRESSION: No acute post-traumatic abnormality.
--- NOTE | 2024-01-31 00:22 | CT ---
EXAM: CT Lumbar Spine Without Intravenous Contrast CLINICAL HISTORY: Fall. No LOC. Back pain. TECHNIQUE: Axial computed tomography images of the lumbar spine without intravenous contrast. CTDI is 24.5 mGy and DLP is 1514 mGy-cm. This CT exam was performed using one or more of the following dose reduction techniques: automated exposure control, adjustment of the mA and/or kV according to patient size, and/or use of iterative reconstruction technique. COMPARISON: No relevant prior studies available. FINDINGS: Vertebrae: No acute fracture. Maintenance of height of the vertebral bodies. No spondylolisthesis. Bone mineralization within normal limits. Discs/spinal canal/neural foramina: Degenerative changes greatest at L5- S1 with a posterior disc bulge and bilateral facet with mild stenosis. Soft tissues: No paraspinal collection. IMPRESSION: No acute post-traumatic abnormality.
== END 2024-01-31 00:37 | disposition home or self-care (01) ==
LOC: EC 21:38
DX: S39.012A Strain of muscle, fascia and tendon of lower back, initial encounter (principal); G89.29 Other chronic pain; Z88.5 Allergy status to narcotic agent; Z88.1 Allergy status to other antibiotic agents; Z88.0 Allergy status to penicillin; Z91.09 Other allergy status, other than to drugs and biological substances; Z87.891 Personal history of nicotine dependence; W01.190A Fall on same level from slipping, tripping and stumbling with subsequent striking against furniture, initial encounter; Y92.009 Unspecified place in unspecified non-institutional (private) residence as the place of occurrence of the external cause
CPT/HCPCS: 36415; 93005; 80053; 85025; 85610; 85730; 72170; 73590; 71045; 72128; 72125; 72131; 70450; 99285; 96374; 96375; 96361; J2405; J1171

== ENCOUNTER → 2024-03-06 | Outpatient (CLI) | payer MEDICARE, OTHER ==
--- NOTE | 2024-03-06 13:24 | US ---
EXAMINATION TYPE: US abdomen limited DATE OF EXAM: 03/06/2024 COMPARISON: CT abdomen and pelvis CLINICAL INDICATION: Female, 68 years old with history of R19.04 LEFT LOWER QUADRANT ABDOMINAL SWELLI NG, MASS; Left lower quadrant at patient's palpable - 5.4 x 2.1 x 5.8cm area seen, possible lipoma Well-circumscribed oval-shaped lesion in the subcutaneous tissues just below the dermal layer as deta iled above. IMPRESSION: While this lesion has fairly benign imaging characteristics on ultrasound because of siz e, would advise contrast enhanced CT study to more definitively evaluate. [facility], , 03/06/2024 1:22 PM
== END | disposition home or self-care (01) ==
LOC: RADUSWWP 12:44
PROVIDERS: ATTEND Family Medicine
DX: N64.89 Other specified disorders of breast (principal); R19.04 Left lower quadrant abdominal swelling, mass and lump
CPT/HCPCS: 76705